=== PATIENT | female | born 1940 | race Caucasian/White ===

== ENCOUNTER 2024-03-29 18:51 | Inpatient (IN) ==
--- NOTE | 2024-03-29 19:07 | Emergency Department Note ---
Impression & Plan Expressive aphasia, AMS (altered mental status), Anemia, Acute hyponatremia, Hypertensive urgency ED Provider Note NAME: KENIA ACUÑA AGE: 83 SEX: F : 1940 ARRIVES VIA: Walk-In INFORMANT: Patient ED PROVIDER(S): Cordell Topete DO CHIEF COMPLAINT: Expressive aphasia HPI: Patient is an 83-year-old female with a past medical history of diabetes, hypertension, hyperlipidemia and small bowel obstruction who presents to the ER for expressive aphasia which started around 530 per the and she thinks it was around 430. The symptoms got better and then they worsened again and consequently came in. Has improved again. She denies any weakness or numbness in the arms or legs. She admits to a severe headache. No change or loss of vision. No chest pain or shortness of breath. No dysuria, urgency, or frequency. No other exacerbating or remitting factors. ADDITIONAL HISTORY OBTAINED: Per HPI Chronic Medical/Social Conditions Affecting Care: Per HPI PAST MEDICAL HISTORY:See Below PAST SURGICAL HISTORY:See Below FAMILY HISTORY:See Below SOCIAL HISTORY:See Below HOME MEDICATIONS:See Below ALLERGIES:See Below VITALS:See Below PHYSICAL EXAMINATION: GENERAL: Sitting up in bed, alert, well appearing, well nourished, no distress, non-toxic EYE EXAM: normal conjunctiva. PERRL and EOM's grossly intact. OROPHARYNX: mucous membranes are moist NECK: supple, no nuchal rigidity, no adenopathy, non-tender LUNGS: Clear to auscultation. Normal chest wall mechanics HEART: no murmurs, S1 normal and S2 normal ABDOMEN: abdomen soft, non-tender, normo-active bowel sounds, no masses, no rebound or guarding. BACK: Back is symmetrical on inspection and there is no deformity, no midline tenderness, no CVA tenderness. SKIN: no rashes and no bruising UPPER EXTREMITIES: upper extremities are grossly normal. LOWER EXTREMITIES: No pitting edema. NEURO EXAM: Normal sensorium, cranial nerves II-XII intact, slight stuttering and speech, no weakness of arms, no weakness of legs. No drift. Finger to nose intact. Gross sensation intact. MEDICAL DECISION MAKING: Patient is an 83-year-old female who presents ER for expressive aphasia. I was called to triage and evaluate the patient and stroke alert was called. IVs were established medicos obtained. Labs showed no significant leukocytosis and a mild anemia 10.8. With a hyponatremia at 125. Close was mildly elevated at 128. Mag slightly low at 1.2. LFTs bilirubin was unremarkable. Troponin was negative. CT angios of the head and neck were negative for any acute intracranial abnormalities. I discussed with telestroke neurology. Initially plan was to give TNK/prepare upon evaluation patient symptoms did improve significantly. We did treat the blood pressure with labetalol 10 mg as it was 210. This trended down to the 150s. Symptoms improved significantly. Question if this was hypertensive emergency versus TIA. Patient was discussed with the hospitalist admitted for further workup. Consults/Care Managements Discussions: Per [facility] Triage Nursing notes reviewed. Limited review of prior medical records performed Vital Signs: reviewed and remarkable for HTN Differential diagnosis: Differential Diagnosis includes but is not limited to ischemic Stroke, hemorrhagic stroke, bells palsy, mass, neoplasm, migraine headache, seizure, subarachnoid hemorrhage, TIA, and transient global amnesia. ER treatment provided: See below Diagnostics interpreted by me include EKG and cardiac monitoring as listed below: -Cardiac Monitoring: An order was placed for continuous cardiac monitoring. The monitor shows a rate of 80 with sinus rhythm. -ECG: Sinus rhythm rate 81 Left axis No PVCs QTc 457 -Laboratory studies:Interpreted by me as stated above in MDM and shown below. Imaging studies: Xrays: As interpreted by me: Portable AP upright 1 view of the chest shows elevated right hemidiaphragm CTs show: CT angios of the head and neck as described above Procedures:none Critical Care: I have personally spent 31 minutes of critical care time in the direct management of this patient. This includes bedside care, interpretation of diagnostic studies, and testing, discussion with consultants, patient, and family members, and other required patient management activities. This 31 minutes is in excess of all separately billable procedures. Past Med/Surg History Problem List (Updated 03/30/24 @ 00:59 by Cordell Topete DO) Hypertensive urgency (Acute) Acute hyponatremia (Acute) Anemia (Acute) AMS (altered mental status) (Acute) Expressive aphasia (Acute) Stroke-like symptom Hip bursitis, left Fracture of metatarsal of right foot, closed Diabetic ulcer of toe (Acute) DM2 (diabetes mellitus, type 2) (Chronic) HTN (hypertension) (Chronic) HLD (hyperlipidemia) (Chronic) Hx of total knee arthroplasty (Chronic) Hx of total hysterectomy (Chronic) H/O toe surgery (Chronic) S/P cholecystectomy (Chronic) History of carpal tunnel surgery (Chronic) History of esophagogastroduodenoscopy (EGD) (Chronic) H/O colonoscopy (Chronic) "diverticulosis 2013" History of cataract surgery (Chronic) Small bowel obstruction (Acute) Medical History Peripheral neuropathy Amputated toe Social History Smoking Status: Never smoker Hx Alcohol Use: Yes Alcohol type: wine Alcohol type Comment: daily w/dinner Alcohol Intake Frequency: 4 or More x per/Week Hx Substance Use: No Preferred Language: Norwegian Communication Ability: Effective Visual Impairment: Limited Hearing Ability: Normal Managed Care Specialist Required: No Beliefs That Will Affect Care: None marital status: Current Living Situation: Spouse current occupational status: retired Feels Safe at Home: Yes Safety Concerns: Feels Safe At This Time Diet: regular caffeine: Yes during the past year weight has: remained stable Gender Identity: Female Assistive Devices: Cane, Glasses and Walker Allergies Allergies Allergy/AdvReac Type Severity Reaction Status Date / Time Bleach (Sodium Hypochlorite) AdvReac Severe hives, Verified 03/29/24 22:18 itching, rash morphine AdvReac Mild SEVERE Verified 03/29/24 22:18 NAUSEA AND VOMITING Home Meds Home Medications Medication Instructions Recorded Confirmed acetaminophen 500 mg tablet 500 mg PO Q6H PRN Pain 03/29/24 03/29/24 (Tylenol Extra Strength) acyclovir 400 mg tablet 400 mg PO BID PRN flare up 03/29/24 03/29/24 amlodipine 2.5 mg tablet 2.5 mg PO DAILY 03/29/24 03/29/24 atorvastatin 20 mg tablet 20 mg PO DAILY 03/29/24 03/29/24 carvedilol 6.25 mg tablet 6.25 mg PO BID 03/29/24 03/29/24 cephalexin 500 mg capsule 500 mg PO TID 03/29/24 03/29/24 clobetasol 0.05 % topical cream 1 applic topical BID PRN flare 03/29/24 03/29/24 desonide 0.05 % topical cream 1 applic topical BID PRN flare up 03/29/24 03/29/24 ibuprofen 200 mg tablet 200 mg PO Q6H PRN Pain 03/29/24 03/29/24 lisinopril 40 mg tablet 40 mg PO DAILY 03/29/24 03/29/24 magnesium oxide 500 mg PO DAILY 03/29/24 03/29/24 metformin 500 mg tablet,extended 500 mg PO QAM 03/29/24 03/29/24 release 24 hr omeprazole 20 mg capsule,delayed 20 mg PO QAM 03/29/24 03/29/24 release peg 400-propylene glycol (PF) 0.4 1 drp ophthalmic (eye) BID 03/29/24 03/29/24 %-0.3 % eye drops in a dropperette (Systane (PF)) trazodone 100 mg tablet 100 mg PO HS 03/29/24 03/29/24 Results & Data (ED) Vital Signs Vital Signs - 24 hr 03/29/24 18:56 03/29/24 19:03 03/29/24 19:22 Temperature 36.6 C Temperature Source Temporal Artery Scan Pulse Rate 79 81 Pulse Rate [Radial] Respiratory Rate Respiratory Effort / Characteristics Respiratory Depth Respiratory Pattern Blood Pressure Blood Pressure [Right Arm] 207/102 H Blood Pressure Mean [Right Arm] 137 Pulse Oximetry 97 Oxygen Delivery Method Room Air Sepsis Recent Fever Within 48 Hours No Sepsis New/Unexplained Change in Mental Status No Sepsis Action Taken by Nursing No Action Required 03/29/24 19:27 03/29/24 19:31 03/29/24 19:37 Temperature Temperature Source Pulse Rate 81 Pulse Rate [Radial] 73 Respiratory Rate 17 Respiratory Effort / Characteristics Non-Labored Spontaneous Respiratory Depth Normal Respiratory Pattern Regular Blood Pressure 165/83 H Blood Pressure [Right Arm] 98/74 L 158/83 H Blood Pressure Mean [Right Arm] 82 108 Pulse Oximetry 98 Oxygen Delivery Method Room Air Sepsis Recent Fever Within 48 Hours Sepsis New/Unexplained Change in Mental Status Sepsis Action Taken by Nursing 03/29/24 20:09 03/29/24 20:30 Temperature Temperature Source Pulse Rate Pulse Rate [Radial] 73 73 Respiratory Rate 18 18 Respiratory Effort / Characteristics Non-Labored Spontaneous Non-Labored Spontaneous Respiratory Depth Normal Normal Respiratory Pattern Regular Regular Blood Pressure Blood Pressure [Right Arm] 182/74 H 148/101 H Blood Pressure Mean [Right Arm] 110 116 Pulse Oximetry 98 97 Oxygen Delivery Method Room Air Room Air Sepsis Recent Fever Within 48 Hours Sepsis New/Unexplained Change in Mental Status Sepsis Action Taken by Nursing Laboratory Data 03/29/24 19:20 03/29/24 19:20 Lab Results 03/29/24 03/29/24 03/29/24 Range/Units 19:16 19:20 19:22 WBC 5.75 (4.8-10.8) K/ul RBC 3.02 L (4.20-5.40) M/uL Hgb 10.8 L (12.0-16.0) g/dl POC Hgb 10.5 L (12.0-16.0) g/dl Hct 31.0 L (37.0-47.0) % POC Hct 31 L (37-47) % MCV 102.6 H (80.0-100.0) fL MCH 35.8 H (25.0-34.0) pg MCHC 34.8 (32.0-36.0) g/dL RDW Std Deviation 48.2 H (36.4-46.3) fL RDW Coeff of Jose G 12.8 (11.5-14.5) % Plt Count 196 (130-400) K/uL MPV 8.4 L (9.4-12.4) fL Immature Gran % (Auto) 0.3 % Neut % (Auto) 68.0 % Lymph % (Auto) 18.8 % [place] % (Auto) 11.0 % Eos % (Auto) 1.7 % Baso % (Auto) 0.2 % Neut # (Auto) 3.91 (1.40-6.50) K/uL Lymph # (Auto) 1.08 L (1.20-3.40) K/uL [place] # (Auto) 0.63 H (0.11-0.59) K/uL Eos # (Auto) 0.10 (0.00-0.50) K/uL Baso # (Auto) 0.01 (0.00-0.20) K/uL Immature Gran # (Auto) 0.02 (0.01-0.20) K/uL PT 11.0 (9.0-12.0) Seconds INR 1.0 (0.9-1.1) APTT 30 (21-31) Seconds PTT Ratio 1.1 POC Sodium 126 L (135-144) mmol/L Sodium 125 L (136-145) mmol/L POC Potassium 3.7 (3.3-5.0) mmol/L Potassium 3.6 (3.5-5.1) mmol/L POC Chloride 90 L (101-112) mmol/L Chloride 93 L (98-107) mmol/L Carbon Dioxide 25 (21-32) mmol/L POC Total CO2 24 (24-31) mmol/L Anion Gap 7 (3-11) POC Anion Gap 17.0 (16-25) mmol/L POC BUN 7 (7-18) mg/dl BUN 8 (6-23) mg/dl Creatinine 0.80 (0.6-1.2) mg/dl POC Creatinine 0.8 (0.6-1.3) mg/dl Est Cr Clr Drug Dosing 52.0 ml/min Est GFR ( Amer) 79.6 ml/min Est GFR (Non-Af Amer) 68.7 ml/min BUN/Creatinine Ratio 10.0 (10-20) Glucose 107 H (70-99(Fasting)) mg/dl POC Glucose 108 H (70-99) mg/dl POC Glucose (other) 103 H (70-99) mg/dl Calcium 8.5 L (8.6-10.3) mg/dl POC Ioniz Calcium Carmela 1.17 (1.12-1.32) mmol/l Magnesium 1.2 L (1.7-2.4) mg/dl Total Bilirubin 0.7 (0.2-1.0) mg/dl AST 20 (13-39) U/L ALT 13 (7-52) U/L Alkaline Phosphatase 68 (34-104) U/L Troponin I High Sens 8.1 (0-14) pg/ml Total Protein 5.9 L (6.0-8.3) gm/dl Albumin 3.9 (3.4-5.0) gm/dl Globulin 2.0 L (2.5-4.0) gm/dl Albumin/Globulin Ratio 2.0 (0.9-2) Administered Medications Cephalexin HCl (Cephalexin 500 Mg Cap) 500 mg PO TID [facility]; Protocol Stop: 04/05/24 22:44 Last Admin: 03/29/24 23:49 Dose: 500 mg Documented By: MARIA DOLORES Magnesium Sulfate/Dextrose (Magnesium Sulfate / D5w) 1 gm in 100 mls @ 50 mls/hr IV Q2H [facility] Stop: 03/30/24 02:59 Last Admin: 03/30/24 00:33 Dose: 50 mls/hr Documented By: MARIA DOLORES Infusion: 03/30/24 00:32 Dose: Infused Documented By: MARIA DOLORES Infusion: 03/29/24 23:40 Dose: 50 mls/hr Documented By: MARIA DOLORES Infusion: 03/29/24 22:45 Dose: 0 mls/hr Documented By: MARIA DOLORES Admin: 03/29/24 21:41 Dose: 50 mls/hr Documented By: MARIA DOLORES Sodium Chloride (Nss) 1,000 mls @ 80 mls/hr IV .[id number] [facility] Stop: 03/30/24 10:51 Last Admin: 03/29/24 23:50 Dose: 80 mls/hr Documented By: MARIA DOLORES Insulin Aspart (Insulin Aspart Per Unit Charge) 0 units SC Q6 [facility] Stop: 04/28/24 22:44 Last Admin: 03/29/24 23:48 Dose: Not Given Documented By: MARIA DOLORES Discontinued Medications Acetaminophen (Acetaminophen 325 Mg Tab) 650 mg PO NOW STA Stop: 03/29/24 21:05 Last Admin: 03/29/24 21:39 Dose: 650 mg Documented By: MARIA DOLORES Aspirin (Aspirin Chew 324 Mg) 324 mg PO NOW STA Stop: 03/29/24 21:21 Last Admin: 03/29/24 21:39 Dose: 324 mg Documented By: MARIA DOLORES Carvedilol (Carvedilol 3.125 Mg Tab) 6.25 mg PO NOW STA Stop: 03/29/24 21:34 Last Admin: 03/29/24 22:41 Dose: 6.25 mg Documented By: MARIA DOLORES Gadobutrol (Gadobutrol 65ml Vial) 7.5 ml IV ONCE ONE Stop: 03/29/24 23:14 Last Admin: 03/29/24 23:13 Dose: 7.5 ml Documented By: JUANIS Ioversol (Optiray 320 125ml) 118 ml IV ONCE ONE Stop: 03/29/24 19:09 Last Admin: 03/29/24 19:08 Dose: 118 ml Documented By: MINDY Labetalol HCl (Labetalol Hcl Iv 5 Mg/Ml 20ml) 10 mg IV NOW STA Stop: 03/29/24 19:22 Last Admin: 03/29/24 19:27 Dose: 10 mg Documented By: DAWOOD Labetalol HCl (Labetalol Hcl Iv 5 Mg/Ml 20ml) 10 mg IV NOW STA Stop: 03/29/24 21:20 Last Admin: 03/29/24 21:40 Dose: 10 mg Documented By: MARIA DOLORES Imaging Data Radiologist's Impression: Head CT 03/29/24 19:05 CR Exam(s): CT HEAD Without Contrast EXAM: CT Head Without Intravenous Contrast CLINICAL HISTORY: Reason for exam: neuro deficit, acute stroke suspected. TECHNIQUE: Axial computed tomography images of the head/brain without intravenous contrast. CTDI is 45.89 mGy and DLP is 677.48 mGy-cm. Automated exposure control was utilized for the study. A dose lowering technique was utilized adhering to the principles of ALARA. Mild motion artifact. COMPARISON: Head CT 02/04/24. FINDINGS: Brain: No mass effect or acute infarct. No acute hemorrhage. Mild to moderate atrophy and chronic white matter disease, stable. Ventricles: No hydrocephalus or midline shift. Bones/joints: No skull fracture. Soft tissues: No scalp hematoma. Visualized Sinuses: Clear. Mastoid air cells: No mastoid effusion. IMPRESSION: 1. Stable age-related findings. 2. No acute infarct, bleed, or acute intracranial abnormality. Communications: Call Doctor Stroke Electronically signed by: Ilana Young M.D. 03/29/24 19:34 PM Head CTA 03/29/24 19:05 CR Exam(s): CTA HEAD With Contrast IV Amt: OPTIRAY 320 118ML EXAM: CT Angiography Head With Intravenous Contrast CLINICAL HISTORY: Reason for exam: neuro deficit, acute stroke suspected. TECHNIQUE: Axial computed tomographic angiography images of the head with intravenous contrast. CTDI is 11.47 mGy and DLP is 398.9 mGy-cm. Automated exposure control was utilized for the study. A dose lowering technique was utilized adhering to the principles of ALARA. MIP reconstructed images were created and reviewed. Venous contamination and mild motion artifact. CONTRAST: Patient received OPTIRAY 320 118ML of IV contrast COMPARISON: Head CT done earlier. FINDINGS: Right internal carotid artery: Patent. Right anterior cerebral artery: Patent. Right middle cerebral artery: Patent. Right posterior cerebral artery: Patent. Right vertebral artery: Nondominant, terminates as a PICA. Left internal carotid artery: Patent. Left anterior cerebral artery: Patent. Left middle cerebral artery: Patent. Left posterior cerebral artery: Patent. Left vertebral artery: Moderate atherosclerotic calcification with approximately moderate, 50-60% stenosis. Basilar artery: Patent. Other: Bilateral cavernous ICA atherosclerosis, with approximately moderate, 50-60% stenosis. Patent dural venous sinuses. IMPRESSION: 1. Intracranial atherosclerosis and approximately, 50-60% stenosis. 2. No aneurysm or large vessel occlusion. Communications: Call Doctor Stroke Electronically signed by: Ilana Young M.D. 03/29/24 19:34 PM Neck CTA 03/29/24 19:05 CR Exam(s): CTA NECK With Contrast IV Amt: OPTIRAY 320 118ML EXAM: CT Angiography Neck With Intravenous Contrast CLINICAL HISTORY: Reason for exam: neuro deficit, acute stroke suspected. TECHNIQUE: Routine carotid CT angiography protocol was performed with intravenous contrast. NASCET criteria using the distal ICAs for comparison were used for evaluation of stenoses. CTDI is 11.47 mGy and DLP is 398.9 mGy-cm. Automated exposure control was utilized for the study. A dose lowering technique was utilized adhering to the principles of ALARA. MIP reconstructed images were created and reviewed. Mild motion and dental metal artifact. CONTRAST: Patient received OPTIRAY 320 118ML of IV contrast COMPARISON: None. FINDINGS: Right common carotid artery: Patent. Right internal carotid artery: Dense atherosclerotic calcification, with moderate, 60-70% stenosis.. Right vertebral artery: Patent. Left common carotid artery: Patent. Left internal carotid artery: Dense/complex atherosclerotic plaque, limited detail due to motion artifact. Moderate, 60-70% stenosis. Left vertebral artery: Patent. Left dominant system. Other: IMPRESSION: 1. Dense atherosclerotic calcification, with moderate bilateral ICA stenosis, 60-70%. 2. No other dissection/occlusion/significant stenosis. CAROTID STENOSIS REFERENCE USING NASCET CRITERIA: % ICA stenosis = (1 - narrowest ICA diameter/diameter of distal cervical ICA) x 100. Mild - <50% stenosis. Moderate - 50-69% stenosis. Severe - 70-94% stenosis. Near occlusion - 95-99% stenosis. Occluded - 100% stenosis. Communications: Call Doctor Stroke Electronically signed by: Ilana Young M.D. 03/29/24 19:34 PM Discharge Plan Visit Data Chief Complaint: Confusion Stated Complaint: DIFFICULTY WITH SPEECH FROM MED ED Provider: Cordell Topete Discharge Problem: Expressive aphasia, AMS (altered mental status), Anemia, Acute hyponatremia, Hypertensive urgency Discharge Instructions Interventions: ED Discharge Assessment Last Done: 03/29/24 22:22 Discharge Problem: AMS (altered mental status) Qualifiers: Altered mental status type: unspecified Qualified Code(s): R41.82 - Altered mental status, unspecified Anemia Qualifiers: Anemia type: unspecified type Qualified Code(s): D64.9 - Anemia, unspecified
[2024-03-29] MEDS: OPTIRAY 320 125ml IV ONE (19:08)
[2024-03-29] MEDS: LABETALOL HCL IV 5 MG/ML 20ML IV STA ×2 (19:27→21:40)
[2024-03-29 19:32] LABS: Basophils # (auto) 0.01 K/uL (0.00-0.20); Basophils % (auto) 0.2 %; Eosinophils % (auto) 1.7 %; Hemoglobin 10.8 g/dl (12.0-16.0); Immature Granulocytes # (auto) 0.02 K/uL (0.01-0.20); Immature Granulocytes % (auto) 0.3 %; Lymphocytes # (auto) 1.08 K/uL (1.20-3.40); Lymphocytes % (auto) 18.8 %; Mean Corpuscular Hemoglobin 35.8 pg (25.0-34.0); Mean Corpuscular Hgb Conc 34.8 g/dL (32.0-36.0); Mean Corpuscular Volume 102.6 fL (80.0-100.0); Mean Platelet Volume 8.4 fL (9.4-12.4); Monocytes # (auto) 0.63 K/uL (0.11-0.59); Neutrophils # (auto) 3.91 K/uL (1.40-6.50); Platelet Count 196 K/uL (130-400); RDW Coefficient of Variation 12.8 % (11.5-14.5); RDW Standard Deviation 48.2 fL (36.4-46.3); Red Blood Count 3.02 M/uL (4.20-5.40); White Blood Count 5.75 K/ul (4.8-10.8)
[2024-03-29 19:35] LABS: iSTAT Creatinine 0.8 mg/dl (0.6-1.3); iSTAT Hemoglobin 10.5 g/dl (12.0-16.0); iSTAT Ionized Calcium 1.17 mmol/l (1.12-1.32); iSTAT Potassium 3.7 mmol/L (3.3-5.0)
--- NOTE | 2024-03-29 19:35 | CT Scan Report ---
Exam(s): CTA HEAD With Contrast IV Amt: OPTIRAY 320 118ML EXAM: CT Angiography Head With Intravenous Contrast CLINICAL HISTORY: Reason for exam: neuro deficit, acute stroke suspected. TECHNIQUE: Axial computed tomographic angiography images of the head with intravenous contrast. CTDI is 11.47 mGy and DLP is 398.9 mGy-cm. Automated exposure control was utilized for the study. A dose lowering technique was utilized adhering to the principles of ALARA. MIP reconstructed images were created and reviewed. Venous contamination and mild motion artifact. CONTRAST: Patient received OPTIRAY 320 118ML of IV contrast COMPARISON: Head CT done earlier. FINDINGS: Right internal carotid artery: Patent. Right anterior cerebral artery: Patent. Right middle cerebral artery: Patent. Right posterior cerebral artery: Patent. Right vertebral artery: Nondominant, terminates as a PICA. Left internal carotid artery: Patent. Left anterior cerebral artery: Patent. Left middle cerebral artery: Patent. Left posterior cerebral artery: Patent. Left vertebral artery: Moderate atherosclerotic calcification with approximately moderate, 50-60% stenosis. Basilar artery: Patent. Other: Bilateral cavernous ICA atherosclerosis, with approximately moderate, 50-60% stenosis. Patent dural venous sinuses. IMPRESSION: 1. Intracranial atherosclerosis and approximately, 50-60% stenosis. 2. No aneurysm or large vessel occlusion. Communications: Call Doctor Stroke Electronically signed by: Ilana Young M.D. 03/29/24 19:34 PM
--- NOTE | 2024-03-29 19:35 | CT Scan Report ---
Exam(s): CT HEAD Without Contrast EXAM: CT Head Without Intravenous Contrast CLINICAL HISTORY: Reason for exam: neuro deficit, acute stroke suspected. TECHNIQUE: Axial computed tomography images of the head/brain without intravenous contrast. CTDI is 45.89 mGy and DLP is 677.48 mGy-cm. Automated exposure control was utilized for the study. A dose lowering technique was utilized adhering to the principles of ALARA. Mild motion artifact. COMPARISON: Head CT 02/04/24. FINDINGS: Brain: No mass effect or acute infarct. No acute hemorrhage. Mild to moderate atrophy and chronic white matter disease, stable. Ventricles: No hydrocephalus or midline shift. Bones/joints: No skull fracture. Soft tissues: No scalp hematoma. Visualized Sinuses: Clear. Mastoid air cells: No mastoid effusion. IMPRESSION: 1. Stable age-related findings. 2. No acute infarct, bleed, or acute intracranial abnormality. Communications: Call Doctor Stroke Electronically signed by: Ilana Young M.D. 03/29/24 19:34 PM
--- NOTE | 2024-03-29 19:35 | CT Scan Report ---
Exam(s): CTA NECK With Contrast IV Amt: OPTIRAY 320 118ML EXAM: CT Angiography Neck With Intravenous Contrast CLINICAL HISTORY: Reason for exam: neuro deficit, acute stroke suspected. TECHNIQUE: Routine carotid CT angiography protocol was performed with intravenous contrast. NASCET criteria using the distal ICAs for comparison were used for evaluation of stenoses. CTDI is 11.47 mGy and DLP is 398.9 mGy-cm. Automated exposure control was utilized for the study. A dose lowering technique was utilized adhering to the principles of ALARA. MIP reconstructed images were created and reviewed. Mild motion and dental metal artifact. CONTRAST: Patient received OPTIRAY 320 118ML of IV contrast COMPARISON: None. FINDINGS: Right common carotid artery: Patent. Right internal carotid artery: Dense atherosclerotic calcification, with moderate, 60-70% stenosis.. Right vertebral artery: Patent. Left common carotid artery: Patent. Left internal carotid artery: Dense/complex atherosclerotic plaque, limited detail due to motion artifact. Moderate, 60-70% stenosis. Left vertebral artery: Patent. Left dominant system. Other: IMPRESSION: 1. Dense atherosclerotic calcification, with moderate bilateral ICA stenosis, 60-70%. 2. No other dissection/occlusion/significant stenosis. CAROTID STENOSIS REFERENCE USING NASCET CRITERIA: % ICA stenosis = (1 - narrowest ICA diameter/diameter of distal cervical ICA) x 100. Mild - <50% stenosis. Moderate - 50-69% stenosis. Severe - 70-94% stenosis. Near occlusion - 95-99% stenosis. Occluded - 100% stenosis. Communications: Call Doctor Stroke Electronically signed by: Ilana Young M.D. 03/29/24 19:34 PM
[2024-03-29 19:44] LABS: Partial Thromboplastin Ratio 1.1; Partial Thromboplastin Time 30 Seconds (21-31)
[2024-03-29 19:52] LABS: Albumin Level 3.9 gm/dl (3.4-5.0); Bilirubin,Total 0.7 mg/dl (0.2-1.0); Calcium 8.5 mg/dl (8.6-10.3); Est GFR (African American) 79.6 ml/min; Est GFR (Non-African American) 68.7 ml/min; Magnesium 1.2 mg/dl (1.7-2.4); Potassium 3.6 mmol/L (3.5-5.1); Total Protein 5.9 gm/dl (6.0-8.3)
[2024-03-29 19:59] LABS: Troponin I High Sensitivity 8.1 pg/ml (0-14)
[2024-03-29] MEDS ORDERED: MAGNESIUM SULFATE / D5W 1 GM/100 ML BAG IV SCH (20:45)
--- OUTSIDE RECORDS SUMMARY | 2024-03-29 21:25 | External Medical Summary | Summary of Care ---
Author Name Unknown Organization [facility] Address [address] [place] [address] Phone [phone] Care Team Providers Care Tribal Delegate Name Role Phone Steven Waterman DO Primary Care Provider [phone] Encounter Details Date Type Department Care Team (Late st Contact Info) Description 03/20/2024 Orders Only Family Practice [address] [facility] [address] [place] [phone] Steven Waterman DO [address] [place] [address] Allergies Active Allergy Reactions Criticality Noted Date Comments Glutaral Rash 08/16/2018 Itchy, dry scabs Morphine Sulfate 06/02/2006 vomiting Cholestyramine 10/05/2021 NAUSEA AND VOMITING documented as of this encounter (statuses as of 03/20/2024) Medications Medication Sig Dispensed Refills Start Date End Date Status Polyethyl Glycol-Propyl Glycol 0.4-0.3 % Ophthalmic Solution Instill 1 Drop into both eyes in the morning and 1 Drop before bedtime. Active Desonide 0.05 % creamIndications:Al lergic dermatitis due to other chemical product APPLY TO RASH ON THE FACE & ARMS TWO TIMES A DAY NEEDED FOR FLARES 60 g 1 09/23/2019 Active Fluocinonide 0.05 % external solutionIndications :Allergic dermatitis due to other chemical product APPLY TO SCALP DAILY NEEDED FOR FLARES. 60 mL 1 04/10/2020 Active Acyclovir 400 MG Oral Tablet (ZOVIRAX) Take 1 Tab by mouth 2 times a day. for supression 60 Tab 11 06/01/2020 Active Magnesium Oxide 500 MG Oral Capsule Take 500 mg by mouth daily. 30 Capsule 5 06/15/2021 Active Additional Information Patient taking differently:500 mg OralBID (0700,1900), Reported on 10/03/2022 Clobetasol Propionate 0.05 % External Cream (Temovate)Indicatio ns:Dermatitis APPLY TO RASH ON THE ARMS AND BODY TWICE DAILY FOR 1 WEEK NEEDED FOR FLARES 60 g 1 09/23/2021 Active Acetaminophen 500 MG Oral Tablet (Tylenol) Take 1 Tablet by mouth every 6 hours as needed for Pain, Moderate. 100 Tablet 12/07/2021 Active Atorvastatin Calcium 20 MG Oral Tablet (Lipitor) TAKE 1 TABLET BY MOUTH EVERY DAY 90 Tablet 3 07/25/2023 Active Ibuprofen 200 MG Oral Tablet (Advil) Take 1 Tablet by mouth every 4 hours as needed. Active Lisinopril 40 MG Oral TabletIndications:H TN, goal below 140/90 TAKE 1 TABLET BY MOUTH EVERY DAY 90 Tablet 3 09/26/2023 Active traZODone HCl 100 MG Oral Tablet (Desyrel) TAKE 1 TABLET BY MOUTH EVERYDAY AT BEDTIME 90 Tablet 2 11/08/2023 Active Carvedilol 6.25 MG Oral Tablet (Coreg)Indications: HTN, goal below 140/90 TAKE 1 TABLET BY MOUTH TWICE A DAY WITH BREAKFAST AND DINNER 180 Tablet 1 11/17/2023 Active Omeprazole 20 MG Oral Capsule Delayed Release (PriLOSEC)Indicatio ns:Gastroesophageal reflux disease without esophagitis TAKE 1 CAPSULE BY MOUTH EVERY DAY IN THE MORNING 1 HOUR PRIOR TO FIRST MEAL 90 Capsule 3 01/18/2024 Active Tavaborole 5 % External Solution APPLY TOPICALLY TO AFFECTED TOENAILS ONCE DAILY FOR 48 WEEKS (6 MONTHS) Active metFORMIN HCl ER 500 MG Oral Tablet Extended Release 24 Hour (Glucophage XR)Indications:Type 2 diabetes mellitus with diabetic peripheral angiopathy without gangrene, without long-term current use of insulin (HCC),Type 2 diabetes mellitus with hemoglobin A1c goal of less than 7.0% (HCC) Take 1 Tablet by mouth 2 times a day with morning and evening meals. 200 Tablet 3 01/29/2024 Active Additional Information Patient taking differently:500 mg OralDaily(AM), Reported on 02/06/2024 amLODIPine Besylate 2.5 MG Oral Tablet (Norvasc) TAKE 1 TABLET BY MOUTH EVERY DAY 90 Tablet 3 02/29/2024 Active documented as of this encounter (statuses as of 03/20/2024) Active Problems Problem Noted Date Diagnosed Date Nontraumatic complete tear of left rotator cuff 09/22/2023 Purpura senilis 09/24/2020 Anxiety, generalized 02/28/2020 Dyslipidemia 08/15/2019 Gastroesophageal reflux disease without esophagi tis 08/15/2019 History of partial amputation of toe of left perlita t 02/12/2019 Acquired absence of other left toe(s) 08/15/2018 Type 2 diabetes mellitus wit h diabetic peripheral angiopathy without gangrene, without long-term current use of insulin 01/24/2017 HTN, goal below 140/90 10/14/2014 Type 2 diabetes mellitus wit h hemoglobin A1c goal of less than 7.0% 05/28/2009 Overview: Per Diabetes Taxonomy. ICD-10 update of inactive term Knee joint replacement status 09/06/2006 ADVANCE DIRECTIVE INFORMATION 02/02/2005 Overview: No, Advance Directive brochure given to patient. documented as of this encounter (statuses as of 03/20/2024) Resolved Problems Problem Noted Date Diagnosed Date Resolved Date Skin ulcer of toe of right f oot with fat layer exposed 12/07/2021 12/07/2021 Avascular necrosis of talus, right 08/15/2018 09/22/2023 Amputated toe, right 08/15/2018 019 Type 2 diabetes mellitus wit h stage 3 chronic kidney disease and hypertension 03/06/2018 03/04/20 24 Kidney disease, chronic, sta ge III (GFR 30-59 ml/min) 05/09/2016 03/06/2018 Overview: Per CKD protocol #1 HTN, goal below 140/80 03/19/201210/14 Overview: Per HTN Protocol #27. HTN, GOAL BELOW 130/80 06/23/200903/22 Overview: Modified per HTN protocol #16. HTN, goal to be determined 11/07/2006 1 08/23/2008 Overview: Modified per HTN protocol #16. Type 2 diabetes mellitus wit h hemoglobin A1c goal of less than 7.0% 11/07/2006 05/28/2009 Overview: Per Diabetes Taxonomy. ICD-10 update of inactive term Anticoagulation management encounter 09/06/2006 09/17/2016 OSTEOARTHROS NOS-L-LEG 05/13/200308/15 documented as of this encounter (statuses as of 03/20/2024) Immunizations Name Administration Dates Next Due COVID-19 mRNA, LNP-s, No Pre serve, 2-Dose Series (Moderna) 09/26/2020,08/22/2020 COVID-19, MRNA-LNP, 23-24, P F, 30 MCG/0.3 mL, 12 YRS AND ABOVE, IM (PFIZER-Comirnaty) 01/29/2024,05/19/2023 COVID-19, mRNA, LNP-s, PF, B ooster, 100mcg/0.5mg (Moderna) 05/03/2022,10/12/2021,05/31/2021 Covid-19, Mrna, Lnp-s, Pf, B ivalent, 30 Mcg, IM, 12 yrs and above (CallAround) 05/03/2022 Pneumococcal Conjugate Vacc, 13 Valent (Prevnar) 10/16/2015 Pneumococcal Polysaccharide PPV23 (Pneumovax) 09/01/2014,11/15/2005 RSV Vac., Bivalent, Perfusio n F, Pf,0.5 Ml (Abrysvo) 10/02/2023 Seasonal Influenza, Quadriva lent Hd (Fluzone Hd) 04/04/2023 Seasonal Influenza, Quadriva lent Hd, 65+ Yrs 03/21/2020 Seasonal Influenza, Quadrivalent, ID 04/30/2018 Seasonal Influenza, Split, I IV3, With Preserve, Inj 06/03/2015,04/30/2014,04/23/2013,04/04,04/04/2011,04/13/2010,06/03/2009 ,06/06/2007,06/09/2006 Seasonal Influenza, Trivalen t, High Dose, No Preserve, IM 04/07/2022,04/07/2021,05/06/2019,04/28,05/04/2016 TD, Preservative Free 06/26/2007 TDAP (age 10 and older)(Boostrix) 09/01/2014 Varicella Zoster Vaccine (Adult) 06/30/2006 Zoster Vaccine Recombinant (Shingrix) 01/19/2018 ,11/01/2017 documented as of this encounter Social History Tobacco Use Types Packs/Day Years Used Date Smoking Tobacco: Never Passive Smoke Exposure: Past Smokeless Tobacco: Never Alcohol Use Standard Drinks/Week Comments Yes 0 (1 standard drink = 0.6 oz pur e alcohol) 2/day PHQ-2 Answer Date Recorded PHQ Adult Total Score 1 10/02/2023 Hunger Vital Sign Answer Date Recorded Within the past 12 months, y ou worried that your food would run out before you got the money to buy more. Never true 04/04/20 23 Within the past 12 months, t he food you bought just didn't last and you didn't have money to get more. Never true 04/04/2023 Childcare Answer Date Recorded Do you feel overwhelmed with taking care of a child, family member or friend? No 04/04/2023 Does your family need help f inding childcare? (Household - for ages 0-17 years) Not on file 04/04/2023 Clothing Answer Date Recorded Have you been unable to get clothing when it was really needed? No 04/04/2023 Is your family able to get c lothes or diapers when needed? (Household - for ages 0-17 years) Not on file 04/04/2023 Personal Safety Answer Date Recorded Do you feel unsafe or have concerns for your saf ety? No 04/04/2023 Do you have concerns for you r family's safety? (Household - for ages 0-17 years) Not on file 04/04/2023 Utilities Answer Date Recorded Do you have trouble paying y our heating, water, or electric bill? No 04/04/2023 Is your family able to pay t he heat, water, or electric bill? (Household - for ages 0-17 years) Not on file 04/04/2023 Does your family have access to good internet? (Household - for ages 0-17 years) Not on file 04/04/2023 Employment Status Answer Date Recorded Are you unemployed or without regular income? No 04/04/2023 Does the household have a re gular source of income? (Household - for ages 0-17 years) Not on file 04/04/2023 Social Connections Answer Date Recorded How often do you feel lonely or isolated from th ose around you? Never 04/04/2023 Financial Resource Strain Answer Date R ecorded Do you have any trouble payi ng for your medications, or do you think you might in the future? No 04/04/2023 Does your family have troubl e paying for medicine? (Household - for ages 0-17 years) Not on file 04/04/2023 Transportation Needs Answer Date Record ed READ ONLY Do you have troubl e getting a ride to medical visits or work? Never True 04/04/2023 Does your family have a hard time getting a ride to doctors visits? (Household - for ages 0-17 years) Not on file 04/04/2023 Has lack of transportation k ept you from medical appointments, meetings, work, or from getting things needed for daily living? Check all that apply. (Adult - for ages 18 years and over) Not on file 04/04/2023 Do you (or your family) have trouble finding or paying for a ride (transportation)? (Household - for ages 0-17 years) Not on file 04/04/2023 Housing Stability Answer Date Recorded Do you currently live in a s helter or have no steady place to sleep at night? No 04/04/2023 READ ONLY Do you think you a re at risk of becoming homeless? No 04/04/2023 Does your family worry about paying for your home or becoming homeless? (Household - for ages 0-17 years) Not on file 0 04/04/2023 Are you homeless or worried that you might be in the future? (Adult - for ages 18 years and over) Not on file Are you (or your family) ruben eless or worried that you might be in the future? (Household - for ages 0-17 years) Not on file Food Insecurity Answer Date Recorded Do you need food for this week? No 04/04/2023 Are you able to get enough f ood for your family? (Household - for ages 0-17 years) Not on file 04/04/2023 Does your family need food t his week? (Household - for ages 0-17 years) Not on file 04/04/2023 Do you always have enough fo od for your family? (Household - for ages 0-17 years) Not on file 04/04/2023 Sex and Gender Information Value Date Recorded Sex Assigned at Female 02/11/2022 11:51 AM EDT Gender Identity Female 02/11/2022 11:51 AM EDT Sexual Orientation Straight 02/11/2022 11 :51 AM EDT Job Start Date Occupation Industry Not on file Not on file Not on file documented as of this encounter Plan of Treatment Upcoming Encounters Date Type Department Care Team (Late st Contact Info) Description 04/23/2024 10:45 AM EDT Office Visit [facility] [address] [place] [phone] Shekhar Gordillo MD [address] [place] [address] 04/30/2024 11:20 AM EDT Office Visit [facility] [address] [place] [address] Maryam Gordon MD [address] [facility] [place] [address] 05/02/2024 10:00 AM EDT Office Visit [facility] [address] [facility] [place] [address] Thomas Barros PA-C [address] [place] [address] 06/04/2024 10:40 AM EST Office Visit Family Practice [address] [place] [address] [address] [place] [phone] Steven Waterman DO [address] [place] [address] 10/04/2024 1:00 PM EST Nurse Only Ancillary [address] [place] [address] [place] [address] College, Nurse Annual Wellness Visit [address] [facility] [address] [place] [address] Health Maintenance Due Date Last Done Comments DXA Scan 03/14/2022 03/14/2018, 0 12/2013, 04/02/2010, Additional history exists Influenza Vaccine (FLU shot) (#1) 2024 04/04/2023, 04/07/2022, 04/07/2021, Additional history exists HbA1c 07/27/2024 01/26/2024, 08/31, 05/08/2023, Additional history exists DTaP,Tdap,and Td Vaccines (2 - Td or Tdap) 09/01/2024 09/01/2014, 06/26/2007 Adult Wellness Visit 10/01/2024 10/02/2023, 09/30/19 23 Depression Screening 10/01/2024 10/02/2023 Albumin/Creatinine Ratio 01/25/2025 024, 03/27/2023, 06/17/2022, Additional history exists GFR 01/25/2025 01/26/2024, 09/29, 10/13/2023, Additional history exists Diabetic Foot Exam 03/04/2025 03/04/2024, 0 04/04/2023, 02/11/2022, Additional history exists Diabetic Eye Exam 03/20/2025 03/20/2024, , 03/15/2023, Additional history exists Pneumococcal Vaccine: 65+ Years Completed 10/16/2015, 09/01/2014, 11/15/2005 Zoster Vaccines Completed 01/19/2018, 040 10/2017, 06/30/2006 COVID-19 Vaccine Completed 01/29/2024, , 05/03/2022, Additional history exists HPV (Gardasil) Vaccine Aged Out No lo nger eligible based on patient's age to complete this topic Hepatitis B Vaccine Aged Out No longe r eligible based on patient's age to complete this topic MENINGOCOCCAL (MENACTRA/MENVEO) Aged Out No longer eligible based on patient's age to complete this topic documented as of this encounter Medical Devices Implanted Type Area Tennis Centre Manager Device Identifier Shelf Expiration Date Model / Serial / Lot Biocomposite Knotless Corkscrew Suture Marshallberg Implanted:Qty: 4 on 01/14/2022 by Fernando Armstrong DO at OR [facility] Right: Shoulder [employer] 04/29/2023 AR-[id number] / / [id number] Suture Marshallberg, Biocomposite Swivelock With Closed Peek Eyelet Implanted:Qty: 1 on 01/14/2022 by Fernando Armstrong DO at OR [facility] Right: Shoulder 07/30/2025 AR-2324BCC TT / / [id number] Suture Marshallberg, Biocomposite Swivelock With Closed Peek Eyelet Implanted:Qty: 1 on 01/14/2022 by Fernando Armstrong DO at OR [facility] Right: Shoulder 07/30/2025 AR-2324BCC T / / [id number] Graft Arthroflex [id number] (28 Units) - [id number] - [id number] Implanted:Qty: 1 on 01/14/2022 by Fernando Armstrong DO at OR [facility] Right: Shoulder [employer] 07/15/2022 [id number] Biocomposite Knotless Swivelock Marshallberg Implanted:Qty: 1 on 01/14/2022 by Fernando Armstrong DO at OR [facility] Right: Shoulder [employer] 10/28/2025 AR-2324KBC C / / [id number] Biocomposite Knotless Swivel Lock Marshallberg Implanted:Qty: 1 on 01/14/2022 by Fernando Armstrong DO at OR [facility] Right: Shoulder [employer] 10/28/2025 AR-2324KBC C / / [id number] documented as of this encounter Procedures Procedure Name Priority Date/Time Associated Diagnosis Comments DIABETIC EYE EXAM Routine 03/20/2024 documented in this encounter Results * DIABETIC EYE EXAM (03/20/2024) 03/20/2024 History Per Patient OTHER OUTSIDE LAB (SEE SCANNED REPORT) documented in this encounter Care Teams Tribal Delegate Relationship Specialty Start Date End Date Steven Waterman DO [address] [place] [address] PCP - General Internal Medicine 01/12/24 documented as of this encounter
[2024-03-29] MEDS: ACETAMINOPHEN 325 MG TAB PO STA (21:39)
[2024-03-29] MEDS: ASPIRIN CHEW 324 MG PO STA (21:39)
[2024-03-29] MEDS: MAGNESIUM SULFATE / D5W 1 GM/100 ML BAG IV SCH (21:41)
[2024-03-29] MEDS ORDERED: GLUCOSE 40% GEL 15 GM TUBE PO PRN (22:22)
[2024-03-29] MEDS ORDERED: POLYETHYLENE (MIRALAX) 17 GM PACK PO PRN (22:22)
[2024-03-29] MEDS ORDERED: CARBOHYDRATES FOR HYPOGLYCEMIA PO PRN (22:22)
[2024-03-29] MEDS ORDERED: ACETAMINOPHEN 325 MG TAB PO PRN (22:22)
[2024-03-29] MEDS ORDERED: PHARMACIST DISCHARGE MED REC CONSULT PRN (22:22)
[2024-03-29] MEDS ORDERED: GLUCOSE 10 TAB/TUBE PO PRN (22:22)
[2024-03-29] MEDS ORDERED: GLUCAGON FOR INJ 1 MG VIAL SQ PRN (22:22)
[2024-03-29] MEDS ORDERED: DEXTROSE 50% 50 ML SYRINGE IV PRN (22:22)
[2024-03-29] MEDS ORDERED: NITROGLYCERIN SL 0.4 MG/TAB TAB SL PRN (22:22)
--- OUTSIDE RECORDS SUMMARY | 2024-03-29 22:23 | External Medical Summary | Summary of Care ---
Author Name Unknown Organization [facility] Address [address] [place] [address] Phone [phone] Care Team Providers Care Check Scaler Name Role Phone Steven Waterman DO Primary Care Provider [phone] Reason for Referral * Evaluate & Treat - Unlimited Visits (Within 10 days (routine)) - Authorized Specialty Diagnoses / Procedures Referred By Contac t Referred To Contact Wound Care Diagnoses Ulcer of right lower extremity, limited to breakdown of skin (HCC) Steven Waterman DO [address] [place] [address] Referral ID Status Reason Start Date Expiration Date Visits Requested Visits Authorized [id number] Authorized Specialty Services Required 03/29/[phone] Question Answer Referral Priority Within 10 days (routine) Where should this appointment be scheduled? [facility] Where is the wound? Below the knee Comments Assess for: Hx of wound healing problem and Other: PVD Reason for Visit * Reason Comments Acute Encounter Details Date Type Department Care Team (Late st Contact Info) Description 03/29/2024 1:40 PM EDT Office Visit Family Practice [address] [place] [address] [place] [address] Steven Waterman DO [address] [place] [address] Ulcer of right lower extremity, limited to breakdown of skin (HCC)*; Cellulitis of right lower extremity; Type 2 diabetes mellitus with diabetic peripheral angiopathy without gangrene, without long-term current use of insulin (HCC); History of partial amputation of toe of left foot (HCC); HTN, goal below 140/90; Dyslipidemia; Gastroesophageal reflux disease without esophagitis; Anxiety, generalized Allergies Active Allergy Reactions Criticality Noted Date Comments Glutaral Rash 08/16/2018 Itchy, dry scabs Morphine Sulfate 06/02/2006 vomiting Cholestyramine 10/05/2021 NAUSEA AND VOMITING documented as of this encounter (statuses as of 03/29/2024) Medications Medication Sig Dispensed Refills Start Date End Date Status Polyethyl Glycol-Propyl Glycol 0.4-0.3 % Ophthalmic Solution Instill 1 Drop into both eyes in the morning and 1 Drop before bedtime. Active Desonide 0.05 % creamIndications :Allergic dermatitis due to other chemical product APPLY TO RASH ON THE FACE & ARMS TWO TIMES A DAY NEEDED FOR FLARES 60 g 1 09/23/2019 Active Fluocinonide 0.05 % external solutionIndicati ons:Allergic dermatitis due to other chemical product APPLY [...] 10/03/2022 Clobetasol Propionate 0.05 % External Cream (Temovate)Indica tions:Dermatitis APPLY TO RASH ON THE ARMS AND [...] as needed. Active Lisinopril 40 MG Oral TabletIndication s:HTN, goal below 140/90 TAKE 1 TABLET BY MOUTH EVERY DAY 90 Tablet 3 09/26/2023 Active traZODone HCl 100 MG Oral Tablet (Desyrel) TAKE 1 TABLET BY MOUTH EVERYDAY AT BEDTIME 90 Tablet 2 11/08/2023 Active Carvedilol 6.25 MG Oral Tablet (Coreg)Indicatio ns:HTN, goal below 140/90 TAKE 1 TABLET BY MOUTH TWICE A DAY WITH BREAKFAST AND DINNER 180 Tablet 1 11/17/2023 Active Omeprazole 20 MG Oral Capsule Delayed Release (PriLOSEC)Indica tions:Gastroesop hageal reflux disease without esophagitis TAKE 1 CAPSULE BY MOUTH EVERY DAY IN THE MORNING 1 HOUR PRIOR TO FIRST MEAL 90 Capsule 3 01/18/2024 Active Tavaborole 5 % External Solution APPLY TOPICALLY TO AFFECTED TOENAILS ONCE DAILY FOR 48 WEEKS (6 MONTHS) Active metFORMIN HCl ER 500 MG Oral Tablet Extended Release 24 Hour (Glucophage XR)Indications:T ype 2 diabetes mellitus with diabetic peripheral angiopathy without gangrene, without long-term current use of insulin ([facility]),Type 2 diabetes mellitus with hemoglobin A1c goal of less than 7.0% (HCC) Take 1 Tablet by mouth 2 times a day with morning and evening meals. 200 Tablet 3 01/29/2024 Active Additional Information Patient taking differently:500 mg OralDaily(AM), Reported on 02/06/2024 amLODIPine Besylate 2.5 MG Oral Tablet (Norvasc) TAKE 1 TABLET BY MOUTH EVERY DAY 90 Tablet 3 02/29/2024 Active Cephalexin 500 MG Oral Capsule (Keflex)Indicati ons:Cellulitis of right lower extremity Take 1 Capsule by mouth in the morning and 1 Capsule at noon and 1 Capsule before bedtime. Do all this for 10 days. 30 Capsule 03/29/2024 4 Active Amoxicillin-Pot Clavulanate 875-125 MG Oral Tablet (Augmentin)Indic ations:Celluliti s of right upper extremity Take 1 Tablet by mouth in the morning and 1 Tablet before bedtime. Do all this for 7 days. 14 Tablet 03/04/2024 4 Discontinued documented as of this encounter (statuses as of 03/29/2024) Active Problems Problem Noted Date Diagnosed Date [...] as of this encounter (statuses as of 03/29/2024) Resolved Problems Problem Noted Date Diagnosed Date [...] as of this encounter (statuses as of 03/29/2024) Immunizations Name Administration Dates Next Due COVID-19 mRNA, LNP-s, No Pre serve, 2-Dose Series (Moderna) 09/26/2020,08/22/2020 COVID-19, MRNA-LNP, 23-24, P F, 30 MCG/0.3 mL, 12 YRS AND ABOVE, IM (PFIZER-Comirnaty) 01/29/2024,05/19/2023 COVID-19, mRNA, LNP-s, PF, B ooster, 100mcg/0.5mg (Moderna) 05/03/2022,10/12/2021,05/31/2021 Covid-19, Mrna, Lnp-s, Pf, B ivalent, 30 Mcg, IM, 12 yrs and above (Pfizer) 05/03/2022 Pneumococcal Conjugate Vacc, 13 Valent (Prevnar) 10/16/2015 Pneumococcal Polysaccharide PPV23 (Pneumovax) 09/01/2014,11/15/2005 RSV Vac., Bivalent, Perfusio n F, Pf,0.5 Ml (Abrysvo) 10/02/2023 Seasonal Influenza, High Dos e, Trivalent, PF, IM (Fluzone HD) 04/07/2022,04/07/2021,05/06/2019,04/28,05/04/2016 Seasonal Influenza, Quadriva lent Hd (Fluzone Hd) 04/04/2023 Seasonal Influenza, Quadriva lent Hd, 65+ Yrs 03/21/2020 Seasonal Influenza, Quadrivalent, ID 04/30/2018 Seasonal Influenza, Trivalen t, (IIV3), with Preserv, (Fluzone) 06/03/2015,04/30/2014,04/23/2013,04/04,04/04/2011,04/13/2010,06/03/2009 ,06/06/2007,06/09/2006 TD, Preservative Free 06/26/2007 TDAP (age 10 and older)(Boostrix) 09/01/2014 Varicella Zoster Vaccine (Adult) 06/30/2006 Zoster Vaccine Recombinant (Shingrix) 01/19/2018 ,11/01/2017 documented as of this encounter Social History Tobacco Use Types Packs/Day Years Used Date Smoking Tobacco: Never Passive Smoke Exposure: Past Smokeless Tobacco: Never Tobacco Cessation:Counseling Given: Yes Alcohol Use Standard Drinks/Week Comments Yes 0 [...] on file documented as of this encounter Last Filed Vital Signs Vital Sign Reading Time Taken Comments Blood Pressure 118/62 03/29/2024 1:49 PM EDT Pulse 64 03/29/2024 1:49 PM EDT Temperature 36 C (96.8 F) 03/29/2024 1:49 PM EDT Respiratory Rate 18 03/29/2024 1:49 PM EDT Oxygen Saturation 98% 03/29/2024 1:49 PM EDT Inhaled Oxygen Concentration - - Weight 76.5 kg (168 lb 9.6 oz) 03/29/2024 1:49 P M EDT Height 157.5 cm (5' 2") 03/29/2024 1:49 PM EDT Body Mass Index 30.84 03/29/2024 1:49 PM EDT documented in this encounter Progress Notes * Steven Waterman, - 03/29/2024 2:14 PM EDT SUBJECTIVE: Zeina Mahmood is a 83 year old female. Chief Complaint Patient presents with Acute HPI: Patient is an 83 year old female with a history of DM type II, HTN, Hyperlipidemia, CKD stage III, GERD, PVD, bilateral knee replacement, and multiple procedures on her feet that is seen for right leg wound that has been present for 2 weeks. The patient hit her right leg going up stairs 2 weeks ago and had a skin tear. The lesion is larger and is not healing. No chest pain or shortness of breath are present. Patient Active Problem List Diagnosis ADVANCE DIRECTIVE INFORMATION Knee joint replacement status Type 2 diabetes mellitus with hemoglobin A1c goal of less than 7.0% ([facility]) HTN, goal below 140/90 Type 2 diabetes mellitus with diabetic peripheral angiopathy without gangrene, without long-term current use of insulin (HCC) Acquired absence of other left toe(s) ([facility]) History of partial amputation of toe of left foot (HCC) Dyslipidemia Gastroesophageal reflux disease without esophagitis Anxiety, generalized Purpura senilis (HCC) Nontraumatic complete tear of left rotator cuff Current Outpatient Medications Medication Sig Dispense Refill Acyclovir 400 MG Oral Tablet (ZOVIRAX) Take 1 Tab by mouth 2 times a day. for supression 60 Tab 11 Magnesium Oxide 500 MG Oral Capsule Take 500 mg by mouth daily. (Patient taking differently: Take 500 mg by mouth in the morning and 500 mg in the evening.) 30 Capsule 5 Acetaminophen 500 MG Oral Tablet (Tylenol) Take 1 Tablet by mouth every 6 hours as needed for Pain,Moderate. 100 Tablet 0 Atorvastatin Calcium 20 MG Oral Tablet (Lipitor) TAKE 1 TABLET BY MOUTH EVERY DAY 90 Tablet 3 Ibuprofen 200 MG Oral Tablet (Advil) Take 1 Tablet by mouth every 4 hours as needed. Lisinopril 40 MG Oral Tablet TAKE 1 TABLET BY MOUTH EVERY DAY 90 Tablet 3 traZODone HCl 100 MG Oral Tablet (Desyrel) TAKE 1 TABLET BY MOUTH EVERYDAY AT BEDTIME 90 Tablet 2 Carvedilol 6.25 MG Oral Tablet (Coreg) TAKE 1 TABLET BY MOUTH TWICE A DAY WITH BREAKFAST AND [id number] Tablet 1 Omeprazole 20 MG Oral Capsule Delayed Release (PriLOSEC) TAKE 1 CAPSULE BY MOUTH EVERY DAY IN THE MORNING 1 HOUR PRIOR TO FIRST MEAL 90 Capsule 3 metFORMIN HCl ER 500 MG Oral Tablet Extended Release 24 Hour (Glucophage XR) Take 1 Tablet by mouth2 times a day with morning and evening meals. (Patient taking differently: Take 1 Tablet by mouth in the morning.) 200 Tablet 3 amLODIPine Besylate 2.5 MG Oral Tablet (Norvasc) TAKE 1 TABLET BY MOUTH EVERY DAY 90 Tablet 3 Cephalexin 500 MG Oral Capsule (Keflex) Take 1 Capsule by mouth in the morning and 1 Capsule at noon and 1 Capsule before bedtime. Do all this for 10 days. 30 Capsule 0 Polyethyl Glycol-Propyl Glycol 0.4-0.3 % Ophthalmic Solution Instill 1 Drop into both eyes in the morning and 1 Drop before bedtime. Desonide 0.05 % cream APPLY TO RASH ON THE FACE & ARMS TWO TIMES A DAY NEEDED FOR FLARES 60 g 1 Fluocinonide 0.05 % external solution APPLY TO SCALP DAILY NEEDED FOR FLARES. 60 mL 1 Clobetasol Propionate 0.05 % External Cream (Temovate) APPLY TO RASH ON THE ARMS AND BODY TWICE DAILY FOR 1 WEEK NEEDED FOR FLARES 60 g 1 Tavaborole 5 % External Solution APPLY TOPICALLY TO AFFECTED TOENAILS ONCE DAILY FOR 48 WEEKS (6 MONTHS) No current facility-administered medications for this visit. The patient's medication list was reviewed and updated as needed. Past Medical History: Diagnosis Date Acquired absence of other left toe(s) ([facility]) 08/15/2018 Bowel obstruction ([facility]) 02/2016 [facility] Diabetic eye exam ([facility]) 08/27/2013 no retinopathy DM type 2, goal A1c below 7 Dyslipidemia 08/15/2019 Fracture, toe 05/2016 Left great toe Gastroesophageal reflux disease without esophagitis 08/15/2019 Hemorrhoids History of partial amputation of toe of left foot ([facility]) 02/12/2019 HTN, goal below 140/90 10/14/2014 Knee joint replacement status 09/06/2006 Osteoarthritis of knee Retinal detachment 06/2015 PPV/EL/C3F8 12%/PST triescence 20mg for Mac-Off RD with serous chorodidals OS, Dr. Toro Retinal tear 09/2015 OD-laser Procedure, Dr. Toro Tendonitis left arm Type 2 diabetes mellitus with stage 3 chronic kidney disease and hypertension ([facility]) 03/06/2018 Past Surgical History: Procedure Laterality Date ARTHO,SHOUL,W/ROTATOR CUFF Right 01/14/2022 ARTHROSCOPY SHOULDER ROTATOR CUFF performed by Fernando Armstrong DO at OR [facility] BUNION CORRECTED WITH DOUBLE OSTEOTOMY BUNION CORRECTED WITH DOUBLE OSTEOTOMY CARPAL TUNNEL SURGERY 09/2007 CARPAL TUNNEL SURGERY 10/2007 COLONOSCOPY diverticulitis acute/[facility] COLONOSCOPY, DIAGNOSTIC (RECTUM) 08/02/2013 COLONOSCOPY FLEXIBLE PROXIMAL DIAGNOSTIC performed by Madan Mendez MD at [facility] DENTAL SURGERY PROCEDURE NEC Dental Surgery Procedure wisdom teeth DIABETIC EYE EXAM 12/02/11 no retinopathy EGD, FLEXIBLE, W/BIOPSY 04/10/09 pathology--stomach, minimal chronic inflammation without H.Pylori--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 Toro MAMMOGRAM - BILATERAL 04/07/05 Birad code 2/benign findings MAMMOGRAM - BILATERAL 04/18/06 birad code 2 MAMMOGRAM - BILATERAL 04/19/07 birad code 2 MAMMOGRAM DIAGNOSTIC BILATERAL 04/23/09 birad code 2,yearly recommended MAMMOGRAM DIAGNOSTIC BILATERAL 04/26/2010 birad code 1,negative,yearly recommended MAMMOGRAM SCREENING BILATERAL 04/28/11 birad code 2 MAMMOGRAM SCREENING-BILATERAL 04/22/08 birad 2, benign, yearly reccm. NAIL BED, PERMANENT REMOVAL 2 PARTIAL REMOVAL OF EYE FLUID Left 07/20/2015 23G PPV/EL/C3F8 12%/PSTTriescence 20mg for macula-off RD w/ serous choroidals OS.; Dr. Toro PARTIAL REMOVAL OF TOE 5th L REMOVAL OF TONSILS, UNDER AGE 12 REMOVE CATARACT, INSERT LENS PROSTH Bilateral 2012 Dr. Dowd REMOVE FOOT NERVE LESION (SHERIDAN) x4 REMOVE GALLBLADDER 1997 REPAIR OF HAMMERTOE, ONE TOE REPAIR OF HAMMERTOE, ONE TOE SHOULDER ARTHROSCOPY/SURGERY Right 01/14/2022 ARTHROSCOPY SHOULDER CAPSULORRHAPHY performed by Fernando Armstrong, DO at OR [facility] TOTAL ABD HYSTERECTOMY W/WO REMOVAL OF TUBE(S) Review of patient's allergies indicates: Allergen Reactions Glutaraldehyde [Glutaral] Rash Itchy, dry scabs Morphine Sulfate vomiting Questran [Cholestyramine] NAUSEA AND VOMITING Review of Systems Constitutional: Negative for appetite change, chills, fatigue, fever and unexpected weight change. Respiratory: Negative for cough, shortness of breath and wheezing. Cardiovascular: Negative for chest pain, palpitations and leg swelling. Gastrointestinal: Negative for abdominal pain, blood in stool, constipation, diarrhea, nausea and vomiting. Genitourinary: Negative for dysuria, frequency and hematuria. Skin: Positive for wound (right leg). Neurological: Negative for dizziness, syncope and headaches. Psychiatric/Behavioral: Negative for confusion, decreased concentration and sleep disturbance. OBJECTIVE: BP 118/62 | Pulse 64 | Temp 36 C (96.8 F) | Resp 18 | Ht 1.575 m (5' 2") | Wt 76.5 kg (168 lb 9.6 oz) | SpO2 98% | BMI 30.84 kg/m | BSA 1.83 m Physical Exam Vitals and nursing note reviewed. Constitutional: General: She is not in acute distress. Appearance: Normal appearance. She is not toxic-appearing. HENT: Head: Normocephalic and atraumatic. Cardiovascular: Rate and Rhythm: Normal rate and regular rhythm. Heart sounds: Normal heart sounds. No murmur heard. No gallop. Pulmonary: Effort: Pulmonary effort is normal. Breath sounds: Normal breath sounds. No wheezing, rhonchi or rales. Abdominal: General: Bowel sounds are normal. There is no distension. Palpations: Abdomen is soft. Tenderness: There is no abdominal tenderness. Musculoskeletal: Right lower leg: No edema. Left lower leg: No edema. Skin: Comments: Right leg stage 1 ulcer eith surrounding erythema, no drainage present Neurological: Mental Status: She is alert and oriented to person, place, and time. Mental status is at baseline. Psychiatric: Mood and Affect: Mood normal. Behavior: Behavior normal. PLAN AND ASSESSMENT: Ulcer of right lower extremity, limited to breakdown of skin (HCC) (Primary) - WOUND CARE REFERRAL OP Cellulitis of right lower extremity - Start Cephalexin 500 MG Oral Capsule (Keflex); Take 1 Capsule by mouth in the morning and 1 Capsule at noon and 1 Capsule before bedtime. Do all this for 10 days. Type 2 diabetes mellitus with diabetic peripheral angiopathy without gangrene, without long-term current use of insulin (HCC) Continue Metformin History of partial amputation of toe of left foot ([facility]) HTN, goal below 140/90 Continue Amlodipine, Lisinopril, and Carvedilol Dyslipidemia Continue Atorvastatin Gastroesophageal reflux disease without esophagitis Continue Omeprazole Anxiety, generalized Continue Trazodone Follow-up: Return in 1 week (on 04/05/2024), or if symptoms worsen or fail to improve. | Check-out note: Schedule with Wound Care Steven Waterman DO 2:14 PM 03/29/2024 documented in this encounter Nursing Notes * Monique Navarro LPN - 03/29/2024 1:47 PM EDT Hit lower right leg going up stairs two weeks ago. Fifty cent piece sized opening with some redness documented in this encounter Plan of Treatment Upcoming Encounters Date Type Department Care Team (Late st Contact Info) Description 04/23/2024 10:45 AM EDT Office Visit [facility] [address] [place] [address] Shekhar Gordillo MD [address] [place] [address] 04/30/2024 11:20 AM EDT Office Visit Nephrology, [facility] [address] [place] [address] Maryam Gordon MD [address] [place] [address] 05/02/2024 10:00 AM EDT Office Visit Orthopaedics [facility] [address] [place] [address] Thomas Barros PA-C [address] [place] [address] 06/04/2024 10:40 AM EST Office Visit Family Practice [address] [facility] [address] [place] [address] Steven Waterman, [address] [place] [address] 10/04/2024 1:00 PM EST Nurse Only Ancillary [address] [address] College, Nurse Annual Wellness Visit [address] [address] Scheduled Referrals Name Type Priority Associated Diagnoses Orde r Schedule WOUND CARE REFERRAL OP Referral Within 10 days (routine) Ulcer of right lower extremity, limited to breakdown of skin (HCC) Ordered: 03/29/2024 Health Maintenance Due Date Last Done Comments DXA Scan 03/30/2024 03/14/2018, 080 12/2013, 04/02/2010, Additional history exists Postponed from 03/14/2022 (Patient Declined After Education) Influenza Vaccine (FLU shot) (#1) 2024 04/04/2023, 04/07/2022, 04/07/2021, Additional history exists HbA1c 07/27/2024 01/26/2024, 08/31, 05/08/2023, Additional history exists DTap/Tdap Vaccines (2 - Td or Tdap) 09/01/2024 09/01/2014, 06/26/2007 Adult Wellness Visit 10/01/2024 10/02/2023, 09/30/19 Depression Screening 10/01/2024 10/02/2023 Albumin/Creatinine Ratio 01/25/2025 024, 03/27/2023, 06/17/2022, Additional history exists GFR 01/25/2025 01/26/2024, 09/29, 10/13/2023, Additional history exists Diabetic Foot Exam 03/04/2025 03/04/2024, 0 04/04/2023, 02/11/2022, Additional history exists Diabetic Eye Exam 03/20/2025 03/20/2024, , 03/15/2023, Additional history exists Pneumococcal Vaccine: 65+ Years Completed 10/16/2015, 09/01/2014, 11/15/2005 Zoster Vaccines Completed 01/19/2018, 10/2017, 06/30/2006 COVID-19 Vaccine Completed 01/29/2024, , [...] this encounter Medical Devices Implanted Type Area Bacteriologist Medical Device Identifier Shelf Expiration Date Model / Serial / Lot Biocomposite Knotless Corkscrew Suture [place] Implanted:Qty: 4 on 01/14/2022 by Fernando Armstrong, DO at OR [facility] Right: Shoulder [employer] 04/29/2023 [id number]-[id number] / / [id number] Suture [place], Biocomposite Swivelock With Closed Peek Eyelet Implanted:Qty: 1 on 01/14/2022 by Fernando Armstrong DO at OR [facility] Right: Shoulder 07/30/2025 AR-2324BCC TT / / [id number] Suture [place], Biocomposite Swivelock With Closed Peek Eyelet Implanted:Qty: 1 on 01/14/2022 by Fernando Armstrong DO at OR [facility] Right: Shoulder 07/30/2025 AR-2324BCC T / / [id number] Graft Arthroflex [id number] (28 Units) - [id number] - [id number] Implanted:Qty: 1 on 01/14/2022 by Fernando Armstrong DO at OR [facility] Right: Shoulder [employer] 07/15/2022 [id number] / [id number] / [id number] Biocomposite Knotless Swivelock [place] Implanted:Qty: 1 on 01/14/2022 by Fernando Armstrong DO at OR [facility] Right: Shoulder [employer] 10/28/2025 AR-[id number] C / / [id number] Biocomposite Knotless Swivel Lock [place] Implanted:Qty: 1 on 01/14/2022 by Fernando Armstrong DO at OR [facility] Right: Shoulder [employer] 10/28/2025 AR-[id number] C / / [id number] documented as of this encounter Visit Diagnoses Diagnosis Ulcer of right lower extremity, limited to breakdown of skin (HCC)- Primary Cellulitis of right lower extremity Cellulitis and abscess of leg, except foot Type 2 diabetes mellitus with diabetic peripheral angiopathy without gangrene, without long-term current use of insulin (HCC) History of partial amputation of toe of left foot (HCC) HTN, goal below 140/90 Unspecified essential hypertension Dyslipidemia Other and unspecified hyperlipidemia Gastroesophageal reflux disease without esophagitis Esophageal reflux Anxiety, generalized Generalized anxiety disorder documented in this encounter Care Teams Check Scaler Relationship Specialty Start Date End Date Steven Waterman DO [address] [place] [address] PCP - General Internal Medicine 01/12/24 documented as of this encounter
[2024-03-29] MEDS: carvediloL 3.125 MG TAB PO STA (22:41)
[2024-03-29] MEDS ORDERED: CLOBETASOL PROPIONATE 0.05% CREAM 15 GM TUBE TOP PRN (22:42)
[2024-03-29] MEDS ORDERED: BETAMETHASONE VAL 0.1% CR 15 GM TOP PRN (22:50)
[2024-03-29] MEDS: GADOBUTROL 65ML VIAL IV ONE (23:13)
--- NOTE | 2024-03-29 23:37 | History & Physical Report ---
Date of Service March 29, 2024 Assessment & Plan (1) Stroke-like symptom: Plan: 83-year-old female with past medical history significant for type 2 diabetes, hyperlipidemia, hypertension, purpura Senilis, GERD, nontraumatic complete tear of left rotator cuff, history of partial amputation of toe of left foot, generalized anxiety comes in because of strokelike symptoms. Around 5 PM patient was having some trouble speaking. Words were coming but with garbled and they were not in order. And on the way to hospital she was also confused. The episode lasted for about half hour and resolved. TNK was not given as symptoms improved. Currently back to baseline. Patient had wound in right hickey region happened a week ago when she was climbing the steps and injured. She went to PCP today and was prescribed Keflex. Her speech symptoms started coming from PCPs office. Currently having headache and ask for pain medication. Vision is okay. No runny nose. No sore throat. No cough. No difficulty swallowing. Currently afebrile. No chest pain or shortness of breath. No nausea. No abdominal pain. Strokelike symptom Seems to had transient expressive aphasia. CT head okay Brain MRI okay CTA head and neck showing moderate bilateral ICA stenosis 60 to 70% Aspirin given Patient on statin Will follow lipid profile and HbA1c levels Neurochecks Speech and PT OT evaluation Neurology consult in a.m. Vascular surgery consult in a.m. Telemetry Close monitor Type 2 diabetes Hold metformin Sliding scale Will follow HbA1c levels Monitor sugars hyponatremia Sodium 125 Will check urine osmolality, serum osmolality and urine sodium levels Getting IV fluids Will monitor for slow correction Nephrology consult in a.m. for further recommendations History of hypertension Continue home medications of amlodipine, Coreg and lisinopril Will monitor GERD On omeprazole Right hickey wound Started on Keflex today by PCP Needs follow-up DVT prophylaxis SCDs for now Disposition Telemetry Full code. History of Present Illness Chief Complaint: Strokelike symptoms Primary Care Provider: Steven Waterman DO 83-year-old female with past medical history significant for type 2 diabetes, hyperlipidemia, hypertension, purpura Senilis, GERD, nontraumatic complete tear of left rotator cuff, history of partial amputation of toe of left foot, generalized anxiety comes in because of strokelike symptoms. Around 5 PM patient was having some trouble speaking. Words were coming but with garbled an d they were not in order. And on the way to hospital she was also confused. The episode lasted for about half hour and resolved. TNK was not given as symptoms improved. Currently back to baseline. Patient had wound in right hickey region happened a week ago when she was climbing the steps and injured. She went to PCP today and was prescribed Keflex. Her speech symptoms started coming from PCPs office. Currently having headache and ask for pain medication. Vision is okay. No runny nose. No sore throat. No cough. No difficulty swallowing. Currently afebrile. No chest pain or shortness of breath. No nausea. No abdominal pain. Past medical history. As mentioned above Past surgical history. Right shoulder arthroscopy. Bunion correction. Carpal tunnel surgery. Colonoscopy. Dental surgery. EGD with biopsy. Bowel surgery for bowel obstruction. Bilateral knee arthroscopy. Right laser trabeculoplasty. Left partial removal of eye fluid. Left fifth toe partial removal. Tonsillectomy. Bilateral cataracts. Cholecystectomy. Repair of hammertoe. Total abdominal hysterectomy with removal of tubes. Social history. . No smoking. Alcohol use 2/day per epic. No drug use. Family history. Mother had arthritis. Rheumatic fever. Stroke. Father had CHF. Brother has diabetes. Allergies Allergy/AdvReac Type Severity Reaction Status Date / Time Bleach (Sodium Hypochlorite) AdvReac Severe hives, Verified 03/29/24 22:18 itching, rash morphine AdvReac Mild SEVERE Verified 03/29/24 22:18 NAUSEA AND VOMITING Home Medications Medication Instructions Recorded Confirmed Type acetaminophen 500 mg tablet 500 mg PO Q6H PRN Pain 03/29/24 03/29/24 History (Tylenol Extra Strength) acyclovir 400 mg tablet 400 mg PO BID PRN flare up 03/29/24 03/29/24 History amlodipine 2.5 mg tablet 2.5 mg PO DAILY 03/29/24 03/29/24 History atorvastatin 20 mg tablet 20 mg PO DAILY 03/29/24 03/29/24 History carvedilol 6.25 mg tablet 6.25 mg PO BID 03/29/24 03/29/24 History cephalexin 500 mg capsule 500 mg PO TID 03/29/24 03/29/24 History clobetasol 0.05 % topical cream 1 applic topical BID PRN flare 03/29/24 03/29/24 History desonide 0.05 % topical cream 1 applic topical BID PRN flare up 03/29/24 03/29/24 History ibuprofen 200 mg tablet 200 mg PO Q6H PRN Pain 03/29/24 03/29/24 History lisinopril 40 mg tablet 40 mg PO DAILY 03/29/24 03/29/24 History magnesium oxide 500 mg PO DAILY 03/29/24 03/29/24 History metformin 500 mg tablet,extended 500 mg PO QAM 03/29/24 03/29/24 History release 24 hr omeprazole 20 mg capsule,delayed 20 mg PO QAM 03/29/24 03/29/24 History release peg 400-propylene glycol (PF) 0.4 1 drp ophthalmic (eye) BID 03/29/24 03/29/24 History %-0.3 % eye drops in a dropperette (Systane (PF)) trazodone 100 mg tablet 100 mg PO HS 03/29/24 03/29/24 History Past Med/Surg History Problem List (Updated 03/30/24 @ 00:59 by Cordell Topete DO) Hypertensive urgency (Acute) Acute hyponatremia (Acute) Anemia (Acute) AMS (altered mental status) (Acute) Expressive aphasia (Acute) Stroke-like symptom Hip bursitis, left Fracture of metatarsal of right foot, closed Diabetic ulcer of toe (Acute) DM2 (diabetes mellitus, type 2) (Chronic) HTN (hypertension) (Chronic) HLD (hyperlipidemia) (Chronic) Hx of total knee arthroplasty (Chronic) Hx of total hysterectomy (Chronic) H/O toe surgery (Chronic) S/P cholecystectomy (Chronic) History of carpal tunnel surgery (Chronic) History of esophagogastroduodenoscopy (EGD) (Chronic) H/O colonoscopy (Chronic) "diverticulosis 2013" History of cataract surgery (Chronic) Small bowel obstruction (Acute) Medical History Peripheral neuropathy Amputated toe Social History Smoking Status: Never smoker Hx Alcohol Use: Yes Alcohol type: wine Alcohol type Comment: daily w/dinner Alcohol Intake Frequency: 4 or More x per/Week Hx Substance Use: No Preferred Language: Ukrainian Communication Ability: Effective Visual Impairment: Limited Hearing Ability: Normal Business Development 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 Head- atraumatic Eyes- PERRL. ENT- oropharynx clear Neck- supple, no JVD. Lungs- clear to auscultation no wheezing or crackles Heart- regular rhythm; no murmur, no gallop. Abdomen- normal bowel sounds, soft, nontender, no distension Extremities-mild pretibial edema, 2 x2 cm wound seen on medial aspect of right hickey Neuro- alert, oriented ; PERRL, no facial palsy; no dysarthria; motor 5/5 bilaterally; no pronator drift, sensations intact Results & Data Results & Data Vital Signs (Past 12 Hours) Vital Signs Temp Pulse Pulse Resp BP BP Pulse Ox 03/29/24 22:00 66 18 157/120 H 99 03/29/24 21:40 88 190/135 H 03/29/24 20:30 73 18 148/101 H 97 03/29/24 20:09 73 18 182/74 H 98 03/29/24 19:37 158/83 H 03/29/24 19:31 73 17 98/74 L 98 03/29/24 19:27 81 165/83 H 03/29/24 19:22 81 03/29/24 19:03 207/102 H 03/29/24 18:56 36.6 C 79 97 O2 Del Method 03/29/24 22:00 Room Air 03/29/24 21:40 03/29/24 20:30 Room Air 03/29/24 20:09 Room Air 03/29/24 19:37 03/29/24 19:31 Room Air 03/29/24 19:27 03/29/24 19:22 03/29/24 19:03 03/29/24 18:56 Room Air Diagnostic Findings Laboratory Results WBC 5.75 K/ul (4.8-10.8) 03/29/24 19:20 RBC 3.02 M/uL (4.20-5.40) L 03/29/24 19:20 Hgb 10.8 g/dl (12.0-16.0) L 03/29/24 19:20 POC Hgb 10.5 g/dl (12.0-16.0) L 03/29/24 19:22 Hct 31.0 % (37.0-47.0) L 03/29/24 19:20 POC Hct 31 % (37-47) L 03/29/24 19:22 MCV 102.6 fL (80.0-100.0) H 03/29/24 19:20 MCH 35.8 pg (25.0-34.0) H 03/29/24 19:20 MCHC 34.8 g/dL (32.0-36.0) 03/29/24 19:20 RDW Std Deviation 48.2 fL (36.4-46.3) H 03/29/24 19:20 RDW Coeff of Jose G 12.8 % (11.5-14.5) 03/29/24 19:20 Plt Count 196 K/uL (130-400) 03/29/24 19:20 MPV 8.4 fL (9.4-12.4) L 03/29/24 19:20 Immature Gran % (Auto) 0.3 % 03/29/24 19:20 Neut % (Auto) 68.0 % 03/29/24 19:20 Lymph % (Auto) 18.8 % 03/29/24 19:20 Dickens % (Auto) 11.0 % 03/29/24 19:20 Eos % (Auto) 1.7 % 03/29/24 19:20 Baso % (Auto) 0.2 % 03/29/24 19:20 Neut # (Auto) 3.91 K/uL (1.40-6.50) 03/29/24 19:20 Lymph # (Auto) 1.08 K/uL (1.20-3.40) L 03/29/24 19:20 Dickens # (Auto) 0.63 K/uL (0.11-0.59) H 03/29/24 19:20 Eos # (Auto) 0.10 K/uL (0.00-0.50) 03/29/24 19:20 Baso # (Auto) 0.01 K/uL (0.00-0.20) 03/29/24 19:20 Immature Gran # (Auto) 0.02 K/uL (0.01-0.20) 03/29/24 19:20 PT 11.0 Seconds (9.0-12.0) 03/29/24 19:20 INR 1.0 (0.9-1.1) 03/29/24 19:20 APTT 30 Seconds (21-31) 03/29/24 19:20 PTT Ratio 1.1 03/29/24 19:20 POC Sodium 126 mmol/L (135-144) L 03/29/24 19:22 Sodium 125 mmol/L (136-145) L 03/29/24 19:20 POC Potassium 3.7 mmol/L (3.3-5.0) 03/29/24 19:22 Potassium 3.6 mmol/L (3.5-5.1) 03/29/24 19:20 POC Chloride 90 mmol/L (101-112) L 03/29/24 19:22 Chloride 93 mmol/L (98-107) L 03/29/24 19:20 Carbon Dioxide 25 mmol/L (21-32) 03/29/24 19:20 POC Total CO2 24 mmol/L (24-31) 03/29/24 19:22 Anion Gap 7 (3-11) 03/29/24 19:20 POC Anion Gap 17.0 mmol/L (16-25) 03/29/24 19:22 POC BUN 7 mg/dl (7-18) 03/29/24 19:22 BUN 8 mg/dl (6-23) 03/29/24 19:20 Creatinine 0.80 mg/dl (0.6-1.2) 03/29/24 19:20 POC Creatinine 0.8 mg/dl (0.6-1.3) 03/29/24 19:22 Est Cr Clr Drug Dosing 52.0 ml/min 03/29/24 19:20 Est GFR ( Amer) 79.6 ml/min 03/29/24 19:20 Est GFR (Non-Af Amer) 68.7 ml/min 03/29/24 19:20 BUN/Creatinine Ratio 10.0 (10-20) 03/29/24 19:20 Glucose 107 mg/dl (70-99(Fasting)) H 03/29/24 19:20 POC Glucose 108 mg/dl (70-99) H 03/29/24 19:16 POC Glucose (other) 103 mg/dl (70-99) H 03/29/24 19:22 Calcium 8.5 mg/dl (8.6-10.3) L 03/29/24 19:20 POC Ioniz Calcium Carmela 1.17 mmol/l (1.12-1.32) 03/29/24 19:22 Magnesium 1.2 mg/dl (1.7-2.4) L 03/29/24 19:20 Total Bilirubin 0.7 mg/dl (0.2-1.0) 03/29/24 19:20 AST 20 U/L (13-39) 03/29/24 19:20 ALT 13 U/L (7-52) 03/29/24 19:20 Alkaline Phosphatase 68 U/L (34-104) 03/29/24 19:20 Troponin I High Sens 8.1 pg/ml (0-14) 03/29/24 19:20 Total Protein 5.9 gm/dl (6.0-8.3) L 03/29/24 19:20 Albumin 3.9 gm/dl (3.4-5.0) 03/29/24 19:20 Globulin 2.0 gm/dl (2.5-4.0) L 03/29/24 19:20 Albumin/Globulin Ratio 2.0 (0.9-2) 03/29/24 19:[address] 03/29/24 19:05 CR Exam(s): CT HEAD Without Contrast EXAM: CT Head Without Intravenous Contrast CLINICAL HISTORY: Reason for exam: neuro deficit, acute stroke suspected. TECHNIQUE: Axial computed tomography images of the head/brain without intravenous contrast. CTDI is 45.89 mGy and DLP is 677.48 mGy-cm. Automated exposure control was utilized for the study. A dose lowering technique was utilized adhering to the principles of ALARA. Mild motion artifact. COMPARISON: Head CT 02/04/24. FINDINGS: Brain: No mass effect or acute infarct. No acute hemorrhage. Mild to moderate atrophy and chronic white matter disease, stable. Ventricles: No hydrocephalus or midline shift. Bones/joints: No skull fracture. Soft tissues: No scalp hematoma. Visualized Sinuses: Clear. Mastoid air cells: No mastoid effusion. IMPRESSION: 1. Stable age-related findings. 2. No acute infarct, bleed, or acute intracranial abnormality. Communications: Call Doctor Stroke Electronically signed by: Ilana Young M.D. 03/29/24 19:34 PM Head CTA 03/29/24 19:05 CR Exam(s): CTA HEAD With Contrast IV Amt: OPTIRAY 320 118ML EXAM: CT Angiography Head With Intravenous Contrast CLINICAL HISTORY: Reason for exam: neuro deficit, acute stroke suspected. TECHNIQUE: Axial computed tomographic angiography images of the head with intravenous contrast. CTDI is 11.47 mGy and DLP is 398.9 mGy-cm. Automated exposure control was utilized for the study. A dose lowering technique was utilized adhering to the principles of ALARA. MIP reconstructed images were created and reviewed. Venous contamination and mild motion artifact. CONTRAST: Patient received OPTIRAY 320 118ML of IV contrast COMPARISON: Head CT done earlier. FINDINGS: Right internal carotid artery: Patent. Right anterior cerebral artery: Patent. Right middle cerebral artery: Patent. Right posterior cerebral artery: Patent. Right vertebral artery: Nondominant, terminates as a PICA. Left internal carotid artery: Patent. Left anterior cerebral artery: Patent. Left middle cerebral artery: Patent. Left posterior cerebral artery: Patent. Left vertebral artery: Moderate atherosclerotic calcification with approximately moderate, 50-60% stenosis. Basilar artery: Patent. Other: Bilateral cavernous ICA atherosclerosis, with approximately moderate, 50-60% stenosis. Patent dural venous sinuses. IMPRESSION: 1. Intracranial atherosclerosis and approximately, 50-60% stenosis. 2. No aneurysm or large vessel occlusion. Communications: Call Doctor Stroke Electronically signed by: Ilana Young M.D. 03/29/24 19:34 PM Neck CTA 03/29/24 19:05 CR Exam(s): CTA NECK With Contrast IV Amt: OPTIRAY 320 118ML EXAM: CT Angiography Neck With Intravenous Contrast CLINICAL HISTORY: Reason for exam: neuro deficit, acute stroke suspected. TECHNIQUE: Routine carotid CT angiography protocol was performed with intravenous contrast. NASCET criteria using the distal ICAs for comparison were used for evaluation of stenoses. CTDI is 11.47 mGy and DLP is 398.9 mGy-cm. Automated exposure control was utilized for the study. A dose lowering technique was utilized adhering to the principles of ALARA. MIP reconstructed images were created and reviewed. Mild motion and dental metal artifact. CONTRAST: Patient received OPTIRAY 320 118ML of IV contrast COMPARISON: None. FINDINGS: Right common carotid artery: Patent. Right internal carotid artery: Dense atherosclerotic calcification, with moderate, 60-70% stenosis.. Right vertebral artery: Patent. Left common carotid artery: Patent. Left internal carotid artery: Dense/complex atherosclerotic plaque, limited detail due to motion artifact. Moderate, 60-70% stenosis. Left vertebral artery: Patent. Left dominant system. Other: IMPRESSION: 1. Dense atherosclerotic calcification, with moderate bilateral ICA stenosis, 60-70%. 2. No other dissection/occlusion/significant stenosis. CAROTID STENOSIS REFERENCE USING NASCET CRITERIA: % ICA stenosis = (1 - narrowest ICA diameter/diameter of distal cervical ICA) x 100. Mild - <50% stenosis. Moderate - 50-69% stenosis. Severe - 70-94% stenosis. Near occlusion - 95-99% stenosis. Occluded - 100% stenosis. Communications: Call Doctor Stroke Electronically signed by: Ilana Young M.D. 03/29/24 19:34 PM Brain MRI 03/29/24 22:22 Exam(s): MRI HEAD W/WO Contrast IV Amt: 7.5mL Gadavist given IV EXAM: MR Head Without and With Intravenous Contrast CLINICAL HISTORY: Reason for exam: stroke like symptoms. TECHNIQUE: Magnetic resonance images of the head/brain without and with intravenous contrast in multiple planes. Moderate motion artifact. CONTRAST: Patient received 7.5mL Gadavist given IV of IV contrast COMPARISON: CT/CTA head earlier. FINDINGS: Brain: No mass effect or acute infarct. No acute hemorrhage. Mild atrophy and chronic white matter disease. No abnormal enhancement or mass. Ventricles: No hydrocephalus or midline shift. Bones/joints: No acute finding. Soft tissues: No scalp hematoma. Visualized Sinuses: Clear. Mastoid air cells: No mastoid effusion. IMPRESSION: 1. Mild age-related findings. 2. No abnormal enhancement, acute infarct, bleed, or acute intracranial abnormality. Electronically signed by: Ilana Young M.D. 03/29/24 23:43 PM ECG Additional Comments: ECG. Normal sinus rhythm rate of 81. No significant change was found. Code Status & VTE Plan VTE Prophylaxis Plan VTE Prophylaxis will be ordered: Yes
--- NOTE | 2024-03-29 23:44 | Magnetic Resonance Report ---
Exam(s): MRI HEAD W/WO Contrast IV Amt: 7.5mL Gadavist given IV EXAM: MR Head Without and With Intravenous Contrast CLINICAL HISTORY: Reason for exam: stroke like symptoms. TECHNIQUE: Magnetic resonance images of the head/brain without and with intravenous contrast in multiple planes. Moderate motion artifact. CONTRAST: Patient received 7.5mL Gadavist given IV of IV contrast COMPARISON: CT/CTA head earlier. FINDINGS: Brain: No mass effect or acute infarct. No acute hemorrhage. Mild atrophy and chronic white matter disease. No abnormal enhancement or mass. Ventricles: No hydrocephalus or midline shift. Bones/joints: No acute finding. Soft tissues: No scalp hematoma. Visualized Sinuses: Clear. Mastoid air cells: No mastoid effusion. IMPRESSION: 1. Mild age-related findings. 2. No abnormal enhancement, acute infarct, bleed, or acute intracranial abnormality. Electronically signed by: Ilana Young M.D. 03/29/24 23:43 PM
[2024-03-29] MEDS: INSULIN ASPART PER UNIT CHARGE SC SCH (23:48)
[2024-03-29] MEDS: cephALEXin 500 MG CAP PO SCH (23:49)
[2024-03-29] MEDS: SODIUM CHLORIDE 0.9% 1,000 ML IV SCH (23:50)
[2024-03-30 05:18] LABS: Basophils # (auto) 0.01 K/uL (0.00-0.20); Basophils % (auto) 0.2 %; Eosinophils # (auto) 0.06 K/uL (0.00-0.50); Eosinophils % (auto) 1.2 %; Hematocrit (blood only) 28.5 % (37.0-47.0); Hemoglobin 10.2 g/dl (12.0-16.0); Immature Granulocytes # (auto) 0.01 K/uL (0.01-0.20); Immature Granulocytes % (auto) 0.2 %; Lymphocytes % (auto) 17.5 %; Mean Corpuscular Hemoglobin 35.8 pg (25.0-34.0); Mean Corpuscular Hgb Conc 35.8 g/dL (32.0-36.0); Mean Platelet Volume 8.9 fL (9.4-12.4); Monocytes # (auto) 0.44 K/uL (0.11-0.59); Monocytes % (auto) 8.6 %; Neutrophils # (auto) 3.71 K/uL (1.40-6.50); Neutrophils % (auto) 72.3 %; Platelet Count 217 K/uL (130-400); RDW Coefficient of Variation 12.6 % (11.5-14.5); RDW Standard Deviation 46.1 fL (36.4-46.3); Red Blood Count 2.85 M/uL (4.20-5.40); White Blood Count 5.13 K/ul (4.8-10.8)
[2024-03-30 05:31] LABS: BUN Creatinine Ratio 9.2 (10-20); Calcium 8.6 mg/dl (8.6-10.3); Chol HDL Ratio 1.7 (0-5); Creatinine Clr Calc Pharmacy 54.7 ml/min; Est GFR (African American) 84.7 ml/min; Est GFR (Non-African American) 73.1 ml/min; Potassium 3.5 mmol/L (3.5-5.1)
[2024-03-30 07:00] LABS: Estimated Average Glucose 143 mg/dl; Hemoglobin A1C 6.6 % (4.5-5.6)
--- NOTE | 2024-03-30 07:39 | Electrocardiogram Report ---
Test Reason : Blood Pressure : */* mmHG Vent. Rate : 81 BPM Atrial Rate : 81 BPM P-R Int : 190 ms QRS Dur : 90 ms QT Int : 394 ms P-R-T Axes : 58 -22 53 degrees QTcB Int : 457 ms Normal sinus rhythm Poor R wave progression, consider anterior OH vs. lead placement vs. LVH When compared with ECG of 11-Mar-2016 13:48, No significant change was found Confirmed by Dany Cadena ([id number]) on 03/30/2024 7:39:06 AM Referred By: REFERRED SELF Confirmed By: Dany Cadena
[2024-03-30] MEDS: PANTOprazole 40 MG TAB PO SCH (08:14)
[2024-03-30] MEDS: amLODIPine BESYLATE 5 MG TAB PO SCH (08:14)
[2024-03-30] MEDS: lisinopril 40 MG TAB PO SCH (08:14)
[2024-03-30] MEDS: ATORVASTATIN 20 MG TAB PO SCH (08:14)
[2024-03-30] MEDS: carvediloL 6.25 MG TAB PO SCH (08:14)
[2024-03-30] MEDS: MAGNESIUM OXIDE 400 MG TAB PO SCH (08:14)
[2024-03-30] MEDS: ARTIFICIAL TEARS OP SCH (08:15)
--- NOTE | 2024-03-30 08:57 | XRay Report ---
XR chest 1V portable CLINICAL HISTORY: neuro deficit, acute stroke suspected COMPARISON STUDY: Chest radiograph March 18, 2016. FINDINGS: Moderate elevation of the right hemidiaphragm has increased since prior chest radiograph. T here is no pneumothorax or pleural effusion. There is no consolidation or evidence for pulmonary salo a. Cardiomediastinal silhouette is unremarkable. IMPRESSION: 1. No acute cardiopulmonary findings. 2. Moderate elevation of the right hemidiaphragm, increased since chest radiograph of March 18, 2016 . ACT 112: Negative or not required by law. Electronically signed by: Kemal Zamarripa M.D. 03/30/2024 8:56 AM
[2024-03-30 10:23] LABS: BUN Creatinine Ratio 7.8 (10-20); Calcium 8.8 mg/dl (8.6-10.3); Creatinine Clr Calc Pharmacy 54.1 ml/min; Est GFR (African American) 83.3 ml/min; Est GFR (Non-African American) 71.9 ml/min; Potassium 3.7 mmol/L (3.5-5.1)
[2024-03-30] MEDS: INSULIN ASPART PER UNIT CHARGE SC SCH (10:29)
[2024-03-30 13:29] LABS: Magnesium 1.9 mg/dl (1.7-2.4)
--- NOTE | 2024-03-30 13:29 | Nephrology Consultation ---
Date of Consultation March 30, 2024 Assessment & Plan (1) Acute hyponatremia: Hyponatremia. 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 -No more IV Fluids - FR to 1.8 until 7 pm today then 1.5 lit subsequently. - She will likley over correct as her sodium is already 130, Stat on D5W at 100 mls and hr and adjust rate accordingly. - q6 sodium. (2) Hypertensive urgency: Permissive --HTN, on target (3) Stroke-like symptom: History of Present Illness Reason for Consultation: Hyponatremia Attending Physician: Graciela Ledezma MD History of Present Illness 83-year-old female a/w stroke like symptoms,CT/MRI head was normal W/ CTA showing moderate ICA Stenosis of 60-70%.She has expressive aphasia w/ confusion initially which has resolved.Asymptomatic on exam when examined today. ER labs were significant for NA of 125 (19.20 on 03/29) which has improved to 130 at 9.48 am (03/30) after normal saline. She is passing urine and appears comfortable, BP elevated- permissive 2/ likley stroke. U osm of 225 w/ POsm 271 and Desi 58 She is on Trazadone and Ibrufen. Allergies Allergy/AdvReac Type Severity Reaction Status Date / Time Bleach (Sodium Hypochlorite) AdvReac Severe hives, Verified 03/29/24 22:18 itching, rash morphine AdvReac Mild SEVERE Verified 03/29/24 22:18 NAUSEA AND VOMITING Home Medications Medication Instructions Recorded Confirmed Type acetaminophen 500 mg tablet 500 mg PO Q6H PRN Pain 03/29/24 03/29/24 History (Tylenol Extra Strength) acyclovir 400 mg tablet 400 mg PO BID PRN flare up 03/29/24 03/29/24 History amlodipine 2.5 mg tablet 2.5 mg PO DAILY 03/29/24 03/29/24 History atorvastatin 20 mg tablet 20 mg PO DAILY 03/29/24 03/29/24 History carvedilol 6.25 mg tablet 6.25 mg PO BID 03/29/24 03/29/24 History cephalexin 500 mg capsule 500 mg PO TID 03/29/24 03/29/24 History clobetasol 0.05 % topical cream 1 applic topical BID PRN flare 03/29/24 03/29/24 History desonide 0.05 % topical cream 1 applic topical BID PRN flare up 03/29/24 03/29/24 History ibuprofen 200 mg tablet 200 mg PO Q6H PRN Pain 03/29/24 03/29/24 History lisinopril 40 mg tablet 40 mg PO DAILY 03/29/24 03/29/24 History magnesium oxide 500 mg PO DAILY 03/29/24 03/29/24 History metformin 500 mg tablet,extended 500 mg PO QAM 03/29/24 03/29/24 History release 24 hr omeprazole 20 mg capsule,delayed 20 mg PO QAM 03/29/24 03/29/24 History release peg 400-propylene glycol (PF) 0.4 1 drp ophthalmic (eye) BID 03/29/24 03/29/24 History %-0.3 % eye drops in a dropperette (Systane (PF)) trazodone 100 mg tablet 100 mg PO HS 03/29/24 03/29/24 History Patient History Medical History Peripheral neuropathy Amputated toe Social History Smoking Status: Never smoker Hx Alcohol Use: Yes Alcohol type: wine Alcohol type Comment: daily w/dinner Alcohol Intake Frequency: 4 or More x per/Week Hx Substance Use: No Preferred Language: Scottish Communication Ability: Effective Visual Impairment: Limited Hearing Ability: Normal Waste Oil Pumper Required: No Beliefs That Will Affect Care: None marital status: Current Living Situation: Spouse current occupational status: retired Feels Safe at Home: Yes Safety Concerns: Feels Safe At This Time Diet: regular caffeine: Yes during the past year weight has: remained stable Gender Identity: Female Assistive Devices: Cane, Glasses and Walker Physical Exam 2 Physical Exam: General- Comfortable Head- atraumatic Eyes- PERRL. ENT- oropharynx clear Neck- supple, no JVD. Lungs- clear to auscultation no wheezing or crackles Heart- regular rhythm; no murmur, no gallop. Abdomen- normal bowel sounds, soft, nontender Extremities-mild pretibial edema, 2 x2 cm wound seen on medial aspect of right hickey Neuro- alert, oriented ; PERRL, no facial palsy; Results & Data Vital Signs (Past 12 Hours) Vital Signs Pulse Pulse Resp BP Pulse Ox O2 Del Method 03/30/24 08:13 66 19 157/72 H 95 Room Air 03/30/24 07:01 61 03/30/24 04:00 63 18 103/55 L 98 Room Air 03/30/24 02:55 62 18 137/65 96 Room Air 03/30/24 01:48 66 03/30/24 01:34 69 18 161/79 H 96 Room Air Laboratory Results 03/30/24 04:55 03/30/24 09:48
[2024-03-30] MEDS: cephALEXin 500 MG CAP PO SCH (14:02)
[2024-03-30] MEDS: ASPIRIN 81 MG ECTAB PO SCH (14:02)
--- NOTE | 2024-03-30 14:24 | Hospitalist Progress Note ---
Date of Service March 30, 2024 Assessment & Plan (1) Stroke-like symptom: Plan: 83-year-old female with past medical history significant for type 2 diabetes, hyperlipidemia, hypertension, purpura Senilis, GERD, nontraumatic complete tear of left rotator cuff, history of partial amputation of toe of left foot, generalized anxiety comes in because of strokelike symptoms. Around 5 PM patient was having some trouble speaking. Words were coming but with garbled and they were not in order. And on the way to hospital she was also confused. The episode lasted for about half hour and resolved. TNK was not given as symptoms improved. Currently back to baseline. Patient had wound in right hickey region happened a week ago when she was climbing the steps and injured. She went to PCP today and was prescribed Keflex. Her speech symptoms started coming from PCPs office. Currently having headache and ask for pain medication. Vision is okay. No runny nose. No sore throat. No cough. No difficulty swallowing. Currently afebrile. No chest pain or shortness of breath. No nausea. No abdominal pain. Strokelike symptom Seems to had transient expressive aphasia. CT head did not show any acute infarct or bleeding Brain MRI did not show acute abnormalities CTA head and neck showing moderate bilateral ICA stenosis 60 to 70% Likely TIA Start ASA 81mg daily Continue atorvastatin, increased to 40mg daily PT/OT/[employer] eval noted HbA1c 6.6 Awaiting TTE Patient will need to follow up with Vascular surgery Discussed with Neuro who noted that TIA is a possibility and other possibilities may be related to BP changes, undiagnosed cognitive impairment, Delirium episode Recommends continuing tele, get TTE, DAPT for 3 weeks, outpatient vascular follow up Type 2 diabetes Hold metformin Sliding scale Hyponatremia Sodium 125 on admission last night Reviewed sOsm, uOsm, Jenelle with [employer] Findings suggestive of SIADH Na is correcting rapidly (5 units in about 12h) Get BMP and start D5W at 100/h and monitor Will need to be on FR of 1.5L on dc History of hypertension Continue home medications of amlodipine, Coreg and lisinopril Will monitor GERD On omeprazole Right hickey wound Started on Keflex today by PCP Needs follow-up DVT prophylaxis SCDs for now Full code. I spent a total of 55 minutes coordinating, documenting and providing care for this patient excluding time spent in performance of separately billed services Admission and Anticipated Discharge Date Admission Date: March 29, 2024 Subjective Patient seen and examined Reports difficulty finding words had resolved since last evening Denied any difficulty swallowing, focal deficits in power or sensation. Denied any other complaints on ROS Physical Exam Constitutional: + well hydrated; no acute distress Eyes: PERRL, conjunctivae normal, anicteric sclerae ENMT: external ear and nose normal, oropharynx normal Respiratory: normal respiratory effort, lungs clear to auscultation Cardiovascular: Rate/Rhythm: regular rate and regular rhythm S1 S2 Gastrointestinal (Abdomen): normal bowel sounds, soft, nontender, no hepatosplenomegaly Musculoskeletal: Right leg wound healing Neurologic: PERRL, EOMI, accommodation nl, no face palsy, no dysarthria No focal neurological deficits No dysdiadochokinesia Psychiatric: A+Ox3, euthymic affect Results & Data Results & Data Vital Signs (Past 12 Hours) Vital Signs Pulse Pulse Resp BP Pulse Ox O2 Del Method 03/30/24 08:13 66 19 157/72 H 95 Room Air 03/30/24 07:01 61 03/30/24 04:00 63 18 103/55 L 98 Room Air 03/30/24 02:55 62 18 137/65 96 Room Air Laboratory Results Abnormal lab results 03/29/24 03/29/24 03/29/24 Range/Units 19:16 19:20 19:22 RBC 3.02 L (4.20-5.40) M/uL Hgb 10.8 L (12.0-16.0) g/dl POC Hgb 10.5 L (12.0-16.0) g/dl Hct 31.0 L (37.0-47.0) % POC Hct 31 L (37-47) % MCV 102.6 H (80.0-100.0) fL MCH 35.8 H (25.0-34.0) pg RDW Std Deviation 48.2 H (36.4-46.3) fL MPV 8.4 L (9.4-12.4) fL Lymph # (Auto) 1.08 L (1.20-3.40) K/uL [place] # (Auto) 0.63 H (0.11-0.59) K/uL POC Sodium 126 L (135-144) mmol/L Sodium 125 L (136-145) mmol/L POC Chloride 90 L (101-112) mmol/L Chloride 93 L (98-107) mmol/L BUN/Creatinine Ratio (10-20) Glucose 107 H (70-99(Fasting)) mg/dl POC Glucose 108 H (70-99) mg/dl POC Glucose (other) 103 H (70-99) mg/dl Hemoglobin A1c (4.5-5.6) % Osmolality (280-300) mOsm/kg Calcium 8.5 L (8.6-10.3) mg/dl Magnesium 1.2 L (1.7-2.4) mg/dl Total Protein 5.9 L (6.0-8.3) gm/dl Globulin 2.0 L (2.5-4.0) gm/dl Urine Osmolality (500-800) mOsm/kg 03/29/24 03/30/24 03/30/24 Range/Units 23:47 04:54 04:55 RBC 2.85 L (4.20-5.40) M/uL Hgb 10.2 L (12.0-16.0) g/dl POC Hgb (12.0-16.0) g/dl Hct 28.5 L (37.0-47.0) % POC Hct (37-47) % MCV (80.0-100.0) fL MCH 35.8 H (25.0-34.0) pg RDW Std Deviation (36.4-46.3) fL MPV 8.9 L (9.4-12.4) fL Lymph # (Auto) 0.90 L (1.20-3.40) K/uL [place] # (Auto) (0.11-0.59) K/uL POC Sodium (135-144) mmol/L Sodium 128 L (136-145) mmol/L POC Chloride (101-112) mmol/L Chloride 96 L (98-107) mmol/L BUN/Creatinine Ratio 9.2 L (10-20) Glucose 106 H (70-99(Fasting)) mg/dl POC Glucose 122 H (70-99) mg/dl POC Glucose (other) (70-99) mg/dl Hemoglobin A1c 6.6 H (4.5-5.6) % Osmolality 271 L (280-300) mOsm/kg Calcium (8.6-10.3) mg/dl Magnesium (1.7-2.4) mg/dl Total Protein (6.0-8.3) gm/dl Globulin (2.5-4.0) gm/dl Urine Osmolality (500-800) mOsm/kg 03/30/24 03/30/24 03/30/24 Range/Units 07:35 09:48 10:03 RBC (4.20-5.40) M/uL Hgb (12.0-16.0) g/dl POC Hgb (12.0-16.0) g/dl Hct (37.0-47.0) % POC Hct (37-47) % MCV (80.0-100.0) fL MCH (25.0-34.0) pg RDW Std Deviation (36.4-46.3) fL MPV (9.4-12.4) fL Lymph # (Auto) (1.20-3.40) K/uL [place] # (Auto) (0.11-0.59) K/uL POC Sodium (135-144) mmol/L Sodium 130 L (136-145) mmol/L POC Chloride (101-112) mmol/L Chloride 96 L (98-107) mmol/L BUN/Creatinine Ratio 7.8 L (10-20) Glucose 111 H (70-99(Fasting)) mg/dl POC Glucose 141 H (70-99) mg/dl POC Glucose (other) (70-99) mg/dl Hemoglobin A1c (4.5-5.6) % Osmolality (280-300) mOsm/kg Calcium (8.6-10.3) mg/dl Magnesium (1.7-2.4) mg/dl Total Protein (6.0-8.3) gm/dl Globulin (2.5-4.0) gm/dl Urine Osmolality 225 L (500-800) mOsm/kg 03/30/24 Range/Units 12:44 RBC (4.20-5.40) M/uL Hgb (12.0-16.0) g/dl POC Hgb (12.0-16.0) g/dl Hct (37.0-47.0) % POC Hct (37-47) % MCV (80.0-100.0) fL MCH (25.0-34.0) pg RDW Std Deviation (36.4-46.3) fL MPV (9.4-12.4) fL Lymph # (Auto) (1.20-3.40) K/uL [place] # (Auto) (0.11-0.59) K/uL POC Sodium (135-144) mmol/L Sodium (136-145) mmol/L POC Chloride (101-112) mmol/L Chloride (98-107) mmol/L BUN/Creatinine Ratio (10-20) Glucose (70-99(Fasting)) mg/dl POC Glucose 114 H (70-99) mg/dl POC Glucose (other) (70-99) mg/dl Hemoglobin A1c (4.5-5.6) % Osmolality (280-300) mOsm/kg Calcium (8.6-10.3) mg/dl Magnesium (1.7-2.4) mg/dl Total Protein (6.0-8.3) gm/dl Globulin (2.5-4.0) gm/dl Urine Osmolality (500-800) mOsm/kg
[2024-03-30] MEDS: DEXTROSE 5% 1,000 ML IV SCH (15:02)
--- NOTE | 2024-03-30 15:25 | Neurology Consultation ---
Date of Consultation March 30, 2024 Assessment & Plan (1) Stroke-like symptom: DD is TIA vs acute encephalopathy The patient does have bilateral 60 to 70% carotid stenosis, cannot exclude a TIA due to hypoperfusion less likely an ulcerated plaque Plan Recommend aspirin 81 mg in addition to Plavix 75 mg plus atorvastatin 40 mg for 21 days. Plavix can be discontinued after 21 days. Recommend a Zio patch to rule out any arrhythmias contributing to hypoperfusion. Recommend to follow-up with neuroendovascular or vascular surgery as an outpatient Correction of underlying metabolic abnormalities is underway by primary team. Telehealth Consultation Telehealth Information Telehealth Information: I performed this visit using a real-time telehealth connection between my location and the patients location ([facility]). After connecting through interactive tele-video, patient was identified by name and date of and/or wristband check.Patient (or authorized healthcare licensing representative) was informed that this was a telemedicine visit and it was being conducted confidentially over secure lines. My office door was closed and no one else was present in the room with me.Patient (or authorized healthcare licensing representative) provided consent to proceed with the visit, expressed an understanding of privacy and security of the telemedicine visit, and gave permission to have a hospital licensing representative in the room in order to assist with the visit and to conduct portions of the visit, as needed. I informed the patient (or authorized healthcare licensing representative) that I reviewed their record and presented the opportunity for them to ask any questions regarding the visit today. The patient agreed to participate. 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 The patient drove her to and urgent care when her symptoms had resolved and they referred her to emergency room. By the time of the ED evaluation her symptoms has resolved, the patient was coherent and able to make sense. Upon my evaluation I asked the patient what brought her to the hospital and she said that she was sitting and she had shooting pain up and down her left arm. She may have had some garbled speech like her has told her. She denies any numbness or weakness, she denies any visual changes currently, denies any difficulty with walking Allergies Allergy/AdvReac Type Severity Reaction Status Date / Time Bleach (Sodium Hypochlorite) AdvReac Severe hives, Verified 03/29/24 22:18 itching, rash morphine AdvReac Mild SEVERE Verified 03/29/24 22:18 NAUSEA AND VOMITING Home Medications Medication Instructions Recorded Confirmed Type acetaminophen 500 mg tablet 500 mg PO Q6H PRN Pain 03/29/24 03/29/24 History (Tylenol Extra Strength) acyclovir 400 mg tablet 400 mg PO BID PRN flare up 03/29/24 03/29/24 History amlodipine 2.5 mg tablet 2.5 mg PO DAILY 03/29/24 03/29/24 History atorvastatin 20 mg tablet 20 mg PO DAILY 03/29/24 03/29/24 History carvedilol 6.25 mg tablet 6.25 mg PO BID 03/29/24 03/29/24 History cephalexin 500 mg capsule 500 mg PO TID 03/29/24 03/29/24 History clobetasol 0.05 % topical cream 1 applic topical BID PRN flare 03/29/24 03/29/24 History desonide 0.05 % topical cream 1 applic topical BID PRN flare up 03/29/24 03/29/24 History ibuprofen 200 mg tablet 200 mg PO Q6H PRN Pain 03/29/24 03/29/24 History lisinopril 40 mg tablet 40 mg PO DAILY 03/29/24 03/29/24 History magnesium oxide 500 mg PO DAILY 03/29/24 03/29/24 History metformin 500 mg tablet,extended 500 mg PO QAM 03/29/24 03/29/24 History release 24 hr omeprazole 20 mg capsule,delayed 20 mg PO QAM 03/29/24 03/29/24 History release peg 400-propylene glycol (PF) 0.4 1 drp ophthalmic (eye) BID 03/29/24 03/29/24 History %-0.3 % eye drops in a dropperette (Systane (PF)) trazodone 100 mg tablet 100 mg PO HS 03/29/24 03/29/24 History Patient History Medical History Peripheral neuropathy Amputated toe Social History Smoking Status: Never smoker Hx Alcohol Use: Yes Alcohol type: wine Alcohol type Comment: daily w/dinner Alcohol Intake Frequency: 4 or More x per/Week Hx Substance Use: No Preferred Language: Bulgarian Communication Ability: Effective Visual Impairment: Limited Hearing Ability: Normal Apple Picking Supervisor Required: No Beliefs That Will Affect Care: None marital status: Current Living Situation: Spouse current occupational status: retired Feels Safe at Home: Yes Safety Concerns: Feels Safe At This Time Diet: regular caffeine: Yes during the past year weight has: remained stable Gender Identity: Female Assistive Devices: Cane, Glasses and Walker Review of Systems Constitutional: Patient denies weight loss, fever, chills, and night sweats Eyes: Patient denies change in vision, tearing, pain, and redness ENT: Patient denies pain, bleeding, rhinorrhea, and dysphagia Cardiovascular: Patient denies chest pain, palpitation, dyspnea at rest, and dyspnea with exertion Respiratory: Patient denies shortness of breath, cough, wheezing, and productive cough GI: Patient denies reflux, pain, constipation, and diarrhea Skin: Patient denies rash, dryness, and itching Allergies/Immune System: Patient denies rhinorrhea, seasonal allergies, reaction to current MEDS, and joint swelling Endocrine: Patient denies weight loss, weight gain, temperature intolerance, and excessive thirst Neurological: All negative unless mentioned in the HPI Physical Exam General Constitutional: Appearance normally developed Head and face: normocephalic and atraumatic Eyes: no ptosis, no anisocoria, and no dysconjugate gaze Respiratory: normal effort Cardiovascular: regular rhythm and regular rate Abdomen: non distended Skin: no rashes, lesions, or ulcers noted Psychiatric: normal judgement and insight, normal mood, and normal affect NEUROLOGIC EXAMINATION: Mental Status:alert, oriented to time, place, person, normal recent memory, normal remote memory, normal attention span, normal concentration, normal language and normal fund of knowledge Cranial Nerves: CN 2 - no visual defect on confrontation and pupils round, equal, reactive to light CN 3, 4, 6 - extra-ocular movements intact and no nystagmus CN 5 - facial sensation intact CN 7 - no facial asymmetry CN 8 - intact hearing CN 9, 10 - palate symmetric, normal gag CN 11 - good shoulder shrug CN 12 - tongue midline MOTOR: Strength was at least antigravity throughout, Pronator drift was absent and There were no abnormal movements SENSATION: intact and symmetric to pinprick, light touch, vibration and joint position GAIT: stable, no ataxia and can perform tandem walking COORDINATION: no ataxia with finger to nose testing and heel to hickey testing REFLEXES: cannot assess over telemedicine NIH Stroke Scale: 1a. Level of Consciousness: alert = 0 1b. LOC Questions: (month, age): both correct = 0 1c. LOC Commands (open and close eyes, make fist and let go using non-paretic hand): obeys both correctly = 0 2. Best Gaze (eyes open and patient follows examiner's finger or face): normal = 0 3. Visual (visual threat or finger counting in each quadrant): no loss = 0 4. Facial Palsy (show teeth, raise eye brows and squeeze eyes shut, or grimace symmetry in a comatose patient): normal = 0 5a. Motor Arm (extend arm (palms down) to 90 degrees and score drift/movement (10 seconds) - Left: no drift = 0 5b. Motor Arm: (extend arm (palms down) to 90 degrees and score drift/movement (10 seconds) - Right: no drift = 0 6a. Motor Leg (elevate leg 30 degrees and score drift/ movement (5 seconds) - Left: no drift = 0 6b. Motor Leg (elevate leg 30 degrees and score drift/ movement (5 seconds) - Right: no drift = 0 7. Limb Ataxia (finger to nose, heel down hickey): absent = 0 8. Sensory (pin prick to face, arm, trunk and leg, compare side to side): normal = 0 9. Best Language: no aphasia = 0 10. Dysarthria (evaluate speech clarity by patient repeating listed words): normal articulation = 0 11. Extinction and Inattention: no neglect = 0 Total: 0 Results & Data Vital Signs (Past 12 Hours) Vital Signs Temp Pulse Pulse Resp BP Pulse Ox O2 Del Method 03/30/24 15:07 36.9 C 63 16 132/75 97 Room Air 03/30/24 08:13 66 19 157/72 H 95 Room Air 03/30/24 07:01 61 03/30/24 04:00 63 18 103/55 L 98 Room Air Laboratory Results Abnormal lab results 03/29/24 03/29/24 03/29/24 Range/Units 19:16 19:20 19:22 RBC 3.02 L (4.20-5.40) M/uL Hgb 10.8 L (12.0-16.0) g/dl POC Hgb 10.5 L (12.0-16.0) g/dl Hct 31.0 L (37.0-47.0) % POC Hct 31 L (37-47) % MCV 102.6 H (80.0-100.0) fL MCH 35.8 H (25.0-34.0) pg RDW Std Deviation 48.2 H (36.4-46.3) fL MPV 8.4 L (9.4-12.4) fL Lymph # (Auto) 1.08 L (1.20-3.40) K/uL [place] # (Auto) 0.63 H (0.11-0.59) K/uL POC Sodium 126 L (135-144) mmol/L Sodium 125 L (136-145) mmol/L POC Chloride 90 L (101-112) mmol/L Chloride 93 L (98-107) mmol/L BUN/Creatinine Ratio (10-20) Glucose 107 H (70-99(Fasting)) mg/dl POC Glucose 108 H (70-99) mg/dl POC Glucose (other) 103 H (70-99) mg/dl Hemoglobin A1c (4.5-5.6) % Osmolality (280-300) mOsm/kg Calcium 8.5 L (8.6-10.3) mg/dl Magnesium 1.2 L (1.7-2.4) mg/dl Total Protein 5.9 L (6.0-8.3) gm/dl Globulin 2.0 L (2.5-4.0) gm/dl Urine Osmolality (500-800) mOsm/kg 03/29/24 03/30/24 03/30/24 Range/Units 23:47 04:54 04:55 RBC 2.85 L (4.20-5.40) M/uL Hgb 10.2 L (12.0-16.0) g/dl POC Hgb (12.0-16.0) g/dl Hct 28.5 L (37.0-47.0) % POC Hct (37-47) % MCV (80.0-100.0) fL MCH 35.8 H (25.0-34.0) pg RDW Std Deviation (36.4-46.3) fL MPV 8.9 L (9.4-12.4) fL Lymph # (Auto) 0.90 L (1.20-3.40) K/uL [place] # (Auto) (0.11-0.59) K/uL POC Sodium (135-144) mmol/L Sodium 128 L (136-145) mmol/L POC Chloride (101-112) mmol/L Chloride 96 L (98-107) mmol/L BUN/Creatinine Ratio 9.2 L (10-20) Glucose 106 H (70-99(Fasting)) mg/dl POC Glucose 122 H (70-99) mg/dl POC Glucose (other) (70-99) mg/dl Hemoglobin A1c 6.6 H (4.5-5.6) % Osmolality 271 L (280-300) mOsm/kg Calcium (8.6-10.3) mg/dl Magnesium (1.7-2.4) mg/dl Total Protein (6.0-8.3) gm/dl Globulin (2.5-4.0) gm/dl Urine Osmolality (500-800) mOsm/kg 03/30/24 03/30/24 03/30/24 Range/Units 07:35 09:48 10:03 RBC (4.20-5.40) M/uL Hgb (12.0-16.0) g/dl POC Hgb (12.0-16.0) g/dl Hct (37.0-47.0) % POC Hct (37-47) % MCV (80.0-100.0) fL MCH (25.0-34.0) pg RDW Std Deviation (36.4-46.3) fL MPV (9.4-12.4) fL Lymph # (Auto) (1.20-3.40) K/uL [place] # (Auto) (0.11-0.59) K/uL POC Sodium (135-144) mmol/L Sodium 130 L (136-145) mmol/L POC Chloride (101-112) mmol/L Chloride 96 L (98-107) mmol/L BUN/Creatinine Ratio 7.8 L (10-20) Glucose 111 H (70-99(Fasting)) mg/dl POC Glucose 141 H (70-99) mg/dl POC Glucose (other) (70-99) mg/dl Hemoglobin A1c (4.5-5.6) % Osmolality (280-300) mOsm/kg Calcium (8.6-10.3) mg/dl Magnesium (1.7-2.4) mg/dl Total Protein (6.0-8.3) gm/dl Globulin (2.5-4.0) gm/dl Urine Osmolality 225 L (500-800) mOsm/kg 03/30/24 Range/Units 12:44 RBC (4.20-5.40) M/uL Hgb (12.0-16.0) g/dl POC Hgb (12.0-16.0) g/dl Hct (37.0-47.0) % POC Hct (37-47) % MCV (80.0-100.0) fL MCH (25.0-34.0) pg RDW Std Deviation (36.4-46.3) fL MPV (9.4-12.4) fL Lymph # (Auto) (1.20-3.40) K/uL [place] # (Auto) (0.11-0.59) K/uL POC Sodium (135-144) mmol/L Sodium (136-145) mmol/L POC Chloride (101-112) mmol/L Chloride (98-107) mmol/L BUN/Creatinine Ratio (10-20) Glucose (70-99(Fasting)) mg/dl POC Glucose 114 H (70-99) mg/dl POC Glucose (other) (70-99) mg/dl Hemoglobin A1c (4.5-5.6) % Osmolality (280-300) mOsm/kg Calcium (8.6-10.3) mg/dl Magnesium (1.7-2.4) mg/dl Total Protein (6.0-8.3) gm/dl Globulin (2.5-4.0) gm/dl Urine Osmolality (500-800) mOsm/kg Diagnostic Findings Chest X-Ray 03/29/24 19:05 XR chest 1V portable CLINICAL HISTORY: neuro deficit, acute stroke suspected COMPARISON STUDY: Chest radiograph March 18, 2016. FINDINGS: Moderate elevation of the right hemidiaphragm has increased since prior chest radiograph. There is no pneumothorax or pleural effusion. There is no consolidation or evidence for pulmonary edema. Cardiomediastinal silhouette is unremarkable. IMPRESSION: 1. No acute cardiopulmonary findings. 2. Moderate elevation of the right hemidiaphragm, increased since chest radiograph of March 18, 2016. ACT 112: Negative or not required by law. Electronically signed by: Kemal Zamarripa M.D. 03/30/2024 8:[address] 03/29/24 19:05 CR Exam(s): CT HEAD Without Contrast EXAM: CT Head Without Intravenous Contrast CLINICAL HISTORY: Reason for exam: neuro deficit, acute stroke suspected. TECHNIQUE: Axial computed tomography images of the head/brain without intravenous contrast. CTDI is 45.89 mGy and DLP is 677.48 mGy-cm. Automated exposure control was utilized for the study. A dose lowering technique was utilized adhering to the principles of ALARA. Mild motion artifact. COMPARISON: Head CT 02/04/24. FINDINGS: Brain: No mass effect or acute infarct. No acute hemorrhage. Mild to moderate atrophy and chronic white matter disease, stable. Ventricles: No hydrocephalus or midline shift. Bones/joints: No skull fracture. Soft tissues: No scalp hematoma. Visualized Sinuses: Clear. Mastoid air cells: No mastoid effusion. IMPRESSION: 1. Stable age-related findings. 2. No acute infarct, bleed, or acute intracranial abnormality. Communications: Call Doctor Stroke Electronically signed by: Ilana Young M.D. 03/29/24 19:34 PM Head CTA 03/29/24 19:05 CR Exam(s): CTA HEAD With Contrast IV Amt: OPTIRAY 320 118ML EXAM: CT Angiography Head With Intravenous Contrast CLINICAL HISTORY: Reason for exam: neuro deficit, acute stroke suspected. TECHNIQUE: Axial computed tomographic angiography images of the head with intravenous contrast. CTDI is 11.47 mGy and DLP is 398.9 mGy-cm. Automated exposure control was utilized for the study. A dose lowering technique was utilized adhering to the principles of ALARA. MIP reconstructed images were created and reviewed. Venous contamination and mild motion artifact. CONTRAST: Patient received OPTIRAY 320 118ML of IV contrast COMPARISON: Head CT done earlier. FINDINGS: Right internal carotid artery: Patent. Right anterior cerebral artery: Patent. Right middle cerebral artery: Patent. Right posterior cerebral artery: Patent. Right vertebral artery: Nondominant, terminates as a PICA. Left internal carotid artery: Patent. Left anterior cerebral artery: Patent. Left middle cerebral artery: Patent. Left posterior cerebral artery: Patent. Left vertebral artery: Moderate atherosclerotic calcification with approximately moderate, 50-60% stenosis. Basilar artery: Patent. Other: Bilateral cavernous ICA atherosclerosis, with approximately moderate, 50-60% stenosis. Patent dural venous sinuses. IMPRESSION: 1. Intracranial atherosclerosis and approximately, 50-60% stenosis. 2. No aneurysm or large vessel occlusion. Communications: Call Doctor Stroke Electronically signed by: Ilana Young M.D. 03/29/24 19:34 PM Neck CTA 03/29/24 19:05 CR Exam(s): CTA NECK With Contrast IV Amt: OPTIRAY 320 118ML EXAM: CT Angiography Neck With Intravenous Contrast CLINICAL HISTORY: Reason for exam: neuro deficit, acute stroke suspected. TECHNIQUE: Routine carotid CT angiography protocol was performed with intravenous contrast. NASCET criteria using the distal ICAs for comparison were used for evaluation of stenoses. CTDI is 11.47 mGy and DLP is 398.9 mGy-cm. Automated exposure control was utilized for the study. A dose lowering technique was utilized adhering to the principles of ALARA. MIP reconstructed images were created and reviewed. Mild motion and dental metal artifact. CONTRAST: Patient received OPTIRAY 320 118ML of IV contrast COMPARISON: None. FINDINGS: Right common carotid artery: Patent. Right internal carotid artery: Dense atherosclerotic calcification, with moderate, 60-70% stenosis.. Right vertebral artery: Patent. Left common carotid artery: Patent. Left internal carotid artery: Dense/complex atherosclerotic plaque, limited detail due to motion artifact. Moderate, 60-70% stenosis. Left vertebral artery: Patent. Left dominant system. Other: IMPRESSION: 1. Dense atherosclerotic calcification, with moderate bilateral ICA stenosis, 60-70%. 2. No other dissection/occlusion/significant stenosis. CAROTID STENOSIS REFERENCE USING NASCET CRITERIA: % ICA stenosis = (1 - narrowest ICA diameter/diameter of distal cervical ICA) x 100. Mild - <50% stenosis. Moderate - 50-69% stenosis. Severe - 70-94% stenosis. Near occlusion - 95-99% stenosis. Occluded - 100% stenosis. Communications: Call Doctor Stroke Electronically signed by: Ilana Young M.D. 03/29/24 19:34 PM Brain MRI 03/29/24 22:22 Exam(s): MRI HEAD W/WO Contrast IV Amt: 7.5mL Gadavist given IV EXAM: MR Head Without and With Intravenous Contrast CLINICAL HISTORY: Reason for exam: stroke like symptoms. TECHNIQUE: Magnetic resonance images of the head/brain without and with intravenous contrast in multiple planes. Moderate motion artifact. CONTRAST: Patient received 7.5mL Gadavist given IV of IV contrast COMPARISON: CT/CTA head earlier. FINDINGS: Brain: No mass effect or acute infarct. No acute hemorrhage. Mild atrophy and chronic white matter disease. No abnormal enhancement or mass. Ventricles: No hydrocephalus or midline shift. Bones/joints: No acute finding. Soft tissues: No scalp hematoma. Visualized Sinuses: Clear. Mastoid air cells: No mastoid effusion. IMPRESSION: 1. Mild age-related findings. 2. No abnormal enhancement, acute infarct, bleed, or acute intracranial abnormality. Electronically signed by: Ilana Young M.D. 03/29/24 23:43 PM Echocardiogram 03/30/2024: LVEF equals 60-65% mild mitral annular calcification, interatrial septum is intact, sinus rhythm in the 60s during echocardiogram, mild LVH, mildly elevated pulmonary hypertension, left atrium is mildly dilated Medications Administered Home Medications Medication Instructions Recorded Confirmed Last Taken acetaminophen 500 mg tablet 500 mg PO Q6H PRN Pain 03/29/24 03/29/24 Unknown (Tylenol Extra Strength) acyclovir 400 mg tablet 400 mg PO BID PRN flare up 03/29/24 03/29/24 Unknown amlodipine 2.5 mg tablet 2.5 mg PO DAILY 03/29/24 03/29/24 Unknown atorvastatin 20 mg tablet 20 mg PO DAILY 03/29/24 03/29/24 Unknown carvedilol 6.25 mg tablet 6.25 mg PO BID 03/29/24 03/29/24 Unknown cephalexin 500 mg capsule 500 mg PO TID 0803/29/24 03/29/24 16:00 clobetasol 0.05 % topical cream 1 applic topical BID PRN flare 03/29/24 03/29/24 Unknown desonide 0.05 % topical cream 1 applic topical BID PRN flare up 03/29/24 03/29/24 Unknown ibuprofen 200 mg tablet 200 mg PO Q6H PRN Pain 03/29/24 03/29/24 Unknown lisinopril 40 mg tablet 40 mg PO DAILY 03/29/24 03/29/24 Unknown magnesium oxide 500 mg PO DAILY 03/29/24 03/29/24 Unknown metformin 500 mg tablet,extended 500 mg PO QAM 03/29/24 03/29/24 Unknown release 24 hr omeprazole 20 mg capsule,delayed 20 mg PO QAM 03/29/24 03/29/24 Unknown release peg 400-propylene glycol (PF) 0.4 1 drp ophthalmic (eye) BID 03/29/24 03/29/24 Unknown %-0.3 % eye drops in a dropperette (Systane (PF)) trazodone 100 mg tablet 100 mg PO HS 03/29/24 03/29/24 Unknown Active Medications Generic Name Dose Route Start Last Admin Trade Name Freq PRN Reason Stop Dose Admin Amlodipine Besylate 2.5 mg 03/30/24 09:00 03/30/24 08:14 Amlodipine Besylate 5 Mg Tab PO 04/29/24 08:59 2.5 mg DAILY KAREN Administration Artificial Tears 1 drops 03/30/24 09:00 03/30/24 08:15 Artificial Tears OP 04/29/24 08:59 1 drops BID KAREN Administration Aspirin 81 mg 03/30/24 13:30 03/30/24 14:02 Aspirin 81 Mg Ectab PO 04/29/24 13:29 81 mg QAM KAREN Administration Carvedilol 6.25 mg 03/30/24 09:00 03/30/24 08:14 Carvedilol 6.25 Mg Tab PO 04/29/24 08:59 6.25 mg BID KAREN Administration Cephalexin HCl 500 mg 03/30/24 13:00 03/30/24 14:02 Cephalexin 500 Mg Cap PO 04/06/24 12:59 500 mg QID KAREN Administration Protocol Dextrose 1,000 mls @ 100 mls/hr 03/30/24 14:30 03/30/24 15:02 D5w IV 04/29/24 14:29 125 mls/hr .Q10H KAREN Administration Insulin Aspart 0 units 03/30/24 10:10 03/30/24 14:02 Insulin Aspart Per Unit Charge SC 04/29/24 10:09 2 units ACHS KAREN Administration Lisinopril 40 mg 03/30/24 09:00 03/30/24 08:14 Lisinopril 40 Mg Tab PO 04/29/24 08:59 40 mg DAILY KAREN Administration Magnesium Oxide 400 mg 03/30/24 09:00 03/30/24 08:14 Magnesium Oxide 400 Mg Tab PO 04/29/24 08:59 400 mg DAILY KAREN Administration Pantoprazole Sodium 40 mg 03/30/24 09:00 03/30/24 08:14 Pantoprazole 40 Mg Tab PO 04/29/24 08:59 40 mg QAM KAREN Administration
[2024-03-30] MEDS: CLOPIDOGREL BISULFATE 75 MG TAB PO SCH (15:58)
[2024-03-30 17:36] LABS: Calcium 8.8 mg/dl (8.6-10.3); Creatinine Clr Calc Pharmacy 50.8 ml/min; Est GFR (African American) 77.2 ml/min; Est GFR (Non-African American) 66.6 ml/min; Potassium 3.7 mmol/L (3.5-5.1)
[2024-03-30 19:15] VITALS: RESP 18
[2024-03-30] MEDS: traZODone HCL 50 MG TAB PO SCH (20:26)
[2024-03-30] MEDS ORDERED: traZODone HCL 100 MG TAB PO SCH (21:00)
[2024-03-30 23:43] LABS: BUN Creatinine Ratio 10.4 (10-20); Calcium 9.1 mg/dl (8.6-10.3); Creatinine Clr Calc Pharmacy 54.1 ml/min; Est GFR (African American) 83.3 ml/min; Est GFR (Non-African American) 71.9 ml/min; Potassium 3.7 mmol/L (3.5-5.1)
[2024-03-31 06:53] LABS: Basophils # (auto) 0.02 K/uL (0.00-0.20); Basophils % (auto) 0.4 %; Eosinophils # (auto) 0.12 K/uL (0.00-0.50); Eosinophils % (auto) 2.6 %; Hemoglobin 11.3 g/dl (12.0-16.0); Immature Granulocytes # (auto) 0.01 K/uL (0.01-0.20); Immature Granulocytes % (auto) 0.2 %; Lymphocytes # (auto) 0.84 K/uL (1.20-3.40); Lymphocytes % (auto) 18.5 %; Mean Corpuscular Hemoglobin 35.5 pg (25.0-34.0); Mean Corpuscular Hgb Conc 35.3 g/dL (32.0-36.0); Mean Corpuscular Volume 100.6 fL (80.0-100.0); Mean Platelet Volume 8.7 fL (9.4-12.4); Monocytes # (auto) 0.46 K/uL (0.11-0.59); Monocytes % (auto) 10.2 %; Neutrophils # (auto) 3.08 K/uL (1.40-6.50); Neutrophils % (auto) 68.1 %; Platelet Count 214 K/uL (130-400); RDW Coefficient of Variation 12.7 % (11.5-14.5); RDW Standard Deviation 47.7 fL (36.4-46.3); Red Blood Count 3.18 M/uL (4.20-5.40); White Blood Count 4.53 K/ul (4.8-10.8)
[2024-03-31 07:16] LABS: BUN Creatinine Ratio 9.9 (10-20); Calcium 9.1 mg/dl (8.6-10.3); Creatinine Clr Calc Pharmacy 58.5 ml/min; Est GFR (African American) 91.9 ml/min; Est GFR (Non-African American) 79.3 ml/min; Potassium 3.7 mmol/L (3.5-5.1)
[2024-03-31 07:30] VITALS: TEMP 98.1
[2024-03-31] MEDS: ATORVASTATIN 40 MG TAB PO SCH (09:01)
[2024-03-31 10:55] VITALS: BP 164/78; PULSE 62; O2SAT 99
[2024-03-31] MEDS ORDERED: STROKE PATIENT DISCHARGE STA (13:09)
--- NOTE | 2024-03-31 13:09 | Discharge Summary ---
Date of Service March 31, 2024 Admission HPI Per Admitting Provider 83-year-old female with past medical history significant for type 2 diabetes, hyperlipidemia, hypertension, purpura Senilis, GERD, nontraumatic complete tear of left rotator cuff, history of partial amputation of toe of left foot, generalized anxiety comes in because of strokelike symptoms. Around 5 PM patient was having some trouble speaking. Words were coming but with garbled and they were not in order. And on the way to hospital she was also confused. The episode lasted for about half hour and resolved. TNK was not given as symptoms improved. Currently back to baseline. Patient had wound in right hickey region happened a week ago when she was climbing the steps and injured. She went to PCP today and was prescribed Keflex. Her speech symptoms started coming from PCPs office. Currently having headache and ask for pain medication. Vision is okay. No runny nose. No sore throat. No cough. No difficulty swallowing. Currently afebrile. No chest pain or shortness of breath. No nausea. No abdominal pain. Past medical history. As mentioned above Past surgical history. Right shoulder arthroscopy. Bunion correction. Carpal tunnel surgery. Colonoscopy. Dental surgery. EGD with biopsy. Bowel surgery for bowel obstruction. Bilateral knee arthroscopy. Right laser trabeculoplasty. Left partial removal of eye fluid. Left fifth toe partial removal. Tonsillectomy. Bilateral cataracts. Cholecystectomy. Repair of hammertoe. Total abdominal hysterectomy with removal of tubes. Social history. . No smoking. Alcohol use 2/day per epic. No drug use. Family history. Mother had arthritis. Rheumatic fever. Stroke. Father had CHF. Brother has diabetes. Admission Exam Per Admitting Provider General- Not in distress. Head- atraumatic Eyes- PERRL. ENT- oropharynx clear Neck- supple, no JVD. Lungs- clear to auscultation no wheezing or crackles Heart- regular rhythm; no murmur, no gallop. Abdomen- normal bowel sounds, soft, nontender, no distension Extremities-mild pretibial edema, 2 x2 cm wound seen on medial aspect of right hickey Neuro- alert, oriented ; PERRL, no facial palsy; no dysarthria; motor 5/5 bilaterally; no pronator drift, sensations intact Principal Diagnosis Transient ischemic attack Hyponatremia Discharge Exam Constitutional + well hydrated; no acute distress Eyes PERRL, conjunctivae normal, anicteric sclerae ENMT external ear and nose normal, oropharynx normal Respiratory normal respiratory effort, lungs clear to auscultation Cardiovascular Rate/Rhythm: regular rate and regular rhythm Gastrointestinal (Abdomen) normal bowel sounds, soft, nontender, no hepatosplenomegaly Musculoskeletal no cyanosis or clubbing, extremities motor strength 5/5 Neurologic PERRL, EOMI, accommodation nl, no face palsy, no dysarthria Psychiatric A+Ox3, euthymic affect Discharge Data Allergies Allergy/AdvReac Type Severity Reaction Status Date / Time Bleach (Sodium Hypochlorite) AdvReac Severe hives, Verified 03/29/24 22:18 itching, rash morphine AdvReac Mild SEVERE Verified 03/29/24 22:18 NAUSEA AND VOMITING Consultations 03/29/24 20:13 ED Decision to Admit Stat 03/30/24 06:37 Consult Nephrology Routine 03/30/24 08:00 Consult Neurology Routine 03/30/24 08:32 Consult Vascular Surgery Routine Ordered Studies 03/29/24 19:05 CT angio head w con Stat CT angio neck with con Stat CT head/brain wo con Stat 03/29/24 22:22 MR brain wo/w con Urgent Hospital Course (1) Stroke-like symptom: 83-year-old female with past medical history significant for type 2 diabetes, hyperlipidemia, hypertension, purpura Senilis, GERD, nontraumatic complete tear of left rotator cuff, history of partial amputation of toe of left foot, generalized anxiety comes in because of strokelike symptoms. Around 5 PM patient was having some trouble speaking. Words were coming but with garbled and they were not in order. And on the way to hospital she was also confused. The episode lasted for about half hour and resolved. TNK was not given as symptoms improved. Currently back to baseline. Patient had wound in right hickey region happened a week ago when she was climbing the steps and injured. She went to PCP today and was prescribed Keflex. Her speech symptoms started coming from PCPs office. Currently having headache and ask for pain medication. Vision is okay. No runny nose. No sore throat. No cough. No difficulty swallowing. Currently afebrile. No chest pain or shortness of breath. No nausea. No abdominal pain. Strokelike symptom Had transient expressive aphasia. CT head did not show any acute infarct or bleeding Brain MRI did not show acute abnormalities CTA head and neck showing moderate bilateral ICA stenosis 60 to 70% Likely TIA Neurology evaluated TTE showed EF 60-65%, mild conc LVH, mild mitral annular calcification, PASP 45mmHg. No evidence of ASD/PFO/atrial shunt Started on DAPT. Neuro recommends DAPT for 3 weeks and then ASA 81mg daily afterward Atorvastatin increased to 40mg daily Patient advised to follow up with Vascular/Neurovascular surgeon for management of Carotid stenosis PCP to arrange holter monitor/Zio patch testing Type 2 diabetes HbA1c 6.6 Continue home metformin Hyponatremia Sodium 125 on admission Urine tests suggestive of SIADH Sodium improved to 132 today Nephrology evaluated and recommended fluid restriction 1500cc/day, patient to be weaned off trazodone if possible Trazodone reduced to 50mg HS. PCP can wean off on follow up Patient advised to follow up with Nephrology outpatient PCP to check BMP on follow up Hypertension Continue home medications of amlodipine, Coreg and lisinopril BP fluctuations while inpatient Patient advised to monitor BP at home and follow up with PCP GERD On omeprazole Right hickey wound Complete keflex started by PCP Total Time Total Time Spent Total Time Spent (In Minutes): 35 Total Time Includes: Examination of the Patient, Discharge Planning and Medication Reconciliation Discharge Plan Discharge Items Patient Disposition: Home - Self-Care Reason For Visit: Garbled speech Discharge Diagnosis: Transient ischemic attack Hyponatremia Activity: Resume your previous activity Non-emergency contact: Primary Care Provider Call non-emergency contact if: you have any medication questions Follow-up/Referrals: Steven Waterman, [Primary Care Provider] - Diet: Heart Healthy Fluids: 1500ml (6 cups) Addtl Attending Provider Instructions: Mrs Mahmood You were brought to the hospital due to stroke like symptoms. You were extensively evaluated for this. You are being discharged on Aspirin 81mg daily and Plavix 75mg daily for next 3 weeks after which you stop the plavix and continue the aspirin. Your atorvastatin was increased to 40mg daily. You were noted to have some narrowing in the blood vessels supplying your brain. Hence you need to follow up with Vascular surgeon for further evaluation and management. Please ensure follow up with your Primary Doctor. Your Primary Doctor will arrange holter monitor or zio patch testing. 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 It was a pleasure taking care of you. Pending Studies at Discharge: No Stand-Alone Forms: My [facility], Smoking Cessation, Medications to Prevent Stroke Medications and DC Order Prescriptions: New clopidogrel 75 mg Tablet 75 mg PO QAM 19 Days Qty: 19 0RF aspirin 81 mg Tablet,Delayed Release (Dr/Ec) 81 mg PO QAM Qty: 30 0RF Continued desonide 0.05 % Cream 1 applic TOPICAL BID PRN (Reason: flare up) carvedilol 6.25 mg tablet 6.25 mg PO BID clobetasol 0.05 % Cream 1 applic TOPICAL BID PRN (Reason: flare) amlodipine 2.5 mg tablet 2.5 mg PO DAILY acyclovir 400 mg Tablet 400 mg PO BID PRN (Reason: flare up) acetaminophen [Tylenol Extra Strength] 500 mg Tablet 500 mg PO Q6H PRN (Reason: Pain) cephalexin 500 mg capsule 500 mg PO TID magnesium oxide 500 mg magnesium Tablet 500 mg PO DAILY omeprazole 20 mg capsule,delayed release(DR/EC) 20 mg PO QAM lisinopril 40 mg tablet 40 mg PO DAILY metformin 500 mg tablet extended release 24 hr 500 mg PO QAM Systane (PF) 0.4-0.3 % Dropperette 1 drp OPHTHALMIC (EYE) BID Changed atorvastatin 20 mg tablet 40 mg PO DAILY 30 Days Qty: 60 0RF trazodone 100 mg tablet 50 mg PO HS Qty: 0 0RF Discontinued ibuprofen 200 mg Tablet 200 mg PO Q6H PRN (Reason: Pain) Discharge Orders: Discharge Order (Routine); Ordered 03/31/24 Ordered By: Graciela Smith/Other Patient Handouts: Managing Type 2 Diabetes Admission Data Admit Date/Time: 03/29/24 21:37 Attending Provider: Graciela Ledezma I. Admit Provider: Gallo Lozada Primary Care Provider: Steven Waterman Other Providers: Gallo Lozada; Molly Ahuja; Trevor Almeida Molly Montesinos; Mir Morgan; Rivera Childers; Shekhar Valdes; Izaiah Obrien; Tana Drummond; Boom Le; Romie Winchester; Cassandra Izquierdo; Steven Hand; Dena Sheehan; Marah Sanon; Izaiah Rodriguez; Maryam Gordon; Leland Choi; Melvin Sawyer Other Interventions: Discharge Summary Assessment (RN) Last Done: 03/31/24 13:01
--- NOTE | 2024-04-02 09:57 | Consultation ---
Date of Consultation April 02, 2024 History of Present Illness Reason for Consultation: sx carotid stenosis Attending Physician: Graciela Ledezma MD History of Present Illness Patient discharged before being seen Allergies Allergy/AdvReac Type Severity Reaction Status Date / Time Bleach (Sodium Hypochlorite) AdvReac Severe hives, Verified 03/29/24 22:18 itching, rash morphine AdvReac Mild SEVERE Verified 03/29/24 22:18 NAUSEA AND VOMITING Home Medications Medication Instructions Recorded Confirmed Type acetaminophen 500 mg tablet 500 mg PO Q6H PRN Pain 03/29/24 03/29/24 History (Tylenol Extra Strength) acyclovir 400 mg tablet 400 mg PO BID PRN flare up 03/29/24 03/29/24 History amlodipine 2.5 mg tablet 2.5 mg PO DAILY 03/29/24 03/29/24 History carvedilol 6.25 mg tablet 6.25 mg PO BID 03/29/24 03/29/24 History cephalexin 500 mg capsule 500 mg PO TID 03/29/24 03/29/24 History clobetasol 0.05 % topical cream 1 applic topical BID PRN flare 03/29/24 03/29/24 History desonide 0.05 % topical cream 1 applic topical BID PRN flare up 03/29/24 03/29/24 History lisinopril 40 mg tablet 40 mg PO DAILY 03/29/24 03/29/24 History magnesium oxide 500 mg PO DAILY 03/29/24 03/29/24 History metformin 500 mg tablet,extended 500 mg PO QAM 03/29/24 03/29/24 History release 24 hr omeprazole 20 mg capsule,delayed 20 mg PO QAM 03/29/24 03/29/24 History release peg 400-propylene glycol (PF) 0.4 1 drp ophthalmic (eye) BID 03/29/24 03/29/24 History %-0.3 % eye drops in a dropperette (Systane (PF)) aspirin 81 mg tablet,delayed 81 mg PO QAM #30 tabs 03/31/24 Rx release atorvastatin 20 mg tablet 40 mg (2 x 20 mg) PO DAILY 30 days 03/31/24 Rx #60 tabs clopidogrel 75 mg tablet 75 mg PO QAM 19 days #19 tabs 03/31/24 Rx trazodone 100 mg tablet 50 mg (1/2 x 100 mg) PO HS #0 tabs 03/31/24 03/29/24 Rx Patient History Medical History Peripheral neuropathy Amputated toe Social History Smoking Status: Never smoker Hx Alcohol Use: Yes Alcohol type: wine Alcohol type Comment: daily w/dinner Alcohol Intake Frequency: 4 or More x per/Week Hx Substance Use: No Preferred Language: Upper Sorbian Communication Ability: Effective Visual Impairment: Limited Hearing Ability: Normal Rn Infusion Required: No Beliefs That Will Affect Care: None marital status: Current Living Situation: Spouse current occupational status: retired Feels Safe at Home: Yes Safety Concerns: Feels Safe At This Time Diet: regular caffeine: Yes during the past year weight has: remained stable Gender Identity: Female Assistive Devices: Cane, Glasses and Walker
--- NOTE | 2024-04-02 11:39 | Pharmacy Report ---
Pharmacist Stroke Counseling - Date of Service April 02, 2024 - Scope: Pharmacy has been consulted to provide medication discharge counseling for this patient admitted with [ischemic stroke] [hemorrhagic stroke] [transient ischemic attack] as per the Pharmacist Discharge Counseling for Stroke Patients Pro tocol. - Medications on Discharge: Home Medications Medication Instructions Recorded Confirmed acetaminophen 500 mg tablet 500 mg PO Q6H PRN Pain 03/29/24 03/29/24 (Tylenol Extra Strength) acyclovir 400 mg tablet 400 mg PO BID PRN flare up 03/29/24 03/29/24 amlodipine 2.5 mg tablet 2.5 mg PO DAILY 03/29/24 03/29/24 carvedilol 6.25 mg tablet 6.25 mg PO BID 03/29/24 03/29/24 cephalexin 500 mg capsule 500 mg PO TID 03/29/24 03/29/24 clobetasol 0.05 % topical cream 1 applic topical BID PRN flare 03/29/24 03/29/24 desonide 0.05 % topical cream 1 applic topical BID PRN flare up 03/29/24 03/29/24 lisinopril 40 mg tablet 40 mg PO DAILY 03/29/24 03/29/24 magnesium oxide 500 mg PO DAILY 03/29/24 03/29/24 metformin 500 mg tablet,extended 500 mg PO QAM 03/29/24 03/29/24 release 24 hr omeprazole 20 mg capsule,delayed 20 mg PO QAM 03/29/24 03/29/24 release peg 400-propylene glycol (PF) 0.4 1 drp ophthalmic (eye) BID 03/29/24 03/29/24 %-0.3 % eye drops in a dropperette (Systane (PF)) Medication Instructions Recorded aspirin 81 mg tablet,delayed 81 mg PO QAM #30 tabs 03/31/24 release atorvastatin 20 mg tablet 40 mg (2 x 20 mg) PO DAILY 30 days 03/31/24 #60 tabs clopidogrel 75 mg tablet 75 mg PO QAM 19 days #19 tabs 03/31/24 trazodone 100 mg tablet 50 mg (1/2 x 100 mg) PO HS #0 tabs 03/31/24 - Action: The above medications, specifically ones for stroke treatment/prophylaxis, have been reviewed in detail with the patient and/or patient business office representative(s) prior to discharge. This includes indication, common adverse reactions, drug interactions, and medication administration. Medication counseling has been employed using the teach-back method to ensure understanding. - Outcome: The patient and/or patient business office representative(s) have demonstrated understanding of the medications. Additional comments: Reviewed new medications with patient over the phone. Patient confirms new medications and dosing changes. We talked about plan for aspirin/plavix daily x 3 weeks then aspirin alone. Patient reports not feeling well after plavix dose today, however did take on empty stomach so will try taking it with food tomorrow. Did mention potential drug interaction with omeprazole/plavix. Patient reports they are planning on taking her off of omeprazole. We talked about how tums prn could be used as option if having any heartburn. Patient aware she should not be taking ibuprofen. Patient in hurry, only able to talk briefly. Was not able to review all continued medications. Did recommend patient bring with her an updated med list to her PCP visit today. Patient agreed to do so. Thank you for allowing pharmacy to be involved in the care of this patient. Please call [phone] with any additional questions
== END 2024-03-31 13:39 | disposition home or self-care (01) | DRG 69 ==
LOC: ED 18:51 → SUATTDRO 21:37 → EDINP 21:37 → 2E 22:22

== ENCOUNTER 2024-04-16 05:56 | Inpatient (IN) ==
--- NOTE | 2024-04-05 13:35 | Anesthesiology Consultation ---
Date of Service April 05, 2024 Assessment & Plan (1) Encounter for pre-operative examination: Chart Review Chart Review: Acceptable Risk for Surgery and Patient NOT seen in Pre Admission Testing Consults Requested none History Surgery Operation Date: 04/11/24 13:00 Proposed Procedures p Left Transcarotid Artery Revascularization - Melvin Sawyer MD Height/Weight Height: 5 ft 2 in Weight: 74.843 kg Allergies Allergy/AdvReac Type Severity Reaction Status Date / Time Bleach (Sodium Hypochlorite) AdvReac Severe hives, Verified 04/05/24 08:00 itching, rash morphine AdvReac Mild SEVERE Verified 04/05/24 08:00 NAUSEA AND VOMITING Medications Home Medications Medication Instructions Recorded Confirmed Last Taken acetaminophen 500 mg tablet 500 mg PO Q6H PRN Pain 03/29/24 04/05/24 Unknown (Tylenol Extra Strength) acyclovir 400 mg tablet 400 mg PO BID PRN flare up 03/29/24 04/05/24 Unknown amlodipine 2.5 mg tablet 2.5 mg PO QAM 03/29/24 04/05/24 Unknown carvedilol 6.25 mg tablet 6.25 mg PO BID 03/29/24 04/05/24 Unknown cephalexin 500 mg capsule 500 mg PO TID 03/29/24 04/05/24 03/29/24 16:00 clobetasol 0.05 % topical cream 1 applic topical BID PRN flare 03/29/24 04/05/24 Unknown desonide 0.05 % topical cream 1 applic topical BID PRN flare up 03/29/24 04/05/24 Unknown lisinopril 40 mg tablet 40 mg PO QAM 03/29/24 04/05/24 Unknown magnesium oxide 500 mg PO DAILY 03/29/24 04/05/24 Unknown metformin 500 mg tablet,extended 500 mg PO QAM 03/29/24 04/05/24 Unknown release 24 hr peg 400-propylene glycol (PF) 0.4 1 drp ophthalmic (eye) BID 03/29/24 04/05/24 Unknown %-0.3 % eye drops in a dropperette (Systane (PF)) aspirin 81 mg tablet,delayed 81 mg PO QAM #30 tabs 03/31/24 04/05/24 Unknown release clopidogrel 75 mg tablet 75 mg PO QAM 19 days #19 tabs 03/31/24 04/05/24 Unknown trazodone 100 mg tablet 50 mg (1/2 x 100 mg) PO HS #0 tabs 03/31/24 04/05/24 Unknown atorvastatin 20 mg tablet 40 mg PO QAM 04/05/24 04/05/24 Unknown Past Medical History Medical History (Updated 04/05/24 @ 13:38 by John Elena MD) Encounter for pre-operative examination History of COVID-19 (02/05/24) pt. reports testing pos at her doctor office Hyponatremia Carotid stenosis Hip bursitis, left Hx-TIA (transient ischemic attack) (02/2024) recent admit to [facility], symptoms of speech difficulty have completely improved adn pt. reports no ongoing symptoms AMY (generalized anxiety disorder) Hx SBO History of Holter monitoring currently has, will complete on 04/16 GERD (gastroesophageal reflux disease) Hyperlipidemia Hypertension Anemia Wound infection (02/2024) right leg, inside of calf, due to a fall, currently taking cephalexin, states wound is resolving, will see the wound center at [facility], wound is dry, per pt. DM2 (diabetes mellitus, type 2) Peripheral neuropathy Amputated toe partial, left toe Past Surgical History Surgical History History of intestinal surgery due to sbo History of trabeculectomy left eye History of arthroscopy of right shoulder Hx of colonoscopy Hx of esophagogastroduodenoscopy Hx of toe surgery multiple- bunionectomies, amputation of tips of toes History of carpal tunnel release of both wrists Hx of total hysterectomy Hx of total knee arthroplasty S/P cholecystectomy Hx of bilateral cataract extraction Social History Smoking Status: Never smoker Do You Dip or Chew Tobacco: No Hx Alcohol Use: Yes Alcohol type: wine alcohol intake frequency: 0-2 drinks per day Hx Substance Use: No substance use type: does not use Testing Laboratory Results Laboratory Tests 03/31/24 06:05 WBC 4.53 L Hgb 11.3 L Hct 32.0 L Plt Count 214 Sodium 132 L Potassium 3.7 Chloride 98 Carbon Dioxide 26 BUN 7 Creatinine 0.71 Glucose 130 H Electrocardiogram Date: 03/29/24 DICTATED BY: Dany Cadena MD Test Reason : Blood Pressure : */* mmHG Vent. Rate : 81 BPM Atrial Rate : 81 BPM P-R Int : 190 ms QRS Dur : 90 ms QT Int : 394 ms P-R-T Axes : 58 -22 53 degrees QTcB Int : 457 ms Normal sinus rhythm Poor R wave progression, consider anterior ND vs. lead placement vs. LVH When compared with ECG of 11-Mar-2016 13:48, No significant change was found Confirmed by Dany Cadena ([id number]) on 03/30/2024 7:39:06 AM Chest X-Ray Date: 03/29/24 XR chest 1V portable CLINICAL HISTORY: neuro deficit, acute stroke suspected COMPARISON STUDY: Chest radiograph March 18, 2016. FINDINGS: Moderate elevation of the right hemidiaphragm has increased since prior chest radiograph. There is no pneumothorax or pleural effusion. There is no consolidation or evidence for pulmonary edema. Cardiomediastinal silhouette is unremarkable. IMPRESSION: 1. No acute cardiopulmonary findings. 2. Moderate elevation of the right hemidiaphragm, increased since chest radiograph of March 18, 2016. Echocardiogram Date: 03/30/24 Mild LVH LV wall motion is normal. LV systolic function is normal. EF 60-65% PA pressures 45mmHg (mildly elevated). Other Testing Brain MRI : EXAM: MR Head Without and With Intravenous Contrast CLINICAL HISTORY: Reason for exam: stroke like symptoms. TECHNIQUE: Magnetic resonance images of the head/brain without and with intravenous contrast in multiple planes. Moderate motion artifact. CONTRAST: Patient received 7.5mL Gadavist given IV of IV contrast COMPARISON: CT/CTA head earlier. FINDINGS: Brain: No mass effect or acute infarct. No acute hemorrhage. Mild atrophy and chronic white matter disease. No abnormal enhancement or mass. Ventricles: No hydrocephalus or midline shift. Bones/joints: No acute finding. Soft tissues: No scalp hematoma. Visualized Sinuses: Clear. Mastoid air cells: No mastoid effusion. IMPRESSION: 1. Mild age-related findings. 2. No abnormal enhancement, acute infarct, bleed, or acute intracranial abnormality.
--- OUTSIDE RECORDS SUMMARY | 2024-04-16 06:04 | External Medical Summary | Continuity of Care Document ---
Author Name Unknown Organization [facility] [address] Address [address] [place], [place] [id number] Care Team Providers Care Nutrition Educator Name Role Phone Gal Trevor Treadwell Primary Care Physician [phone] [id number] Date(s): 04/09/24 - 04/09/24 [facility] [address] [facility] [address] [facility], [address] [place], [place] [phone] Discharge Disposition: Home or Self Care Attending Physician: BETHANIE Fernández Lynn Referring Physician: BETHANIE Fernández Lynn Allergies, Adverse Reactions, Alerts Substance Criticality Severity Reaction Reaction Severity Status morphine Vomiting Active sodium hypochlorite topical liquid Unable to assess criticality Mild Active Medications acyclovir Start: 03/28/24 1:51:00 PM EDT, PRN Start Date: 03/28/24 Status: Ordered amLODIPine 2.5 mg oral tablet TAKE 1 TABLET BY MOUTH EVERY DAY Start Date: 05/31/22 Status: Ordered aspirin 81 mg oral delayed release tablet Start: 04/04/24 10:09:00 AM EDT, 1 tab, PO, Daily Start Date: 04/04/24 Status: Ordered atorvastatin 40 mg oral tablet Start: 04/04/24 10:19:00 AM EDT, 1 tab, PO, Daily Start Date: 04/04/24 Status: Ordered carvedilol 6.25 mg oral tablet TAKE 1 TABLET BY MOUTH TWICE A DAY WITH BREAKFAST AND DINNER Start Date: 05/31/22 Status: Ordered clobetasol 0.05% topical cream Start: 12/18/12 11:53:00 AM EDT, 1 appl, topical, bid, Disp# 30 g, Refills: 2, to affected area, do not use longer than 2 weeks, Pharmacy: [id number] Start Date: 12/18/12 Stop Date: 01/29/13 Status: Ordered clopidogrel 75 mg oral tablet Start: 04/04/24 10:10:00 AM EDT, 1 tab, PO, Daily Start Date: 04/04/24 Status: Ordered fluocinonide 0.05% topical solution Start: 06/01/23 10:47:00 AM EDT, See Instructions, Disp# 60 mL, Refills: 3, apply to scalp dermatitis bid as needed, PRN: rash, Pharmacy: [facility]/pharmacy #[id number] Start Date: 06/01/23 Status: Ordered Keflex 500 mg oral capsule Start: 04/04/24 10:26:00 AM EDT, 1 cap, PO, tid Start Date: 04/04/24 Status: Ordered Kerydin 5% topical solution Start: 01/23/24 3:28:00 PM EDT, 1 appl, topical, Daily, Disp# 10 mL, Refills: 6, Apply to affected toenails once per day for 6 months Start Date: 01/23/24 Stop Date: 07/02/30 Status: Ordered lisinopril 40 mg oral tablet Start: 05/06/15 10:36:00 AM EDT, 1 tab, PO, Daily, Start Date: 05/06/15 Status: Ordered magnesium oxide base 500 mg oral tablet Start: 05/31/22 10:53:00 AM EDT, 2 tab Start Date: 05/31/22 Status: Ordered metformin 500 mg oral tablet Start: 12/18/12 11:40:00 AM EDT, 1 tab, PO, bid Start Date: 12/18/12 Status: Ordered Systane Ultra ophthalmic solution Start: 05/31/22 10:55:00 AM EDT, bid Start Date: 05/31/22 Status: Ordered traZODone 100 mg oral tablet See Instructions, 0.5 tab po q HS Start Date: 05/31/22 Status: Ordered Problem List Condition Confirmation Course Effective Dates Status Health St atus Informant Toe amputee Confirmed Active Actinic keratosis Confirmed Active Arthritis of both feet Confirmed Active Bilateral carotid artery stenosis Confirmed Active Callus Confirmed Active DM (diabetes mellitus) Confirmed Active Elevated cholesterol Confirmed Active Hammertoe, bilateral Confirmed Active HTN (hypertension) Confirmed Active Diabetic neuropathy Confirmed Active Tinea unguium Confirmed Active Seborrheic keratosis Confirmed Active Pes planus of both feet Confirmed Active Pes planus of right foot Confirmed Active Skin ulcer of toe of left foot Confirmed Active Procedures Procedure Date Related Diagnosis Body Site Status History of repair of rotator cuff 12/2021 Completed Knee replacement Complete d Social History Social History Type Response Smoking Status Never smoked cigaret kahlil Sex Female Sex Representation Female (finding) Patient Care team information Care Team Personnel Name: BETHANIE Fernández Lynn Position: Physician Labor Delivery Specialist Exempt - Vasc Surg Member Role: Lifetime Relationship Address: [address] [place] [id number] [place] Name: MD Santo John E Position: Referring DIRECT Member Role: Primary Care Provider Address: [address] [place] [address] [place] Care Team Related Persons Name: ULISES ACUÑA
--- OUTSIDE RECORDS SUMMARY | 2024-04-16 06:04 | External Medical Summary | Continuity of Care Document ---
Author Name Unknown Organization [facility] [address] [facility] Address [address] [place], [place] [id number] Care Team Providers Care Nurse Specialist Name Role Phone GalTrevor Primary Care Physician [phone] [id number] Date(s): 04/04/24 - 04/04/24 [facility] [address], [address] [place] [address] [phone] Encounter Diagnosis Bilateral carotid artery stenosis(Discharge Diagnosis) - 04/04/24 Discharge Disposition: Home or Self Care Attending Physician: MD Sawyer Eugene J Allergies, Adverse Reactions, Alerts Substance Criticality Severity Reaction Reaction Severity Status morphine Vomiting Active sodium hypochlorite topical liquid Unable to assess criticality Mild Active Assessment and Plan Extracted from: Title:Clinical Document Author:BETHANIE Fernández Lynn Date:04/04/24 I OUTPATIENT NOTE Name: KENIA ACUÑA Patient Number: [id number] : 1940 Date of Service: 04/04/2024 Chief Complaint: _New patient consultation for symptomatic left ICA stenosis HPI: _Mrs. Acuña is an elderly female who presents to Dr. Sawyer's vascular surgery clinic today as a new patient in consultation for symptomatic left ICA stenosis. Patient states that she was at home in her normal state of health, and suddenly developed slurred/garbled speech, where she was unable to get the words out that she wanted to say. She states that the symptoms lasted about 30 minutes before resolving completely. She has had no previous similar symptoms in the past, nor has she had any TIAs prior to this. She denies any amaurosis, facial droop, unilateral extremity weakness numbness or tingling, or difficulty understanding her speaking to her. She did go to the emergency department, where she was found to have about 70% stenosis of her left ICA, and 60 to 70% stenosis of the right ICA on a neck CTA. Brain MRI did not demonstrate any CVA. She has had no recurrence of symptoms. She does ambulate with a rolling walker due to some right foot and ankle instability, and did strike her right medial hickey on something about 3 weeks ago. She states the area became somewhat reddened and developed a scab over it, and is healing but very slowly. She denies headache, fever, chest pain, shortness of breath, abdominal pain, nausea, vomiting, rest pain, claudication, other nonhealing wounds or ulcers, other complaints. Review of systems: A total of 14 systems were reviewed and are negative aside from what is related in her HPI Imaging: Neck CTA performed at [facility] demonstrates 60 to 70% stenosis of her bilateral ICAs, this appears somewhat worse in the left than the right. Brain MRI also performed at [facility] demonstrates no acute CVA. Current Home Meds: (Last Updated 04/04 10:26) acyclovir PRN amLODIPine (amLODIPine 2.5 mg oral tablet) TAKE 1 TABLET BY MOUTH EVERY DAY aspirin (aspirin 81 mg oral delayed release tablet) 81 mg PO Daily atorvastatin (atorvastatin 40 mg oral tablet) 40 mg PO Daily carvedilol (carvedilol 6.25 mg oral tablet) TAKE 1 TABLET BY MOUTH TWICE A DAY WITH BREAKFAST AND DINNER cephalexin (Keflex 500 mg oral capsule) 500 mg PO tid clobetasol topical (clobetasol 0.05% topical cream) 1 appl topical bid to affected area, do not use longer than 2 weeks clopidogrel (clopidogrel 75 mg oral tablet) 75 mg PO Daily fluocinonide topical (fluocinonide 0.05% topical solution) PRN: rash apply to scalp dermatitis bid as needed lisinopril (lisinopril 40 mg oral tablet) 40 mg PO Daily magnesium oxide (magnesium oxide base 500 mg oral tablet) 1,000 mg metformin (metformin 500 mg oral tablet) 500 mg PO bid ocular lubricant (Systane Ultra ophthalmic solution) bid tavaborole topical (Kerydin 5% topical solution) 1 appl topical Daily Apply to affected toenails once per day for 6 months traZODone (traZODone 100 mg oral tablet) 0.5 tab po q HS Allergies and Sensitivities: sodium hypochlorite topical liquid morphine(Vomiting) Past Medical History: Problems: Bilateral carotid artery stenosis Callus Tinea unguium Skin ulcer of toe of left foot Pes planus of both feet Hammertoe, bilateral Diabetic neuropathy DM (diabetes mellitus) Pes planus of right foot Arthritis of both feet Toe amputee Actinic keratosis Seborrheic keratosis Elevated cholesterol HTN (hypertension) Surgical history: Today for tonsillectomy, cholecystectomy, hysterectomy, bunionectomy, bowel resection, bilateral total knee arthroplasties Family history: Positive for stroke, hypertension Social history: Patient is a lifelong non-smoker, she does have an occasional alcoholic beverage usually in the form of wine. She denies any illicit drug use. She is and lives with her . OBJECTIVE Vitals: Last Updated 04/04/24 10:35 Date Temp BP Location Pulse RR SpO2 Pain 04/04/24 172/72 Right Arm 04/04/24 172/70 Left Arm 61 98 0 03/28/24 0 Vital Signs are the last 3 documented. No Orthostatic Data Available Height and Weight: Last Updated 03/28/24 13:53 Date BMI Wt(kg) Wt(lb) Method Ht(cm) (ft-in) Method 03/28/24 30.96 76.7 169 Standing Scale 157.4 5-2 12/08/23 30 76.8 169 Standing Scale 160 5-3 Standing 08/23/23 31.97 78.3 172 Standing Scale 156.5 5-1 Heights and Weights are the last 3 documented. Physical Exam Constitutional: In general patient is a healthy-appearing well-nourished well-developed elderly female in no distress. She is alert and oriented without focal deficits. Her eyes are EOMI, her trachea is midline. Her carotids demonstrate faint bruit. Her heart is regular, her lungs are decreased slightly but clear. Her abdomen is soft and nontender with no active bowel sounds in all 4 quadrants. Brachial and radial pulses are +3. Femoral pulses are +3. Right lower extremity DP pulses +2, PT is +1 and difficult to palpate due to ankle deformity. Left lower extremity DP and PT pulses are +2. She has brisk capillary refill and no sign of distal ischemia. She does have a scab on her right mid hickey, which is loosening of the ankles and beginning to heal. There is minimal local erythema here which is not expanding from a previous gasper placed a week ago. Is not particularly warm or odor or drainage noted. ASSESSMENT: _ PLAN: _ 1 ) _symptomatic left ICA stenosis Patient does have bilateral ICA stenosis, which appears somewhat worse on the left side than the right based on CTA. She unfortunately did suffer an episode of expressive aphasia lasting about 30 minutes 1 week ago. She was admitted to [facility] and started on DAPT, and her dose of atorvastatin was increased to 80 mg. Due to the symptomatic left ICA disease, we recommend that she undergo surgical intervention. Patient was also seen by Dr. Sawyer in the office today. The procedures, risks, benefits, alternatives of carotid endarterectomy versus TCAR were discussed at length with the patient, and her present. Patient elects to proceed with TCAR. The risks of the surgery including but not limited to CVA, heart attack, , bleeding, infection, local nerve injury, blood clots, or discussed at length with the patient and her . Patient expresses understanding and agreement to proceed. This to be scheduled in the next 2 weeks or so at patient's convenience. She is to remain on her DAPT, and is aware she will require this at least 1 year postoperatively. There advised to call any other questions or concerns. Thank you for letting us participate in the care of this patient. I have personally spent_49__ minutes performing [id number] and [id number]-[id number]-face activities on this date of service.Time does not include separately reported services. Activities Include: _x_ review of the medical record _x_ obtaining a history _x_ physical exam/evaluation _x_ review labs _x_ review radiology reports _x_ counseling/educating patient/family/caregiver __ discussion/referral to other healthcare professional _x_ documenting care in the medical record __ independent interpretation of results x__ communication of results to patient/family/caregiver x__ coordination of care Medications acyclovir Start: 03/28/24 1:51:00 PM EDT, [...] not use longer than 2 weeks, Pharmacy: [id number] Start Date: 12/18/12 Stop Date: 01/29/13 Status: Ordered clopidogrel 75 mg oral tablet Start: 04/04/24 10:10:00 AM EDT, 1 tab, PO, Daily Start Date: 04/04/24 Status: Ordered fluocinonide 0.05% topical solution Start: 06/01/23 10:47:00 AM EDT, See Instructions, Disp# 60 mL, Refills: 3, apply to scalp dermatitis bid as needed, PRN: rash, Pharmacy: [facility]/pharmacy #[id number] Start Date: 06/01/23 Status: Ordered Keflex 500 [...] q HS Start Date: 05/31/22 Status: Ordered Mental Status 04/04/24 Barriers to Learning one year None evide nt Mandatory Health Literacy Documentation Yes Health Literacy Communication Barriers N ever Primary Language Kyrgyz Problem List Condition Confirmation Course Effective Dates [...] of toe of left foot Confirmed Active Diagnosis Diagnosis Type Effective Dates Health Status Cl inical Service Informant Bilateral carotid artery stenosis Discharge Diagnosis 04/04/24 Procedures Procedure Date Related Diagnosis Body Site Status History of repair of rotator cuff 12/2021 Completed Knee replacement Complete d Vital Signs Most recent to oldest [Reference Range]: 1 2 Heart Rate 61 bpm (04/04/24 10:30 AM) Blood Pressure 172/72mmHg (04/04/24 10:35 AM) 172/70mmHg (04/04/24 10:30 AM) Cuff Pulse Pressure 100 mmHg (04/04/24 10:35 AM) 102 mmHg (04/04/24 10:30 AM) BP Location # 1 Right Arm (04/04/24 10:35 AM) Left Arm (04/04/24 10:30 AM) Social History Social History Type Response Smoking Status Never smoked cigaret kahlil Sex Female Sex Representation Female (finding) [facility] Outpt Note * BETHANIE Fernández Lynn: PERFORM Event Display: [facility] Outpt Note Authored Date: [id number] [facility] OUTPATIENT NOTE Name: KENIA ACUÑA Patient Number: [id number] : 1940 Date of Service: 04/04/2024 Chief Complaint: _New patient consultation for symptomatic left ICA stenosis HPI: _Mrs. Acuña is an elderly female who presents to Dr. Sawyer's vascular surgery clinic today as a new patient in consultation for symptomatic left ICA stenosis. Patient states that she was athome in her normal state of health, and suddenly developed slurred/garbled speech, where she was unable to get the words out that she wanted to say. She states that the symptoms lasted about 30 minutes before resolving completely. She has had no previous similar symptoms in the past, nor has she had any TIAs prior to this. She denies any amaurosis, facial droop, unilateral extremity weakness numbness or tingling, or difficulty understanding her speaking to her. She did go to the emergency department, where she was found to have about 70% stenosis of her left ICA, and 60 to 70% stenosis of the right ICA on a neck CTA. Brain MRI did not demonstrate any CVA. She has had no recurrence of symptoms. She does ambulate with a rolling walker due to some right foot and ankle instability, and did strike her right medial hickey on something about 3 weeks ago. She states the area became somewhat reddened and developed a scab over it, and is healing but very slowly. She denies headache, fever, chest pain, shortness of breath, abdominal pain, nausea, vomiting, restpain, claudication, other nonhealing wounds or ulcers, other complaints. Review of systems: A total of 14 systems were reviewed and are negative aside from what is related in her HPI Imaging: Neck CTA performed at [facility] demonstrates 60 to 70% stenosis of her bilateral ICAs, this appears somewhat worse in the left than the right. Brain MRI also performed at [facility] demonstrates no acute CVA. Current Home Meds: (Last Updated 04/04 10:26) acyclovir PRN amLODIPine (amLODIPine 2.5 mg oral tablet) TAKE 1 TABLET BY MOUTH EVERY DAY aspirin (aspirin 81 mg oral delayed release tablet) 81 mg PO Daily atorvastatin (atorvastatin 40 mg oral tablet) 40 mg PO Daily carvedilol (carvedilol 6.25 mg oral tablet) TAKE 1 TABLET BY MOUTH TWICE A DAY WITH BREAKFAST AND DINNER cephalexin (Keflex 500 mg oral capsule) 500 mg PO tid clobetasol topical (clobetasol 0.05% topical cream) 1 appl topical bid to affected area, do not uselonger than 2 weeks clopidogrel (clopidogrel 75 mg oral tablet) 75 mg PO Daily fluocinonide topical (fluocinonide 0.05% topical solution) PRN: rash apply to scalp dermatitis bid as needed lisinopril (lisinopril 40 mg oral tablet) 40 mg PO Daily magnesium oxide (magnesium oxide base 500 mg oral tablet) 1,000 mg metformin (metformin 500 mg oral tablet) 500 mg PO bid ocular lubricant (Systane Ultra ophthalmic solution) bid tavaborole topical (Kerydin 5% topical solution) 1 appl topical Daily Apply to affected toenails once per day for 6 months traZODone (traZODone 100 mg oral tablet) 0.5 tab po q HS Allergies and Sensitivities: sodium hypochlorite topical liquid morphine(Vomiting) Past Medical History: Problems: Bilateral carotid artery stenosis Callus Tinea unguium Skin ulcer of toe of left foot Pes planus of both feet Hammertoe, bilateral Diabetic neuropathy DM (diabetes mellitus) Pes planus of right foot Arthritis of both feet Toe amputee Actinic keratosis Seborrheic keratosis Elevated cholesterol HTN (hypertension) Surgical history: Today for tonsillectomy, cholecystectomy, hysterectomy, bunionectomy, bowel resection, bilateral total knee arthroplasties Family history: Positive for stroke, hypertension Social history: Patient is a lifelong non-smoker, she does have an occasional alcoholic beverage usually in the form of wine. She denies any illicit drug use. She is and lives with her . OBJECTIVE Vitals: Last Updated 04/04/24 10:35 Date Temp BP Location Pulse RR SpO2 Pain 04/04/24 172/72 Right Arm 04/04/24 172/70 Left Arm 61 98 0 03/28/24 0 Vital Signs are the last 3 documented. No Orthostatic Data Available Height and Weight: Last Updated 03/28/24 13:53 Date BMI Wt(kg) Wt(lb) Method Ht(cm) (ft-in) Method 03/28/24 30.96 76.7 169 Standing Scale 157.4 5-2 12/08/23 30 76.8 169 Standing Scale 160 5-3 Standing 01/24/24 31.97 78.3 172 Standing Scale 156.5 5-1 Heights and Weights are the last 3 documented. Physical Exam Constitutional: In general patient is a healthy-appearing well-nourished well- developed elderly female in no distress. She is alert and oriented without focal deficits. Her eyes are EOMI, her tracheais midline. Her carotids demonstrate faint bruit. Her heart is regular, her lungs are decreased slightly but clear. Her abdomen is soft and nontender with no active bowel sounds in all 4 quadrants. Brachial and radial pulses are +3. Femoral pulses are +3. Right lower extremity DP pulses +2, PT is +1 and difficult to palpate due to ankle deformity. Left lower extremity DP and PT pulses are +2. Shehas brisk capillary refill and no sign of distal ischemia. She does have a scab on her right mid laci n, which is loosening of the ankles and beginning to heal. There is minimal local erythema here which is not expanding from a previous gasper placed a week ago. Is not particularly warm or odor or drainage noted. ASSESSMENT: _ PLAN: _ 1 ) _symptomatic left ICA stenosis Patient does have bilateral ICA stenosis, which appears somewhat worse on the left side than the right based on CTA. She unfortunately did suffer an episode of expressive aphasia lasting about 30 minutes 1 week ago. She was admitted to [facility] and started on DAPT, and her dose of atorvastatin was increased to 80 mg. Due to the symptomatic left ICA disease, we recommend that she undergo surgical intervention. Patient was also seen by Dr. Sawyer in the office today. The procedures, risks, benefits, alternatives of carotid endarterectomy versus TCAR were discussed at length with the patient, and her present. Patient elects to proceed with TCAR. The risks of the surgery including but not limited to CVA, heart attack, , bleeding, infection, local nerve injury,blood clots, or discussed at length with the patient and her . Patient expresses understanding and agreement to proceed. This to be scheduled in the next 2 weeks or so at patient's convenience. She is to remain on her DAPT, and is aware she will require this at least 1 year postoperatively. There advised to call any other questions or concerns. Thank you for letting us participate in the care of this patient. I have personally spent_49__ minutes performing [id number] and [id number]-face activities on this date of service.Time does not include separately reported services. Activities Include: _x_ review of the medical record _x_ obtaining a history _x_ physical exam/evaluation _x_ review labs _x_ review radiology reports _x_ counseling/educating patient/family/caregiver __ discussion/referral to other healthcare professional _x_ documenting care in the medical record __ independent interpretation of results x__ communication of results to patient/family/caregiver x__ coordination of care Electronic Signature on File CC: Steven Waterman, [address] [facility] [id number] * Electronically Reviewed/Signed by: Isabel Fernández PA-C Author Signature Dt/Tm:04/04/2024 12:28 PM [facility] [place] [place] [address] LM Patient Care team information Care Team Personnel Name: BETHANIE Fernández, Isabel Position: Physician Laboratory Associate Exempt - Vasc Surg Member Role: Lifetime Relationship Address: [address] [place] [address] [place] Name: MD Santo John E Position: Referring DIRECT Member Role: Primary Care Provider Address: [address] [place] [address] [place] Care Team Related Persons Name: ULISES ACUÑA
--- OUTSIDE RECORDS SUMMARY | 2024-04-16 06:04 | External Medical Summary | Continuity of Care Document ---
Author Name Unknown Organization [facility] [address] Address [address] [place], [place] [id number] Care Team Providers Care Ladies Suit Operator Name Role Phone Gal Trevor Treadwell Primary Care Physician [phone] [id number] Date[facility]s): 04/12/24 - 04/12/24 [facility] [address] [facility] [address] [facility], [address] [place], [place] [phone] Encounter Diagnosis Occlusion and stenosis of bilateral carotid arteries(Final) - Discharge Disposition: Home or Self Care Attending [...] not use longer than 2 weeks, Pharmacy: [id number] Start Date: 12/18/12 Stop Date: 01/29/13 Status: Ordered clopidogrel 75 mg oral tablet Start: 04/04/24 10:10:00 AM EDT, 1 tab, PO, Daily Start Date: 04/04/24 Status: Ordered fluocinonide 0.05% topical solution Start: 06/01/23 10:47:00 AM EDT, See Instructions, Disp# 60 mL, Refills: 3, apply to scalp dermatitis bid as needed, PRN: rash, Pharmacy: [facility]/pharmacy #[id number] Start Date: 06/01/23 Status: Ordered Keflex 500 [...] cuff 12/2021 Completed Knee replacement Complete d Results Laboratory List Name Date Platelet Function (P2Y12 Receptor) (PLT FUNCTION P2Y12) 04/12/24 Most recent to oldest [Reference Range]: 1 P2Y12 Platelet Function [194-418 PRU] 26 PRU 1 *LOW* (04/12/24 10:08 AM) 1Result Comment: PRU reference range is 194-418 (healthy adults, no drug treatment). Post Drug Results: Lower PRU levels are expected following treatment with antiplatelet drugs. Post-treatment values are usually below the stated reference range above. The post-drug PRU values reported in the VerifyNOW P2Y12 package insert are 18-435. This broader range reflects the variability in drug response and is consistent with significant numbers of patients with decreased sensitivity to P2Y12 receptor antagonists (prasugrel or clopidogrel). Clinical studies suggest an on-treatment PRU>230 indicates less than optimal response to therapy, and PRU<208 at 12-24 hours after percutaneous intervention or during follow-up is associated with a lower risk of cardiovascular events (1). (1).Standard-vs high-dose clopidogrel based on platelet function testing after percutaneouscoronary intervention: the GRAVITAS randomized trial. Matias et al. JOSHUA. 2010October 13; 305(11): 2662-3348. 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
--- OUTSIDE RECORDS SUMMARY | 2024-04-16 06:05 | External Medical Summary | Continuity of Care Document ---
Author Name Unknown Organization [facility] [address] Address [address] [place], [place] [id number] Care Team Providers Care Wax Coating Machine Tender Name Role Phone Trevor Santo Primary Care Physician [phone] [id number] Date(s): 03/29/24 - 03/29/[address] [place], [place] [id number] [place] Discharge Disposition: Home or Self Care Attending Physician: MD Hodan, Aren Referring Physician: DO Topete Ryan M Allergies, Adverse Reactions, Alerts Substance Criticality Severity Reaction Reaction Severity Status morphine Vomiting Active sodium hypochlorite topical liquid Unable to assess criticality Mild Active Medications acyclovir Start: 03/28/24 1:51:00 PM EDT, PRN Start Date: 03/28/24 Status: Ordered amLODIPine 2.5 mg oral tablet TAKE 1 TABLET BY MOUTH EVERY DAY Start Date: 05/31/22 Status: Ordered atorvastatin 20 mg oral tablet TAKE 1 TABLET BY MOUTH EVERY DAY Start Date: 05/31/22 Status: Ordered carvedilol 6.25 mg oral tablet TAKE 1 TABLET BY MOUTH TWICE A DAY WITH BREAKFAST AND DINNER Start Date: 05/31/22 Status: Ordered clobetasol 0.05% topical cream Start: 12/18/12 11:53:00 AM EDT, 1 appl, topical, bid, Disp# 30 g, Refills: 2, to affected area, do not use longer than 2 weeks, Pharmacy: [id number] Start Date: 12/18/12 Stop Date: 01/29/13 Status: Ordered fluocinonide 0.05% topical solution Start: 06/01/23 10:47:00 AM EDT, See Instructions, Disp# 60 mL, Refills: 3, apply to scalp dermatitis bid as needed, PRN: rash, Pharmacy: [facility]/pharmacy #[id number] Start Date: 06/01/23 Status: Ordered Kerydin 5% topical solution Start: 08/23/23 9:57:00 AM EST, See Instructions, Disp# 10 mL, Refills: 6, Apply to affected toenailfor at least 6 months Start Date: 08/23/23 Status: Ordered Kerydin 5% topical solution Start: 08/29/23 12:24:00 PM EST, See Instructions, Disp# 10 mL, Refills: 6, Apply to affected toenails once per day for 6 months, Pharmacy: [facility]/pharmacy #[id number] Start Date: 08/29/23 Status: Ordered Kerydin 5% topical solution Start: [...] PO, bid Start Date: 12/18/12 Status: Ordered minocycline 100 mg oral capsule Start: 03/18/13 1:45:00 PM EDT, 1 cap, PO, bid, Disp# 20 cap, Refills: 1, Pharmacy: [id number] Start Date: 03/18/13 Status: Ordered Neurontin 300 mg oral capsule Start: 05/06/14 1:51:00 PM EDT, 1 cap, PO, bid, takes only as needed. 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
--- OUTSIDE RECORDS SUMMARY | 2024-04-16 06:05 | External Medical Summary | Summary of Care ---
Author Name Unknown Organization [facility] Address [address] [place] [address] Phone [phone] Care Team Providers Care Emergency Care Attendant Name Role Phone Steven Waterman DO Primary Care Provider [phone] Reason for Visit * Reason Onset Date Comments Test Results 04/03/202404/03 Encounter Details Date Type Department Care Team (Late st Contact Info) Description 04/03/2024 Telephone Family Practice [address] [facility] [address] [place] [phone] Steven Waterman DO [address] [place], [place] [phone] Test Results (04/03) Allergies Active Allergy Reactions Criticality Noted Date Comments Glutaral Rash 08/16/2018 Itchy, dry scabs Morphine Sulfate 06/02/2006 vomiting Cholestyramine 10/05/2021 NAUSEA AND VOMITING documented as of this encounter (statuses as of 04/03/2024) Medications Medication Sig Dispensed Refills Start Date End Date Status Polyethyl Glycol-Propyl Glycol 0.4-0.3 % Ophthalmic Solution Instill 1 Drop into both eyes in the morning and 1 Drop before bedtime. Active Desonide 0.05 % creamIndications: Allergic dermatitis due to other chemical product APPLY TO RASH ON THE FACE & ARMS TWO TIMES A DAY NEEDED FOR FLARES 60 g 1 09/23/2019 Active Fluocinonide 0.05 % external solutionIndicatio ns:Allergic dermatitis due to other chemical product APPLY [...] 10/03/2022 Clobetasol Propionate 0.05 % External Cream (Temovate)Indicat ions:Dermatitis APPLY TO RASH ON THE ARMS AND BODY TWICE DAILY FOR 1 WEEK NEEDED FOR FLARES 60 g 1 09/23/2021 Active Acetaminophen 500 MG Oral Tablet (Tylenol) Take 1 Tablet by mouth every 6 hours as needed for Pain, Moderate. 100 Tablet 12/07/2021 Active Ibuprofen 200 MG Oral Tablet (Advil) Take 1 Tablet by mouth every 4 hours as needed. Active Lisinopril 40 MG Oral TabletIndications :HTN, goal below 140/90 TAKE 1 TABLET BY MOUTH EVERY DAY 90 Tablet 3 09/26/2023 Active traZODone HCl 100 MG Oral Tablet (Desyrel) TAKE 1 TABLET BY MOUTH EVERYDAY AT BEDTIME 90 Tablet 2 11/08/2023 Active Carvedilol 6.25 MG Oral Tablet (Coreg)Indication s:HTN, goal below 140/90 TAKE 1 TABLET BY MOUTH TWICE A DAY WITH BREAKFAST AND DINNER 180 Tablet 1 11/17/2023 Active Tavaborole 5 % External Solution APPLY TOPICALLY TO AFFECTED TOENAILS ONCE DAILY FOR 48 WEEKS (6 MONTHS) Active metFORMIN HCl ER 500 MG Oral Tablet Extended Release 24 Hour (Glucophage XR)Indications:Ty pe 2 diabetes mellitus with diabetic peripheral angiopathy [...] 02/29/2024 Active Cephalexin 500 MG Oral Capsule (Keflex)Indicatio ns:Cellulitis of right lower extremity Take 1 Capsule by mouth in the morning and 1 Capsule at noon and 1 Capsule before bedtime. Do all this for 10 days. 30 Capsule 03/29/2024 04/08/2024 Active Clopidogrel Bisulfate 75 MG Oral Tablet (pLAVix) Take 1 Tablet by mouth in the morning. 03/31/2024 Active Atorvastatin Calcium 40 MG Oral Tablet (Lipitor)Indicati ons:Dyslipidemia Take 1 Tablet by mouth in the morning. 90 Tablet 3 04/02/2024 Active Aspirin 81 MG Oral Tablet Delayed ReleaseIndication s:History of TIA (transient ischemic attack) Take 1 Tablet by mouth in the morning. 100 Tablet 3 04/02/2024 Active documented as of this encounter (statuses as of 04/03/2024) Active Problems Problem Noted Date Diagnosed Date Bilateral carotid artery stenosis 04/02/2024 History of TIA (transient ischemic attack) 04/02 SIADH (syndrome of inappropriate ADH production) 04/02/2024 Nontraumatic complete tear of left rotator cuff [...] as of this encounter (statuses as of 04/03/2024) Resolved Problems Problem Noted Date Diagnosed Date [...] protocol #16. HTN, goal to be determined 11/07/200608/23/2008 Overview: Modified per HTN protocol #16. Type 2 diabetes mellitus wit h hemoglobin A1c goal of less than 7.0% 11/07/2006 05/28/2009 Overview: Per Diabetes Taxonomy. ICD-10 update of inactive term Anticoagulation management encounter 09/06/2006 09/17/2016 OSTEOARTHROS NOS-L-LEG 05/13/200308/15 documented as of this encounter (statuses as of 04/03/2024) Immunizations Name Administration Dates Next Due COVID-19 [...] Dos e, Trivalent, PF, IM (Fluzone HD) 04/02/2024,04/07/2022,04/07/2021,05/06,04/28/2017,05/04/2016 Seasonal Influenza, Quadriva lent Hd (Fluzone Hd) [...] 04/04/2023 Does the household have a re lar source of income? (Household - for ages [...] on file documented as of this encounter Miscellaneous Notes * Telephone Encounter - Hawa Ayala LPN - 04/03/2024 1:16 PM EDT Call placed to patient and relayed information from Dr. Waterman. Pt acknowledged understanding and states she will comply. Lab order pended. * Telephone Encounter - Hawa Ayala LPN - 04/03/2024 1:12 PM EDT ----- Message from Steven Waterman DO sent at 04/03/2024 8:45 AM EDT ----- Sodium is still low Continue 45 oz fluid restriction Repeat BMP in 1 week Trazodone dose decreased at visit. documented in this encounter Plan of Treatment Upcoming Encounters Date Type Department Care Team (Late st Contact Info) Description 04/23/2024 10:45 AM EDT Office Visit [facility] [address] [place] [phone] Shekhar Gordillo MD [address] [place] [address] 04/30/2024 11:20 AM EDT Office Visit Nephrology, [facility] [address] [place] [address] Maryam Gordon MD [address] [place] [address] 05/02/2024 10:00 AM EDT Office Visit [facility] [address] [place] [address] Thomas Barros PA-C [address] [place] [address] 06/04/2024 10:40 AM EST Office Visit Family Practice 65 [facility] [address] [place] [phone] Steven Waterman DO [address] [place] [address] 10/04/2024 1:00 PM EST Nurse Only Ancillary [address] [address] [employer], Nurse Annual Wellness Visit [address] [address] Scheduled Orders Name Type Priority Associated Diagnoses Orde r Schedule BASIC METABOLIC PANEL Lab Routine Low sodium levels Expected: 04/10/2024 (Approximate), Expires: 04/03/2025 Health Maintenance Due Date Last Done Comments DXA Scan 03/14/2022 03/14/2018, 080 12/2013, 04/02/2010, Additional history exists HbA1c 07/27/2024 01/26/2024, 08/31, 05/08/2023, Additional history exists DTap/Tdap Vaccines (2 - Td or Tdap) 09/01/2024 09/01/2014, 06/26/2007 Adult Wellness Visit 10/01/2024 10/02/2023, 09/30/19 23 Depression Screening 10/01/2024 10/02/2023 Albumin/Creatinine Ratio 01/25/2025 024, 03/27/2023, 06/17/2022, Additional history exists Diabetic Foot Exam 03/04/2025 03/04/2024, 0 04/04/2023, 02/11/2022, Additional history exists Diabetic Eye Exam 03/20/2025 03/20/2024, , 03/15/2023, Additional history exists GFR 04/02/2025 04/02/2024, 12/30, 10/27/2023, Additional history exists Pneumococcal Vaccine: 65+ Years Completed 10/16/2015, 09/01/2014, 11/15/2005 Zoster Vaccines Completed 01/19/2018, 0410/2017, 06/30/2006 COVID-19 Vaccine Completed 01/29/2024, , 05/03/2022, Additional history exists Influenza Vaccine (FLU shot) Completed 09/2023, 04/04/2023, 04/07/2022, Additional history exists HPV (Gardasil) Vaccine Aged Out No lo nger eligible based on patient's age to complete this topic Hepatitis B Vaccine Aged Out No longe r eligible based on patient's age to complete this topic MENINGOCOCCAL (MENACTRA/MENVEO) Aged Out No longer eligible based on patient's age to complete this topic documented as of this encounter Medical Devices Implanted Type Area Circus Trainer Device Identifier Shelf Expiration Date Model / Serial / Lot Biocomposite Knotless Corkscrew Suture Sandy Implanted:Qty: 4 on 01/14/2022 by Fernando Armstrong, DO at OR [facility] Right: Shoulder [employer] 04/29/2023 [id number] / / [id number] Suture Sandy, Biocomposite Swivelock With Closed Peek Eyelet Implanted:Qty: 1 on 01/14/2022 by Fernando Armstrong DO at OR [facility] Right: Shoulder 07/30/2025 AR-2324BCC TT / / [id number] Suture Sandy, Biocomposite Swivelock With Closed Peek Eyelet Implanted:Qty: 1 on 01/14/2022 by Fernando Armstrong DO at OR [facility] Right: Shoulder 07/30/2025 AR-2324BCC T / / [id number] Graft Arthroflex [id number] (28 Units) - [id number] - [id number] Implanted:Qty: 1 on 01/14/2022 by Fernando Armstrong DO at OR [facility] Right: Shoulder [employer] 07/15/2022 [id number] / [id number] / [id number] Biocomposite Knotless Swivelock Sandy Implanted:Qty: 1 on 01/14/2022 by Fernando Armstrong DO at OR [facility] Right: Shoulder [employer] 10/28/2025 AR-[id number] C / / [id number] Biocomposite Knotless Swivel Lock Sandy Implanted:Qty: 1 on 01/14/2022 by Fernando Armstrong DO at OR [facility] Right: Shoulder [employer] 10/28/2025 AR-[id number] / / [id number] documented as of this encounter Visit Diagnoses Diagnosis Low sodium levels- Primary Hyposmolality and/or hyponatremia documented in this encounter Care Teams Emergency Care Attendant Relationship Specialty Start Date End Date Steven Waterman DO [address] [place] [address] PCP - General Internal Medicine 01/12/24 documented as of this encounter
--- OUTSIDE RECORDS SUMMARY | 2024-04-16 06:05 | External Medical Summary | Continuity of Care Document ---
Author Name Unknown Organization [facility] [id number] Address [address] [place] [phone] Care Team Providers Care Security System Analyst Name Role Phone Trevor Santo Primary Care Physician [phone] [id number] Date(s): 03/28/24 - 03/28/[address] [facility] [address] [facility] [address] [facility] Medicine [address] [place] [address] Encounter Diagnosis DM (diabetes mellitus)(Discharge Diagnosis) - 03/26/24 Diabetic neuropathy(Discharge Diagnosis) - 03/26/24 Hammertoe, bilateral(Discharge Diagnosis) - 03/26/24 Pes planus of both feet(Discharge Diagnosis) - 03/26/24 Skin ulcer of toe of left foot(Discharge Diagnosis) - 03/26/24 Tinea unguium(Discharge Diagnosis) - 03/26/24 Callus(Discharge Diagnosis) - 03/26/24 Discharge Disposition: Home or Self Care Attending Physician: SONAL Pichardo Christina L Referring Physician: MD Santo John E Allergies, Adverse Reactions, Alerts Substance Criticality Severity Reaction Reaction Severity Status morphine Vomiting Active sodium hypochlorite topical liquid Unable to assess criticality Mild Active Assessment and Plan Extracted from: Title:Follow Up Visit Author:SONAL Pichardo, Andria Tejada Date:03/28/24 1.DM (diabetes mellitus) Patient is a moderate risk diabetic wearing orthopedic shoes all ulcerations have been here 2.Diabetic neuropathy 3.Hammertoe, bilateral 4.Pes planus of both feet Will follow-up for evaluation of ankleand pes planus patient has never had evaluationand was being seen in [facility] for this issue. 5.Skin ulcer of toe of left foot Ulceration is healed 6.Tinea unguium -Patient unable to provide self care to toenails due todiabetes - verbal consent obtained for debridement -Recommend toenail debridement -Patient had toenails ofdigits 1 and 5 left foot and digits1 4 and 5 right foot debrided using nail nippers to tolerance, no bleeding noted -Patient instructed to use emery board to nails once per week -Patient had no ingrown toenails or infection noted -Patient is to follow up in 5 months for treatment if needed in the future 7.Callus No callus present Medications acyclovir Start: 03/28/24 1:51:00 PM EDT, [...] not use longer than 2 weeks, Pharmacy: [id number] Start Date: 12/18/12 Stop Date: 01/29/13 Status: Ordered fluocinonide 0.05% topical solution Start: 06/01/23 10:47:00 AM EDT, See Instructions, Disp# 60 mL, Refills: 3, apply to scalp dermatitis bid as needed, PRN: rash, Pharmacy: [facility] #[id number] Start Date: 06/01/23 Status: Ordered Kerydin 5% topical solution Start: 08/23/23 9:57:00 AM EST, See Instructions, Disp# 10 mL, Refills: 6, Apply to affected toenailfor at least 6 months Start Date: 08/23/23 Status: Ordered Kerydin 5% topical solution Start: 08/29/23 12:24:00 PM EST, See Instructions, Disp# 10 mL, Refills: 6, Apply to affected toenails once per day for 6 months, Pharmacy: [facility] #[id number] Start Date: 08/29/23 Status: Ordered Kerydin [...] bid, Disp# 20 cap, Refills: 1, Pharmacy: [id number] Start Date: 03/18/13 Status: Ordered Neurontin 300 [...] AT BEDTIME Start Date: 05/31/22 Status: Ordered Mental Status 03/28/24 Barriers to Learning one year None evide nt Mandatory Health Literacy Documentation Yes Health Literacy Communication Barriers N ever Primary Language Guamanian Problem List Condition Confirmation Course Effective Dates [...] Diagnosis Diagnosis Type Effective Dates Health Status Clinical Service Informant DM (diabetes mellitus) Discharge Diagnosis 03/26/24 Non-Specified Tinea unguium Discharge Diagnosis 03/26/24 Non-Specified Diabetic neuropathy Discharge Diagnosis 03/26/24 Non-Specified Hammertoe, bilateral Discharge Diagnosis 03/26/24 Non-Specified Skin ulcer of toe of left foot Discharge Diagnosis 03/26/24 Non-Specified Callus Discharge Diagnosis 03/26/24 Non-Specified Pes planus of both feet Discharge Diagnosis 03/26/24 Non-Specified Procedures Procedure Date Related Diagnosis Body Site Status History of repair of rotator cuff 12/2021 Completed Knee replacement Complete d Vital Signs Most recent to oldest [Reference Range]: 1 Height 157.4 cm (03/28/24 1:53 PM) Patient Weight 76.7 kg (03/28/24 1:53 PM) Body Mass Index 30.96 kg/m2 (03/28/24 1:53 PM) Social History Social History Type Response Smoking Status Never smoked cigaret kahlil Sex Female Sex Representation Female (finding) Ortho Outpt Note * SONAL Pichardo, Tana Tejada: PERFORM Event Display: Ortho Outpt Note Authored Date: [id number] Chief Complaint FOOT CHECK UP,, WOUND CHECK UP Primary Care Provider MD Gal, Trevor Mora Patient is a very pleasant 83-year-old female presenting today for follow-up evaluation. She has a history of toenail fungusof the right great toe she was having increased pain in the left footsecond toeshe developed a small ulcershe also wanted her AFO braces evaluated. Her does provide wound care dressingsfor the ulcer on the lateral aspect of the left second toeas well as care for the preulcerative callus on the left foot third toeat last visit with me on January 23, 2024 patient was doing well. -Patient did provide and [facility] off[facility] her feetshe was happy to report that her ulcers have all been healedon the left footshe has no acute concerns today. Review of Systems Diabetes Objective Vitals & Measurements WT:76.7kg WT:76.700kg(Dosing) Physical Exam Problem focused bilateral feet: Dorsalis pedis pulse palpable 1 out of 4, posterior tibial pulse palpable 1 out of 4, capillary refill time less than 3 seconds, skin turgor is good to all digitsof both feet pedal hair is present. Monofilament test absent distal extremities, light touch absent distal extremities, proprioception absent distal extremities There is a history of a left foot second, thirdtoeand fourth toe distal Symesamputation. 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 Toenails of [id number] 5 left foot with elongation, dystrophy, discoloration and pain recommenddebridement No callus is present in need of debridement today. Assessment/Plan 1.DM (diabetes mellitus) Patient is a moderate risk diabetic wearing orthopedic shoes all ulcerations have been here 2.Diabetic neuropathy 3.Hammertoe, bilateral 4.Pes planus of both feet Will follow-up for evaluation of ankleand pes planus patient has never had evaluationand was being seen in [facility] for this issue. 5.Skin ulcer of toe of left foot Ulceration is healed 6.Tinea unguium -Patient unable to provide self care to toenails due todiabetes - verbal consent obtained for debridement -Recommend toenail debridement -Patient had toenails ofdigits 1 and 5 left foot and digits1 4 and 5 right foot debrided using nail nippers to tolerance, no bleeding noted -Patient instructed to use emery board to nails once per week -Patient had no ingrown toenails or infection noted -Patient is to follow up in 5 months for treatment if needed in the future 7.Callus No callus present Electronic Signature on File Electronically Reviewed/Signed by: Tana Pichardo DPM Author Signature Dt/Tm:03/28/2024 02:23 PM Division of Sports Medicine CLR * SONAL Pichardo, Tana Tejada: PERFORM Event Display: Ortho Outpt Note Authored Date: [id number] Name:KENIA ACUÑA Patient Number:[id number] :[id number] Date of Service:03/26/2024 Patient was a no-show today. Electronic Signature on File Electronically Reviewed/Signed by: Tana Pichardo DPM Author Signature Dt/Tm:03/26/2024 11:47 AM Division of Sports Medicine CLR Patient Care team information Care Team Personnel Name: MD Gal, Trevor Treadwell Position: Referring DIRECT Member Role: Primary Care Provider Address: [address] [place] [address] [place] Care Team Related Persons Name: ULISES ACUÑA
--- OUTSIDE RECORDS SUMMARY | 2024-04-16 06:05 | External Medical Summary ---
Author Name Unknown Address Unknown Organization [id number]:[facility] [place] - [address] [facility] [address] Laboratory Report Ordering Provider Test Date Status CHARITY MIKE 04/02/2024 17:02:06 Final Observation Date Value Abnormality Reference (Units ) Status BUN 04/02/2024 17:02:06 14 6-20 (mg/dL) Final Creatinine 04/02/2024 17:02:06 1.0 0.5-1.0 (mg/dL) Final Glomerular filtration rate/1.73 sq M.predicted [Volume Rate/Area] in Serum, Plasma or Blood by Creatinine-based formula (CKD-EPI) 04/02/2024 17:02:06 59 Below low normal >=60 (mL/min) Final eGFR is calculated based on the CKD-EPI 2020 equation. Sodium 04/02/2024 17:02:06 131 Below low normal 135 -146 (mmol/L) Final Potassium 04/02/2024 17:02:06 3.8 3.5-5.1 (m mol/L) Final Cl 04/02/2024 17:02:06 95 Below low normal 98- 107 (mmol/L) Final CO2 04/02/2024 17:02:06 21 Below low normal 22- 32 (mmol/L) Final Anion gap 04/02/2024 17:02:06 15 7-15 (mmol /L) Final Glucose 04/02/2024 17:02:06 132 Above high normal 70 -120 (mg/dL) Final Albumin 04/02/2024 17:02:06 4.6 3.8-5.0 (g /dL) Final AST (Aspartate aminotransferase) 04/02/2024 17:02:06 32 10-35 (U/L) Fin al Alk Phos 04/02/2024 17:02:06 86 35-130 (U/ L) Final Bilirubin, Total 04/02/2024 17:02:06 0.9 <=1 .2 (mg/dL) Final Calcium 04/02/2024 17:02:06 9.8 8.4-10.2 ( mg/dL) Final Protein 04/02/2024 17:02:06 6.6 6.0-8.3 (g /dL) Final ALT (Alanine aminotransferase) 04/02/2024 17:02:06 21 10-35 (U/L) Bo velasquez Performing Location [facility] [place] - [facility] [address] [facility] [id number]
--- OUTSIDE RECORDS SUMMARY | 2024-04-16 06:05 | External Medical Summary | Summary of Care ---
Author Name Unknown Organization [facility] Address [address] [place] [address] Phone [phone] Care Team Providers Care Production Sanitizer Name Role Phone Steven Waterman DO Primary Care Provider [phone] Reason for Referral * Evaluate & Treat - Unlimited Visits (Within 10 days (routine)) - Authorized Specialty Diagnoses / Procedures Referred By Contact Referred To Contact Vascular Surgery / Cardiovascular Surgery Diagnoses Bilateral carotid artery stenosis Steven Waterman DO [address] [place] [address] Referral ID Status Reason Start Date Expiration Date Visits Requested Visits Authorized [id number] Authorized Specialty Services Required 04/02/2024 999 999 Question Answer Referral Priority Within 10 days (routine) Where should this appointment be scheduled? Eric What condition is the patient being seen for? Carotid stenosis / Bruit / TIA / CVA Reason for Visit * Reason Onset Date Comments Hospital Follow-Up Hospital Follow-Up 04/02/2024 Encounter Details Date Type Department Care Team (Latest Contact Info) Description 04/02/2024 3:40 PM EDT Office Visit Family Practice [address] [place] [address] [place] [address] Steven Waterman DO [address] [place] [address] History of TIA (transient ischemic attack)*; 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); Expressive aphasia; Bilateral carotid artery stenosis; Type 2 diabetes mellitus with hemoglobin A1c goal of less than 7.0% ([facility]); Type 2 diabetes mellitus with diabetic peripheral angiopathy without gangrene, without long-term current use of insulin ([facility]); History of partial amputation of toe of left foot ([facility]); HTN, goal below 140/90; Dyslipidemia; Leg wound, right, sequela; Gastroesophageal reflux disease without esophagitis; Anxiety, generalized; Hospital discharge follow-up Allergies Active Allergy Reactions Criticality Noted Date [...] this for 10 days. 30 Capsule 03/29/2024 Active Clopidogrel Bisulfate 75 MG Oral Tablet [...] the morning. 100 Tablet 3 04/02/2024 Active Atorvastatin Calcium 20 MG Oral Tablet (Lipitor) TAKE 1 TABLET BY MOUTH EVERY DAY 90 Tablet 3 07/25/2023 4 Discontinue d(Medicatio n/Dose Changed) Omeprazole 20 MG Oral Capsule Delayed Release (PriLOSEC)Indicat ions:Gastroesopha geal reflux disease without esophagitis TAKE 1 CAPSULE BY MOUTH EVERY DAY IN THE MORNING 1 HOUR PRIOR TO FIRST MEAL 90 Capsule 3 01/18/2024 4 Discontinue d(Medicatio n/Dose Changed) Aspirin 81 MG Oral Tablet Delayed Release Take 1 Tablet by mouth in the morning. 4 Discontinue d(Refill) documented as of this encounter (statuses as [...] Sign Reading Time Taken Comments Blood Pressure 134/60 04/02/2024 3:52 PM EDT Pulse 84 04/02/2024 3:52 PM EDT Temperature 36 C (96.8 F) 04/02/2024 3:52 PM EDT Respiratory Rate 20 04/02/2024 3:52 PM EDT Oxygen Saturation 98% 04/02/2024 3:52 PM EDT Inhaled Oxygen Concentration - - Weight 74.6 kg (164 lb 8 oz) 04/02/2024 3:52 PM EDT Height 157.5 cm (5' 2") 04/02/2024 3:52 PM EDT Body Mass Index 30.09 04/02/2024 3:52 PM EDT documented in this encounter Progress Notes * Monique Morin RN - 04/02/2024 5:02 PM EDT LAB DRAWN AND SENT TO [facility]. * Steven Waterman, - 04/02/2024 4:25 PM EDT SUBJECTIVE: Zeina Mahmood is a 83 year old female. Chief Complaint Patient presents with Hospital Follow-Up Hospital Follow-Up Recent Admission: Patient was recently admitted to [facility]. The date of discharge was 03/31/2024. Discharge report received and reviewed. HPI: Patient is an 83 year old female with a history of DM type II, HTN, Hyperlipidemia, CKD stage III, GERD, PVD, bilateral knee replacement, and multiple procedures on her feet that is seen for hospitalfollow up. The patient was admitted to [facility] 03/29/2024- 03/31/2024. The patient was admitted to [facility] for TIA. The patient had aphasia for 30 minutes that resolved without treatment. No CVA was present on MRI of brain. Bilateral 60-70 % ICA stenosis was present on CTA head and neck. Sodium was low and nephrology recommended stopping Trazodone and 1500 cc daily fluid restriction. The patient has not had further difficulty with speech. No chest pain or shortness of breath are present. Weight is down a nd appetite is fair. Patient Active Problem List Diagnosis ADVANCE DIRECTIVE INFORMATION Knee joint replacement status Type 2 diabetes mellitus with hemoglobin A1c goal of less than 7.0% ([facility]) HTN, goal below 140/90 Type 2 diabetes mellitus with diabetic peripheral angiopathy without gangrene, without long-term current use of insulin ([facility]) Acquired absence of other left toe(s) ([facility]) History of partial amputation of toe of left foot ([facility]) Dyslipidemia Gastroesophageal reflux disease without esophagitis Anxiety, generalized Purpura senilis ([facility]) Nontraumatic complete tear of left rotator cuff Bilateral carotid artery stenosis History of TIA (transient ischemic attack) SIADH (syndrome of inappropriate ADH production) ([facility]) Current Outpatient Medications Medication Sig Dispense Refill [...] as needed for Pain,Moderate. 100 Tablet 0 Ibuprofen 200 MG Oral Tablet (Advil) Take [...] MOUTH TWICE A DAY WITH BREAKFAST AND [id number] Tablet 1 metFORMIN HCl ER 500 MG Oral Tablet [...] this for 10 days. 30 Capsule 0 Clopidogrel Bisulfate 75 MG Oral Tablet (pLAVix) Take 1 Tablet by mouth in the morning. Aspirin 81 MG Oral Tablet Delayed Release Take 1 Tablet by mouth in the morning. Polyethyl Glycol-Propyl Glycol 0.4-0.3 % Ophthalmic Solution [...] No current facility-administered medications for this visit. Current and discharge medications have been reconciled. Review of patient's allergies indicates: Allergen Reactions Glutaraldehyde [Glutaral] Rash Itchy, dry scabs Morphine Sulfate vomiting Questran [Cholestyramine] NAUSEA AND VOMITING OBJECTIVE: BP 134/60 | Pulse 84 | Temp 36 C (96.8 F) | Resp 20 | Ht 1.575 m (5' 2") | Wt 74.6 kg (164 lb 8oz) | SpO2 98% | BMI 30.09 kg/m | BSA 1.81 m REVIEW OF SYSTEMS: Review of Systems Constitutional: Positive for fatigue. Negative for appetite change and unexpected weight change. HENT: Negative for congestion, sore throat and trouble swallowing. Respiratory: Negative for cough, shortness of breath and wheezing. Cardiovascular: Negative for chest pain, palpitations and leg swelling. Gastrointestinal: Negative for abdominal pain, blood in stool, constipation, diarrhea, nausea and vomiting. Genitourinary: Negative for dysuria, frequency and hematuria. Musculoskeletal: Negative for back pain and gait problem. Skin: Healing right hickey lesion Neurological: Negative for dizziness, speech difficulty, weakness and headaches. Psychiatric/Behavioral: Negative for confusion, decreased concentration and sleep disturbance. PHYSICAL EXAM: BP 134/60 | Pulse 84 | Temp 36 C (96.8 F) | Resp 20 | Ht 1.575 m (5' 2") | Wt 74.6 kg (164 lb 8oz) | SpO2 98% | BMI 30.09 kg/m | BSA 1.81 m Physical Exam Vitals and nursing note [...] soft. Tenderness: There is no abdominal tenderness. Skin: Comments: Right hickey lesion is healing Neurological: Mental Status: She is alert and oriented to person, place, and time. Mental status is at baseline. Motor: No weakness. Gait: Gait normal. Psychiatric: Mood and Affect: Mood normal. Behavior: Behavior normal. Thought Content: Thought content normal. ASSESSMENT/PLAN History of TIA (transient ischemic attack) (Primary) Continue ASA Clopidogrel for 18 more days. SIADH (syndrome of inappropriate ADH production) ([facility]) Check CMP today Schedule with Nephrology Decrease Trazodone to 50 mg daily Expressive aphasia Resolved Bilateral carotid artery stenosis Patient scheduled to see Vascular Surgery on 04/03/2024 Type 2 diabetes mellitus with hemoglobin A1c goal of less than 7.0% (HCC) Continue Metformin Type 2 diabetes mellitus with diabetic peripheral angiopathy without gangrene, without long-term current use of insulin (HCC) Continue Metformin History of partial amputation of toe of left foot (HCC) HTN, goal below 140/90 Continue Carvedilol, Amlodipine, and Lisinopril Dyslipidemia Atorvastatin increased to 40 mg daily while hospitalized Leg wound, right, sequela Schedule with Wound Care Finish Cephalexin Gastroesophageal reflux disease without esophagitis Anxiety, generalized Hospital discharge follow-up - DISCH MED RECON CUR MED LIS Other orders - INFLUENZA VAC., TRIVALENT, HD, PF, 65 AND ABOVE, 0.5 ML IM (FLUZONE HD) Follow Up: Return in about 1 month (around 05/02/2024), or if symptoms worsen or fail to improve. Steven Waterman DO documented in this encounter Nursing Notes * Hawa Ayala LPN - 04/02/2024 5:00 PM EDT 04/02/24 5:01 PM Date to Remove: 04/16/24 Time to Remove: 5:10 p.m. Serial Number: [id number] Ordering Provider: Dr. Steven Ayala LPN Zio patch applied in clinic, as per provider orders. Patient instructed on use. * Monique Navarro LPN - 04/02/2024 3:51 PM EDT Hospital follow up, feels well. Gets nauseated on plavix documented in this encounter Miscellaneous Notes * Result Encounter Note - Hawa Ayala LPN - 04/03/2024 1:17 PM EDT Spoke to patient - see telephone encounter. documented in this encounter Plan of Treatment Upcoming Encounters Date Type Department Care Team (Late st Contact Info) Description 04/23/2024 10:45 AM EDT Office Visit Orthopaedics Ethel Delvalle [address] [place] [phone] Shekhar Gordillo MD [address] [place] [address] 04/30/2024 11:20 AM EDT Office Visit Nephrology, Eugenia Arias [address] [place] [address] Maryam Gordon MD [address] [place] [address] 05/02/2024 10:00 AM EDT Office Visit Orthopaedics [facility] [address] [place] [address] Thomas Barros PA-C [address] [place] [address] 06/04/2024 10:40 AM EST Office Visit Family Practice [address] [facility] [address] [place] [phone] Steven Waterman, [address] [place] [address] 10/04/2024 1:00 PM EST Nurse Only Ancillary [address] [facility] [address] [place] [address] [place], Nurse Annual Wellness Visit [address] [address] Scheduled Orders Name Type Priority Associated Diagnoses Orde r Schedule EXTERNAL EKG 8 TO 15 DAYS HOME ENROLLMENT Holter Routine History of TIA (transient ischemic attack) Expected: 04/03/2024 (Approximate), Expires: 04/02/2025 Scheduled Referrals Name Type Priority Associated Diagnoses Orde r Schedule VASCULAR SURGERY REFERRAL OP Referral Within 10 days (routine) Bilateral carotid artery stenosis Ordered: 04/02/2024 Health Maintenance Due Date Last Done Comments DXA Scan 03/14/2022 03/14/2018, 12/2013, 04/02/2010, Additional history exists HbA1c 07/27/2024 [...] this encounter Medical Devices Implanted Type Area Tank Farm Attendant Device Identifier Shelf Expiration Date Model / Serial / Lot Biocomposite Knotless Corkscrew Suture [place] Implanted:Qty: 4 on 01/14/2022 by Fernando Armstrong, DO at OR [facility] Right: Shoulder [employer] 04/29/2023 AR-1941BC / / [id number] Suture [place], Biocomposite Swivelock With Closed Peek Eyelet Implanted:Qty: 1 on 01/14/2022 by Fernando Armstrong DO at OR [facility] Right: Shoulder 07/30/2025 AR-2324BCC TT / / [id number] Suture [place], Biocomposite Swivelock With Closed Peek Eyelet Implanted:Qty: 1 on 01/14/2022 by Fernando Armstrong DO at OR [facility] Right: Shoulder 07/30/2025 AR-2324BCC T / / [id number] Graft Arthroflex [id number] (28 Units) - [id number] - [id number] Implanted:Qty: 1 on 01/14/2022 by Fernando Armstrong DO at OR [facility] Right: Shoulder [employer] 07/15/2022 [id number] / [id number] / [id number] Biocomposite Knotless Swivelock [place] Implanted:Qty: 1 on 01/14/2022 by Fernando Armstrong DO at OR [facility] Right: Shoulder [employer] 10/28/2025 AR-2324KBC C / / [id number] Biocomposite Knotless Swivel Lock [place] Implanted:Qty: 1 on 01/14/2022 by Fernando Armstrong DO at OR [facility] Right: Shoulder [employer] 10/28/2025 AR-2324KBC C / / [id number] documented as of this encounter Procedures Procedure Name Priority Date/Time Associated Diagnosis Comments COMPREHENSIVE METABOLIC PANEL Routine 04/02/2024 5:02 PM EDT 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) MAGNESIUM Routine 04/02/2024 5:02 PM EDT HTN, goal below 140/90 documented in this encounter Results * MAGNESIUM (04/02/2024 5:02 PM EDT) Magnesium 1.6 1.5 - 2.6 mg/dL 04/03/2024 3:46 AM EDT [facility] Blood Venous blood specimen / Unknown Venipuncture / Unknown 04/02/2024 5:02 PM EDT 04/02/2024 5:02 PM EDT Steven Camarilloелена LAB BLOOD ORDERABLES [facility] [address] [place] [address] * (ABNORMAL) COMPREHENSIVE METABOLIC PANEL (04/02/2024 5:02 PM EDT) BUN 14 6 - 20 mg/dL 04/03/2024 3:46 AM EDT [facility] Creatinine 1.0 0.5 - 1.0 mg/dL 04/03/2024 3:46 AM EDT [facility] Estimated Glomerular Filtration Rate 59(L) >=60 mL/min 04/03/2024 3:46 AM EDT [facility] Comment:eGFR is calculated b ased on the CKD-EPI 2020 equation. Sodium 131(L) 135 - 146 mmol/L 04/03/2024 3:46 AM EDT [facility] Potassium 3.8 3.5 - 5.1 mmol/L 04/03/2024 3:46 AM EDT [facility] Chloride 95(L) 98 - 107 mmol/L 04/03/2024 3:46 AM EDT [facility] CO2 21(L) 22 - 32 mmol/L 04/03/2024 3:46 AM EDT [facility] Anion Gap 15 7 - 15 mmol/L 04/03/2024 3:46 AM EDT [facility] Glucose 132(H) 70 - 120 mg/dL 04/03/2024 3:46 AM EDT [facility] Albumin 4.6 3.8 - 5.0 g/dL 04/03/2024 3:46 AM EDT [facility] AST 32 10 - 35 U/L 04/03/2024 3:46 AM EDT [facility] Alkaline Phosphatase 86 35 - 130 U/L 04/03/2024 3:46 AM EDT [facility] Bilirubin, Total 0.9 <=1.2 mg/dL 04/03/2024 3:46 AM EDT [facility] Calcium 9.8 8.4 - 10.2 mg/dL 04/03/2024 3:46 AM EDT [facility] Protein 6.6 6.0 - 8.3 g/dL 04/03/2024 3:46 AM EDT [facility] ALT 21 10 - 35 U/L 04/03/2024 3:46 AM EDT [facility] Blood Venous blood specimen / Unknown Venipuncture / Unknown 04/02/2024 5:02 PM EDT 04/02/2024 5:02 PM EDT Steven Waterman DO LAB BLOOD ORDERABLES [facility] [address] [place] [address] documented in this encounter Visit Diagnoses Diagnosis History of TIA (transient ischemic attack)- Primary Transient ischemic attack (TIA), and cerebral infarction without residual deficits 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) Other disorders of neurohypophysis Expressive aphasia Aphasia Bilateral carotid artery stenosis Occlusion and stenosis of multiple and bilateral precerebral arteries without mention of cerebral infarction Type 2 diabetes mellitus with hemoglobin A1c goal of less than 7.0% (HCC) Type 2 diabetes mellitus with diabetic peripheral angiopathy without gangrene, without long-term current use of insulin (HCC) History of partial amputation of toe of left foot (HCC) HTN, goal below 140/90 Unspecified essential hypertension Dyslipidemia Other and unspecified hyperlipidemia Leg wound, right, sequela Gastroesophageal reflux disease without esophagitis Esophageal reflux Anxiety, generalized Generalized anxiety disorder Hospital discharge follow-up Other follow-up examination documented in this encounter Care Teams Production Sanitizer Relationship Specialty Start Date End Date Steven Waterman DO [address] [place] [address] PCP - General Internal Medicine 01/12/24 documented as of this encounter
--- OUTSIDE RECORDS SUMMARY | 2024-04-16 06:05 | External Medical Summary | Summary of Care ---
Author Name Unknown Organization [facility] Address [address] [place] [address] Phone [phone] Care Team Providers Care Chemical Maker Name Role Phone Steven Waterman DO Primary Care Provider Reason for Referral * Evaluate & Treat - Unlimited Visits (Within 10 days (routine)) - Authorized Specialty Diagnoses / Procedures Referred By Contact Referred To Contact Vascular Surgery / Cardiovascular Surgery Diagnoses Bilateral carotid artery stenosis Steven Waterman DO [address] [place] [address] Referral ID Status Reason Start Date Expiration Date Visits Requested Visits Authorized [id number] Authorized Specialty Services Required 04/02/2024 999 999 [...] EDT Office Visit Family Practice [address], [place] [address] [place] [address] Steven Waterman DO [address] [place] [address] History of TIA (transient ischemic attack)*; 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); Expressive aphasia; Bilateral carotid artery stenosis; Type 2 diabetes mellitus with hemoglobin A1c goal of less than 7.0% ([facility]); Type 2 diabetes mellitus with diabetic peripheral angiopathy without gangrene, without long-term current use of insulin ([facility]); History of partial amputation of toe of left foot ([facility]); HTN, goal below 140/90; Dyslipidemia; Leg wound, [...] PM EDT LAB DRAWN AND SENT TO [facility]. * Steven Waterman, - 04/02/2024 4:25 PM EDT SUBJECTIVE: Zeina Mahmood is a 83 year old female. Chief Complaint Patient presents with Hospital Follow-Up Hospital Follow-Up Recent Admission: Patient was recently admitted to [facility]. The date of discharge was 03/31/2024. Discharge report received and reviewed. HPI: Patient is an 83 year old female with a history of DM type II, HTN, Hyperlipidemia, CKD stage III, GERD, PVD, bilateral knee replacement, and multiple procedures on her feet that is seen for hospitalfollow up. The patient was admitted to [facility] 03/29/2024- 03/31/2024. The patient was admitted to [facility] for TIA. The patient had aphasia [...] hemoglobin A1c goal of less than 7.0% ([facility]) HTN, goal below 140/90 Type 2 diabetes mellitus with diabetic peripheral angiopathy without gangrene, without long-term current use of insulin ([facility]) Acquired absence of other left toe(s) ([facility]) History of partial amputation of toe of left foot ([facility]) Dyslipidemia Gastroesophageal reflux disease without esophagitis Anxiety, generalized Purpura senilis ([facility]) Nontraumatic complete tear of left rotator cuff Bilateral carotid artery stenosis History of TIA (transient ischemic attack) SIADH (syndrome of inappropriate ADH production) ([facility]) Current Outpatient Medications Medication Sig Dispense Refill [...] MOUTH TWICE A DAY WITH BREAKFAST AND [id number] Tablet 1 metFORMIN HCl ER 500 MG [...] days. SIADH (syndrome of inappropriate ADH production) ([facility]) Check CMP today Schedule with Nephrology Decrease [...] Time to Remove: 5:10 p.m. Serial Number: [id number] Ordering Provider: Dr. Steven Ayala LPN Zio patch applied in clinic, as per provider orders. Patient instructed on use. * Monique Navarro LPN - 04/02/2024 3:51 PM EDT Hospital follow up, feels well. Gets nauseated on plavix documented in this encounter Plan of Treatment Upcoming Encounters Date Type Department Care Team (Late st Contact Info) Description 04/23/2024 10:45 AM EDT Office Visit Orthopaedics [address] [phone] Shekhar Gordillo MD [address] [place] [address] 04/30/2024 11:20 AM EDT Office Visit Nephrology, Eugenia Arias [address] [place] [address] Maryam Gordon MD [address] [facility] [place] [address] 05/02/2024 10:00 AM EDT Office Visit Orthopaedics [facility] [address] [facility] [place] [address] Thomas Barros PA-C [address] [facility] [place] [address] 06/04/2024 10:40 AM EST Office Visit Family Practice [address] [phone] Steven Waterman, [address] [place] [address] 10/04/2024 1:00 PM EST Nurse Only Ancillary [address] [address] [employer], Nurse Annual Wellness Visit [address] [address] Scheduled Orders Name Type Priority Associated Diagnoses [...] Last Done Comments DXA Scan 03/14/2022 03/14/2018, 08/12/2013, 04/02/2010, Additional history exists HbA1c 07/27/2024 01/26/2024, [...] this encounter Medical Devices Implanted Type Area Gardening Supervisor Device Identifier Shelf Expiration Date Model / Serial / Lot Biocomposite Knotless Corkscrew Suture [place] Implanted:Qty: 4 on 01/14/2022 by Fernando Armstrong DO at OR [facility] Right: Shoulder [employer] 04/29/2023 AR-1941BC / / [id number] Suture [place], Biocomposite Swivelock With Closed Peek Eyelet Implanted:Qty: 1 on 01/14/2022 by Fernando Armstrong DO at OR [facility] Right: Shoulder 07/30/2025 AR-2324BCC TT / / [id number] Suture [place], Biocomposite Swivelock With Closed Peek Eyelet Implanted:Qty: 1 on 01/14/2022 by Fernando Armstrong DO at OR [facility] Right: Shoulder 07/30/2025 AR-2324BCC T / / [id number] Graft Arthroflex [id number] (28 Units) - [id number] - [id number] Implanted:Qty: 1 on 01/14/2022 by Fernando Armstrong DO at OR [facility] Right: Shoulder [employer] 07/15/2022 [id number] / [id number] / [id number] Biocomposite Knotless Swivelock [place] Implanted:Qty: 1 on 01/14/2022 by Fernando Armstrong DO at OR [facility] Right: Shoulder [employer] 10/28/2025 AR-2324KB C / / [id number] Biocomposite Knotless Swivel Lock [place] Implanted:Qty: 1 on 01/14/2022 by Fernando Armstrong DO at OR [facility] Right: Shoulder [employer] 10/28/2025 AR-2324KB C / / [id number] documented as of this encounter Procedures Procedure Name Priority Date/Time Associated Diagnosis Comments COMPREHENSIVE METABOLIC PANEL Routine 04/02/2024 5:02 PM EDT 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) MAGNESIUM Routine 04/02/2024 5:02 PM EDT HTN, goal below 140/90 documented in this encounter Results * MAGNESIUM (04/02/2024 5:02 PM EDT) Magnesium 1.6 1.5 - 2.6 mg/dL 04/03/2024 3:46 AM EDT LABORATORY [facility] Blood Venous blood specimen / Unknown Venipuncture / Unknown 04/02/2024 5:02 PM EDT 04/02/2024 5:02 PM EDT Steven Waterman DO LAB BLOOD ORDERABLES [facility] [address] [place] [address] * (ABNORMAL) COMPREHENSIVE METABOLIC PANEL (04/02/2024 5:02 [...] Steven Waterman DO LAB BLOOD ORDERABLES LABORATORY [facility] [address] [place] [address] documented in this encounter Visit Diagnoses Diagnosis [...] examination documented in this encounter Care Teams Chemical Maker Relationship Specialty Start Date End Date Steven Waterman DO [address] [place] [address] PCP - General Internal Medicine 01/12/24 documented as of this encounter
--- OUTSIDE RECORDS SUMMARY | 2024-04-16 06:05 | External Medical Summary | Summary of Care ---
Author Name Unknown Organization [facility] Address [address] [place] [address] Phone [phone] Care Team Providers Care Manager Educational Name Role Phone Steven Waterman DO Primary Care Provider [phone] Reason for Visit * Reason Onset Date Comments Appointment 04/02/2024 Wound center Encounter Details Date Type Department Care Team (Late st Contact Info) Description 04/02/2024 Telephone Family Practice [facility] [address] [place] [phone] Steven Waterman DO [address] [place] [address] Appointment (Wound center) Allergies Active Allergy Reactions Criticality Noted Date Comments Glutaral Rash 08/16/2018 Itchy, dry scabs Morphine Sulfate 06/02/2006 vomiting Cholestyramine 10/05/2021 NAUSEA AND VOMITING documented as of this encounter (statuses as of 04/02/2024) Medications Medication Sig Dispensed Refills Start Date End Date Status Polyethyl Glycol-Propyl Glycol 0.4-0.3 % Ophthalmic Solution Instill 1 Drop into both eyes in the morning and 1 Drop before bedtime. Active Desonide 0.05 % creamIndications:A llergic dermatitis due to other chemical product APPLY TO RASH ON THE FACE & ARMS TWO TIMES A DAY NEEDED FOR FLARES 60 g 1 09/23/2019 Active Fluocinonide 0.05 % external solutionIndication s:Allergic dermatitis due to other chemical product APPLY [...] 10/03/2022 Clobetasol Propionate 0.05 % External Cream (Temovate)Indicati ons:Dermatitis APPLY TO RASH ON THE ARMS AND [...] as needed. Active Lisinopril 40 MG Oral TabletIndications: HTN, goal below 140/90 TAKE 1 TABLET BY MOUTH EVERY DAY 90 Tablet 3 09/26/2023 Active traZODone HCl 100 MG Oral Tablet (Desyrel) TAKE 1 TABLET BY MOUTH EVERYDAY AT BEDTIME 90 Tablet 2 11/08/2023 Active Carvedilol 6.25 MG Oral Tablet (Coreg)Indications :HTN, goal below 140/90 TAKE 1 TABLET BY MOUTH TWICE A DAY WITH BREAKFAST AND DINNER 180 Tablet 1 11/17/2023 Active Omeprazole 20 MG Oral Capsule Delayed Release (PriLOSEC)Indicati ons:Gastroesophage al reflux disease without esophagitis TAKE 1 CAPSULE BY MOUTH EVERY DAY IN THE MORNING 1 HOUR PRIOR TO FIRST MEAL 90 Capsule 3 01/18/2024 Active Tavaborole 5 % External Solution APPLY TOPICALLY TO AFFECTED TOENAILS ONCE DAILY FOR 48 WEEKS (6 MONTHS) Active metFORMIN HCl ER 500 MG Oral Tablet Extended Release 24 Hour (Glucophage XR)Indications:Typ e 2 diabetes mellitus with diabetic peripheral angiopathy [...] 02/29/2024 Active Cephalexin 500 MG Oral Capsule (Keflex)Indication s:Cellulitis of right lower extremity Take 1 Capsule by mouth in the morning and 1 Capsule at noon and 1 Capsule before bedtime. Do all this for 10 days. 30 Capsule 03/29/2024 04/08/2024 Active documented as of this encounter (statuses as of 04/02/2024) Active Problems Problem Noted Date Diagnosed Date [...] as of this encounter (statuses as of 04/02/2024) Resolved Problems Problem Noted Date Diagnosed Date [...] as of this encounter (statuses as of 04/02/2024) Immunizations Name Administration Dates Next Due COVID-19 mRNA, LNP-s, No Pre serve, 2-Dose Series (Moderna) 09/26/2020,08/22/2020 COVID-19, MRNA-LNP, 23-24, P F, 30 MCG/0.3 mL, 12 YRS AND ABOVE, IM (PFIZER-Comirnat) 01/29/2024,05/19/2023 COVID-19, mRNA, LNP-s, PF, B ooster, [...] encounter Miscellaneous Notes * Telephone Encounter - Ernestine Church OSA - 04/02/2024 3:05 PM EDT Records faxed to wound care center Called to see if received records.. she did and they are on providers desk Will call when scheduled documented in this encounter Plan of Treatment Upcoming Encounters Date Type Department Care Team (Late st Contact Info) Description 04/02/2024 3:40 PM EDT Office Visit Family Practice [address] [place] [address] [place] [address] Steven Waterman, [address] [place] [address] 04/23/2024 10:45 AM EDT Office Visit Orthopaedics [place] [address] [place] [phone] Shekhar Gordillo MD [address] [place] [address] 04/30/2024 11:20 AM EDT Office Visit Nephrology, Eugenia Arias 200 [place] [address] Maryam Gordon MD 200 [place] [address] 05/02/2024 10:00 AM EDT Office Visit Orthopaedics [facility] [address] [facility] [place] [address] Thomas Barros PA-C 132 [place] [address] 06/04/2024 10:40 AM EST Office Visit Family Practice 65 [facility] [address] [place] [phone] Steven Waterman, [address] [place] [address] 10/04/2024 1:00 PM EST Nurse Only Ancillary 65 [facility] [address] [place] [address] College, Nurse Annual Wellness Visit [address] [address] Health Maintenance Due Date Last Done Comments DXA Scan 03/14/2022 03/14/2018, 08/12/2013, 04/02/2010, Additional history exists Influenza Vaccine (FLU [...] this encounter Medical Devices Implanted Type Area Lead Cashier Device Identifier Shelf Expiration Date Model / Serial / Lot Biocomposite Knotless Corkscrew Suture [place] Implanted:Qty: 4 on 01/14/2022 by Fernando Armstrong DO at OR [facility] [address] Right: Shoulder [employer] 04/29/2023 AR-1941BC / / [id number] Suture [place], Biocomposite Swivelock With Closed Peek Eyelet Implanted:Qty: 1 on 01/14/2022 by Fernando Armstrong DO at OR [facility] [address] Right: Shoulder 07/30/2025 AR-2324BCC TT / / [id number] Suture [place], Biocomposite Swivelock With Closed Peek Eyelet Implanted:Qty: 1 on 01/14/2022 by Fernando Armstrong DO at OR [facility] [address] Right: Shoulder 07/30/2025 AR-2324BCC T / / [id number] Graft Arthroflex [id number] (28 Units) - [id number] - [id number] Implanted:Qty: 1 on 01/14/2022 by Fernando Armstrong DO at OR [facility] [address] Right: Shoulder [employer] 07/15/2022 [id number] / [id number] / [id number] Biocomposite Knotless Swivelock [place] Implanted:Qty: 1 on 01/14/2022 by Fernando Armstrong DO at OR [facility] Right: Shoulder [employer] 10/28/2025 AR-2324KBC C / / [id number] Biocomposite Knotless Swivel Lock [place] Implanted:Qty: 1 on 01/14/2022 by Fernando Armstrong DO at OR [facility] Right: Shoulder [employer] 10/28/2025 AR-2324KBC C / / [id number] documented as of this encounter Care Teams Manager Educational Relationship Specialty Start Date End Date Steven Waterman DO 293 [facility] [place] [address] PCP - General Internal Medicine 01/12/24 documented as of this encounter
--- OUTSIDE RECORDS SUMMARY | 2024-04-16 06:05 | External Medical Summary ---
Author Name Unknown Address Unknown Organization K01:[facility] [address] [place] [address] Laboratory Report Ordering Provider Test Date Status CHARITY MIKE 04/02/2024 17:02:06 Final Observation Date Value Abnormality Reference (Units ) Status Magnesium 04/02/2024 17:02:06 1.6 1.5-2.6 (m g/dL) Final Performing Location [facility] [address] [place] [address]
--- OUTSIDE RECORDS SUMMARY | 2024-04-16 06:05 | External Medical Summary | Summary of Care ---
Author Name Unknown Organization [facility] Address [address] [place] [address] Phone [phone] Care Team Providers Care Language Arts Teacher Name Role Phone Steven Waterman DO Primary Care Provider [phone] Reason for Referral * Evaluate & Treat - Unlimited Visits (Within 10 days (routine)) - Authorized Specialty Diagnoses / Procedures Referred By Contac t Referred To Contact Wound Care Diagnoses Ulcer of right lower extremity, limited to breakdown of skin (HCC) Steven Waterman DO [address] [place] [address] Referral ID Status Reason Start Date Expiration Date Visits Requested Visits Authorized [id number] Authorized Specialty Services Required 03/29/2024 999 999 [...] EDT Office Visit Family Practice [address] [place] [address] [place] [address] Steven Waterman DO [address] [place] [address] Ulcer of right lower extremity, limited to [...] gangrene, without long-term current use of insulin ([facility]),Type 2 diabetes mellitus with hemoglobin A1c goal [...] hemoglobin A1c goal of less than 7.0% ([facility]) HTN, goal below 140/90 Type 2 diabetes mellitus with diabetic peripheral angiopathy without gangrene, without long-term current use of insulin (HCC) Acquired absence of other left toe(s) ([facility]) History of partial amputation of toe of [...] MOUTH TWICE A DAY WITH BREAKFAST AND [id number] Tablet 1 Omeprazole 20 MG Oral Capsule [...] Date Acquired absence of other left toe(s) ([facility]) 08/15/2018 Bowel obstruction ([facility]) 02/2016 [facility] Diabetic eye exam ([facility]) 08/27/2013 no retinopathy DM type 2, goal A1c below 7 Dyslipidemia 08/15/2019 Fracture, toe 05/2016 Left great toe Gastroesophageal reflux disease without esophagitis 08/15/2019 Hemorrhoids History of partial amputation of toe of left foot ([facility]) 02/12/2019 HTN, goal below 140/90 10/14/2014 Knee joint replacement status 09/06/2006 Osteoarthritis of knee Retinal detachment 06/2015 PPV/EL/C3F8 12%/PST triescence 20mg for Mac-Off RD with serous chorodidals OS, Dr. Toro Retinal tear 09/2015 OD-laser Procedure, Dr. Toro Tendonitis left arm Type 2 diabetes mellitus with stage 3 chronic kidney disease and hypertension ([facility]) 03/06/2018 Past Surgical History: Procedure Laterality Date ARTHO,SHOUL,W/ROTATOR CUFF Right 01/14/2022 ARTHROSCOPY SHOULDER ROTATOR CUFF performed by Fernando Armstrong DO at OR [facility] BUNION CORRECTED WITH DOUBLE OSTEOTOMY BUNION CORRECTED WITH DOUBLE OSTEOTOMY CARPAL TUNNEL SURGERY 09/2007 CARPAL TUNNEL SURGERY 10/2007 COLONOSCOPY diverticulitis acute/[facility] COLONOSCOPY, DIAGNOSTIC (RECTUM) 08/02/2013 COLONOSCOPY FLEXIBLE PROXIMAL DIAGNOSTIC performed by Madan Mendez MD at [facility] DENTAL SURGERY PROCEDURE NEC Dental Surgery [...] performed by Fernando Armstrong, DO at OR [facility] TOTAL ABD HYSTERECTOMY W/WO REMOVAL OF TUBE(S) [...] partial amputation of toe of left foot ([facility]) HTN, goal below 140/90 Continue Amlodipine, Lisinopril, [...] PM EDT Office Visit Family Practice 65 [facility] [address] [place] [address] Steven Waterman, [address] [place] [address] 04/23/2024 10:45 AM EDT Office Visit Orthopaedics [facility] [address] [place] [phone] Shekhar Gordillo MD [address] [place], [place] [phone] 04/30/2024 11:20 AM EDT Office Visit Nephrology, [facility] [address] [place] [address] Maryam Gordon MD [address] [place] [address] 05/02/2024 10:00 AM EDT Office Visit Orthopaedics [facility] [address] [place] [address] Thomas Barros PA-C [address] [place] [address] 06/04/2024 10:40 AM EST Office Visit Family Practice 65 [facility] [address] [place] [address] Steven Waterman, [address] [place] [address] 10/04/2024 1:00 PM EST Nurse Only Ancillary [address] [address] College, Nurse Annual Wellness Visit [address] [address] Scheduled Referrals Name Type Priority Associated Diagnoses Orde r Schedule WOUND CARE REFERRAL OP Referral Within 10 days (routine) Ulcer of right lower extremity, limited to breakdown of skin (HCC) Ordered: 03/29/2024 Health Maintenance Due Date Last Done Comments DXA Scan 03/14/2022 03/14/2018, 12/2013, 04/02/2010, Additional history exists Influenza Vaccine (FLU shot) (#1) 2024 04/04/2023, 04/07/2022, 04/07/2021, Additional history exists HbA1c 07/27/2024 01/26/2024, 08/31, 05/08/2023, Additional history exists DTap/Tdap Vaccines (2 - Td or Tdap) 09/01/2024 09/01/2014, 06/26/2007 Adult Wellness Visit 10/01/2024 10/02/2023, 09/30/19 23 Depression Screening 10/01/2024 10/02/2023 Albumin/Creatinine Ratio 01/25/2025 024, 03/27/2023, 06/17/2022, Additional history exists GFR 01/25/2025 01/26/2024, 0303/2024, 10/13/2023, Additional history exists Diabetic Foot Exam 03/04/2025 03/04/2024, 0 04/04/2023, 02/11/2022, Additional history exists Diabetic Eye Exam 03/20/2025 03/20/2024, , 03/15/2023, Additional history exists Pneumococcal Vaccine: 65+ Years Completed 10/16/2015, 09/01/2014, 11/15/2005 Zoster Vaccines Completed 01/19/2018, 0 10/2017, 06/30/2006 COVID-19 Vaccine Completed 01/29/2024, , [...] this encounter Medical Devices Implanted Type Area Hop Weigher Device Identifier Shelf Expiration Date Model / Serial / Lot Biocomposite Knotless Corkscrew Suture [place] Implanted:Qty: 4 on 01/14/2022 by Fernando Armstrong DO at OR [facility] Right: Shoulder [employer] 04/29/2023 AR-1941BC / / [id number] Suture [place], Biocomposite Swivelock With Closed Peek Eyelet Implanted:Qty: 1 on 01/14/2022 by Fernando Armstrong DO at OR [facility] Right: Shoulder 07/30/2025 AR-2324BCC TT / / [id number] Suture [place], Biocomposite Swivelock With Closed Peek Eyelet Implanted:Qty: 1 on 01/14/2022 by Fernando Armstrong DO at OR [facility] Right: Shoulder 07/30/2025 AR2324BCC T / / [id number] Graft Arthroflex [id number] (28 Units) - [id number] - [id number] Implanted:Qty: 1 on 01/14/2022 by Fernando Armstrong DO at OR [facility] Right: Shoulder LIF[employer] 07/15/2022 [id number] / [id number] / [id number] Biocomposite Knotless Swivelock [place] Implanted:Qty: 1 on 01/14/2022 by Fernando Armstrong DO at OR [facility] Right: Shoulder [employer] 10/28/2025 [id number] C / / [id number] Biocomposite Knotless Swivel Lock [place] Implanted:Qty: 1 on 01/14/2022 by Fernando Armstrong DO at OR [facility] Right: Shoulder [employer] 10/28/2025 [facility]2324[facility] C / / [id number] documented as of this encounter Visit Diagnoses [...] disorder documented in this encounter Care Teams Language Arts Teacher Relationship Specialty Start Date End Date Steven Waterman DO [address] [place] [address] PCP - General Internal Medicine 01/12/24 documented as of this encounter
--- OUTSIDE RECORDS SUMMARY | 2024-04-16 06:05 | External Medical Summary | Summary of Care ---
Author Name Unknown Organization [facility] Address [address] [place] [address] Phone [phone] Care Team Providers Care Early Head Start Teacher Name Role Phone Steven Waterman DO Primary Care Provider [phone] Encounter Details Date Type Department Care Team (Late st Contact Info) Description 04/01/2024 Population Health External Data Unspecified Department Allergies Active Allergy Reactions Criticality Noted Date Comments Glutaral Rash 08/16/2018 Itchy, dry scabs Morphine Sulfate 06/02/2006 vomiting Cholestyramine 10/05/2021 NAUSEA AND VOMITING documented as of this encounter (statuses as of 04/01/2024) Medications Medication Sig Dispensed Refills Start Date [...] as of this encounter (statuses as of 04/01/2024) Active Problems Problem Noted Date Diagnosed Date [...] as of this encounter (statuses as of 04/01/2024) Resolved Problems Problem Noted Date Diagnosed Date Resolved Date Skin ulcer of toe of right f oot with fat layer exposed 12/07/2021 12/07/2021 Avascular necrosis of talus, right 08/15/2018 09/22/2023 Amputated toe, right 08/15/2018 019 Type 2 diabetes mellitus wit h stage 3 chronic kidney disease and hypertension 03/06/2018 03/04/20 Kidney disease, chronic, sta ge III (GFR [...] as of this encounter (statuses as of 04/01/2024) Immunizations Name Administration Dates Next Due COVID-19 mRNA, LNP-s, No Pre serve, 2-Dose Series (Moderna) 09/26/2020,08/22/2020 COVID-19, MRNA-LNP, 23-24, P F, 30 MCG/0.3 mL, 12 YRS AND ABOVE, IM (PFIZER-Comirnaty) 01/29/2024,05/19/2023 COVID-19, mRNA, LNP-s, PF, B ooster, 100mcg/0.5mg (Moderna) 05/03/2022,10/12/2021,05/31/2021 Covid-19, Mrna, Lnp-s, Pf, B ivalent, 30 Mcg, IM, 12 yrs and above (Powered by Peak) 05/03/2022 Pneumococcal Conjugate Vacc, 13 Valent (Prevnar) [...] 04/23/2024 10:45 AM EDT Office Visit Orthopaedics [facility] [address] [place] [phone] Shekhar Gordillo MD [address] [place] [address] 04/30/2024 11:20 AM EDT Office [place] [address] [place] [address] Maryam Gordon MD 200 [place] [address] 05/02/2024 10:00 AM EDT Office Visit [facility] [address] [facility] [address] Thomas Barros PA-C 132 [place] [address] 06/04/2024 10:40 AM EST Office Visit Family Practice [address] [place] [address] 293 [place] [address] Steven Waterman, [address] [place] [address] 10/04/2024 1:00 PM EST Nurse Only Ancillary [address] [place] 293 [place] [address] College, Nurse Annual Wellness Visit [address] [facility] 293 [facility], [place] [address] Health Maintenance Due Date Last Done Comments [...] this encounter Medical Devices Implanted Type Area Rotor Plate Washer Device Identifier Shelf Expiration Date Model / Serial / Lot Biocomposite Knotless Corkscrew Suture [place] Implanted:Qty: 4 on 01/14/2022 by Fernando Armstrong DO at OR [facility] Right: Shoulder [employer] 04/29/2023 AR-1941BC / / [id number] Suture [place], Biocomposite Swivelock With Closed Peek Eyelet Implanted:Qty: 1 on 01/14/2022 by Fernando Armstrong DO at OR [facility] Right: Shoulder 07/30/2025 AR-2324BCC TT / / [id number] Suture [place], Biocomposite Swivelock With Closed Peek Eyelet Implanted:Qty: 1 on 01/14/2022 by Fernando Armstrong DO at OR [facility] Right: Shoulder 07/30/2025 AR-2324BCC T / / [id number] Graft Arthroflex [id number] (28 Units) - [id number] - [id number] Implanted:Qty: 1 on 01/14/2022 by Fernando Armstrong DO at OR [facility] Right: Shoulder LIF[employer]ET 07/15/2022 [id number] / [id number] / [id number] Biocomposite Knotless Swivelock [place] Implanted:Qty: 1 on 01/14/2022 by Fernando Armstrong DO at OR [facility] Right: Shoulder [employer] 10/28/2025 AR-2324KBC C / / [id number] Biocomposite Knotless Swivel Lock [place] Implanted:Qty: 1 on 01/14/2022 by Fernando Armstrong DO at OR [facility] Right: Shoulder [employer] 10/28/2025 AR-2324KBC C / / [id number] documented as of this encounter Care Teams Early Head Start Teacher Relationship Specialty Start Date End Date Steven Waterman DO [address] [place] [address] PCP - General Internal Medicine 01/12/24 documented as of this encounter
[2024-04-16 06:39] LABS: BUN Creatinine Ratio 10.1 (10-20); Calcium 9.5 mg/dl (8.6-10.3); Creatinine Clr Calc Pharmacy 46.3 ml/min; Est GFR (Non-African American) 60.4 ml/min; Potassium 4.3 mmol/L (3.5-5.1)
[2024-04-16] MEDS: LR 15ML/HR IV SCH (06:56)
[2024-04-16] MEDS: SODIUM CHLORIDE 0.9% 1,000 ML IV SCH (06:56)
[2024-04-16] MEDS ORDERED: LIDOCAINE 2% 2 ML VIAL/AMP(20MG/ML) INFIL ONE (07:09)
[2024-04-16] MEDS ORDERED: ROCURONIUM BROMIDE 10 MG/ML 5 ML VIAL IV ONE (07:09)
[2024-04-16] MEDS ORDERED: PROPOFOL IV EMULSION 10 MG/ML 20 ML VIAL IV ONE ×3 (07:09→09:58)
[2024-04-16] MEDS ORDERED: fentaNYL citrate PF 100 MCG/2 ML VIAL ONE (07:09)
[2024-04-16] MEDS ORDERED: HEPARIN SOD (PORCINE) 1000 UNIT/ML ONE ×2 (07:09→08:32)
[2024-04-16] MEDS ORDERED: ONDANSETRON INJ 2 MG/ML 2 ML VIAL ONE (07:09)
[2024-04-16] MEDS ORDERED: HYDROmorphone INJ 1 MG/ML SYRINGE IV PRN (07:20)
[2024-04-16] MEDS ORDERED: fentaNYL citrate PF 100 MCG/2 ML VIAL IV PRN (07:20)
[2024-04-16] MEDS ORDERED: ePHEDrine sulfate 50 MG/ML AMP IV PRN (07:20)
[2024-04-16] MEDS ORDERED: ATROPINE SULFATE 0.1 MG/ML 10ML SYR IV PRN (07:20)
--- NOTE | 2024-04-16 07:33 | History & Physical Bridge Note ---
Date of Service April 16, 2024 History & Physical Bridge Note I have examined the patient, reviewed the History & Physical and in the interval since the performance of the History & Physical I have noted the following changes of clinical significance: no changes noted
--- NOTE | 2024-04-16 07:33 | History & Physical Report ---
Date of Service April 16, 2024 History of Present Illness Primary Care Provider: Steven Waterman DO Name: KENIA ACUÑA Patient Number: [id number] : 1940 Date of Service: 04/04/2024 Chief Complaint: _New patient consultation for symptomatic left ICA stenosis HPI: _Mrs. Acuña is an elderly female who presents to Dr. Sawyer's vascular surgery clinic today as a new patient in consultation for symptomatic left ICA stenosis. Patient states that she was at home in her normal state of health, and suddenly developed slurred/garbled speech, where she was unable to get the words out that she wanted to say. She states that the symptoms lasted about 30 minutes before resolving completely. She has had no previous similar symptoms in the past, nor has she had any TIAs prior to this. She denies any amaurosis, facial droop, unilateral extremity weakness numbness or tingling, or difficulty understanding her speaking to her. She did go to the emergency department, where she was found to have about 70% stenosis of her left ICA, and 60 to 70% stenosis of the right ICA on a neck CTA. Brain MRI did not demonstrate any CVA. She has had no recurrence of symptoms. She does ambulate with a rolling walker due to some right foot and ankle instability, and did strike her right medial hickey on something about 3 weeks ago. She states the area became somewhat reddened and developed a scab over it, and is healing but very slowly. She denies headache, fever, chest pain, shortness of breath, abdominal pain, nausea, vomiting, rest pain, claudication, other nonhealing wounds or ulcers, other complaints. Review of systems: A total of 14 systems were reviewed and are negative aside from what is related in her HPI Imaging: Neck CTA performed at [facility] demonstrates 60 to 70% stenosis of her bilateral ICAs, this appears somewhat worse in the left than the right. Brain MRI also performed at [facility] demonstrates no acute CVA. Current Home Meds: (Last Updated 04/04 10:26) acyclovir PRN amLODIPine (amLODIPine 2.5 mg oral tablet) TAKE 1 TABLET BY MOUTH EVERY DAY aspirin (aspirin 81 mg oral delayed release tablet) 81 mg PO Daily atorvastatin (atorvastatin 40 mg oral tablet) 40 mg PO Daily carvedilol (carvedilol 6.25 mg oral tablet) TAKE 1 TABLET BY MOUTH TWICE A DAY WITH BREAKFAST AND DINNER cephalexin (Keflex 500 mg oral capsule) 500 mg PO tid clobetasol topical (clobetasol 0.05% topical cream) 1 appl topical bid to affected area, do not use longer than 2 weeks clopidogrel (clopidogrel 75 mg oral tablet) 75 mg PO Daily fluocinonide topical (fluocinonide 0.05% topical solution) PRN: rash apply to scalp dermatitis bid as needed lisinopril (lisinopril 40 mg oral tablet) 40 mg PO Daily magnesium oxide (magnesium oxide base 500 mg oral tablet) 1,000 mg metformin (metformin 500 mg oral tablet) 500 mg PO bid ocular lubricant (Systane Ultra ophthalmic solution) bid tavaborole topical (Kerydin 5% topical solution) 1 appl topical Daily Apply to affected toenails once per day for 6 months traZODone (traZODone 100 mg oral tablet) 0.5 tab po q HS Allergies and Sensitivities: sodium hypochlorite topical liquid morphine(Vomiting) Past Medical History: Problems: Bilateral carotid artery stenosis Callus Tinea unguium Skin ulcer of toe of left foot Pes planus of both feet Hammertoe, bilateral Diabetic neuropathy DM (diabetes mellitus) Pes planus of right foot Arthritis of both feet Toe amputee Actinic keratosis Seborrheic keratosis Elevated cholesterol HTN (hypertension) Surgical history: Today for tonsillectomy, cholecystectomy, hysterectomy, bunionectomy, bowel resection, bilateral total knee arthroplasties Family history: Positive for stroke, hypertension Social history: Patient is a lifelong non-smoker, she does have an occasional alcoholic beverage usually in the form of wine. She denies any illicit drug use. She is and lives with her . OBJECTIVE Vitals: Last Updated 04/04/24 10:35 Date Temp BP Location Pulse RR SpO2 Pain 04/04/24 172/72 Right Arm 04/04/24 172/70 Left Arm 61 98 0 03/28/24 0 Vital Signs are the last 3 documented. No Orthostatic Data Available Height and Weight: Last Updated 03/28/24 13:53 Date BMI Wt(kg) Wt(lb) Method Ht(cm) (ft-in) Method 03/28/24 30.96 76.7 169 Standing Scale 157.4 5-2 12/08/23 30 76.8 169 Standing Scale 160 5-3 Standing 08/23/23 31.97 78.3 172 Standing Scale 156.5 5-1 Heights and Weights are the last 3 documented. Physical Exam Constitutional: In general patient is a healthy-appearing well-nourished well- developed elderly female in no distress. She is alert and oriented without focal deficits. Her eyes are EOMI, her trachea is midline. Her carotids demonstrate faint bruit. Her heart is regular, her lungs are decreased slightly but clear. Her abdomen is soft and nontender with no active bowel sounds in all 4 quadrants. Brachial and radial pulses are +3. Femoral pulses are +3. Right lower extremity DP pulses +2, PT is +1 and difficult to palpate due to ankle deformity. Left lower extremity DP and PT pulses are +2. She has brisk capillary refill and no sign of distal ischemia. She does have a scab on her right mid hickey, which is loosening of the ankles and beginning to heal. There is minimal local erythema here which is not expanding from a previous gasper placed a week ago. Is not particularly warm or odor or drainage noted. ASSESSMENT: _ PLAN: _ 1 ) _symptomatic left ICA stenosis Patient does have bilateral ICA stenosis, which appears somewhat worse on the left side than the right based on CTA. She unfortunately did suffer an episode of expressive aphasia lasting about 30 minutes 1 week ago. She was admitted to [facility] and started on DAPT, and her dose of atorvastatin was increased to 80 mg. Due to the symptomatic left ICA disease, we recommend that she undergo surgical intervention. Patient was also seen by Dr. Sawyer in the office today. The procedures, risks, benefits, alternatives of carotid endarterectomy versus TCAR were discussed at length with the patient, and her present. Patient elects to proceed with TCAR. The risks of the surgery including but not limited to CVA, heart attack, , bleeding, infection, local nerve injury, blood clots, or discussed at length with the patient and her . Patient expresses understanding and agreement to proceed. This to be scheduled in the next 2 weeks or so at patient's convenience. She is to remain on her DAPT, and is aware she will require this at least 1 year postoperatively. There advised to call any other questions or concerns. Thank you for letting us participate in the care of this patient. I have personally spent_49__ minutes performing [id number] and bvi-[id number] activities on this date of service.Time does not include separately reported services. Activities Include: _x_ review of the medical record _x_ obtaining a history _x_ physical exam/evaluation _x_ review labs _x_ review radiology reports _x_ counseling/educating patient/family/caregiver __ discussion/referral to other healthcare professional _x_ documenting care in the medical record __ independent interpretation of results x__ communication of results to patient/family/caregiver x__ coordination of care Signature Line Electronic Signature on File CC: Steven Waterman, DO [address] [facility] [id number] * Electronically Reviewed/Signed by: Isabel Fernández PA-C Author Signature Dt/Tm:04/04/2024 12:28 PM [facility] [place] [address], [address] [place] [id number] [place] Result Type: HVI Outpt Note Date of Service: April 04, 2024 12:18 EDT Authorization Status: Final Author or Import Date: BETHANIE Fernández Lynn on April 04, 2024 12:28 EDT Verified By: BETHANIE Fernández Lynn on April 04, 2024 12:28 EDT Encounter info: [id number], [facility], Clinic, 04/04/2024 - 04/04/2024 Allergies Allergy/AdvReac Type Severity Reaction Status Date / Time Bleach (Sodium Hypochlorite) AdvReac Severe hives, Verified 04/16/24 06:10 itching, rash morphine AdvReac Mild SEVERE Verified 04/16/24 06:10 NAUSEA AND VOMITING Home Medications Medication Instructions Recorded Confirmed Type acetaminophen 500 mg tablet 500 mg PO Q6H PRN Pain 03/29/24 04/16/24 History (Tylenol Extra Strength) acyclovir 400 mg tablet 400 mg PO BID PRN flare up 03/29/24 04/16/24 History amlodipine 2.5 mg tablet 2.5 mg PO QAM 03/29/24 04/16/24 History carvedilol 6.25 mg tablet 6.25 mg PO BID 03/29/24 04/16/24 History clobetasol 0.05 % topical cream 1 applic topical BID PRN flare 03/29/24 04/16/24 History desonide 0.05 % topical cream 1 applic topical BID PRN flare up 03/29/24 04/16/24 History lisinopril 40 mg tablet 40 mg PO QAM 03/29/24 04/16/24 History magnesium oxide 500 mg PO DAILY 03/29/24 04/16/24 History metformin 500 mg tablet,extended 500 mg PO QAM 03/29/24 04/16/24 History release 24 hr peg 400-propylene glycol (PF) 0.4 1 drp ophthalmic (eye) BID 03/29/24 04/16/24 History %-0.3 % eye drops in a dropperette (Systane (PF)) aspirin 81 mg tablet,delayed 81 mg PO QAM #30 tabs 03/31/24 04/16/24 Rx release clopidogrel 75 mg tablet 75 mg PO QAM 19 days #19 tabs 03/31/24 04/16/24 Rx trazodone 100 mg tablet 50 mg (1/2 x 100 mg) PO HS #0 tabs 03/31/24 04/16/24 Rx atorvastatin 20 mg tablet 40 mg PO QAM 04/05/24 04/16/24 History Past Med/Surg History Problem List Hypertensive urgency (Acute) Acute hyponatremia (Acute) Anemia (Acute) AMS (altered mental status) (Acute) Expressive aphasia (Acute) Stroke-like symptom Hip bursitis, left Fracture of metatarsal of right foot, closed Diabetic ulcer of toe (Acute) Small bowel obstruction (Acute) History of cataract surgery (Chronic) H/O colonoscopy (Chronic) "diverticulosis 2013" History of esophagogastroduodenoscopy (EGD) (Chronic) History of carpal tunnel surgery (Chronic) S/P cholecystectomy (Chronic) H/O toe surgery (Chronic) Hx of total hysterectomy (Chronic) Hx of total knee arthroplasty (Chronic) HLD (hyperlipidemia) (Chronic) HTN (hypertension) (Chronic) DM2 (diabetes mellitus, type 2) (Chronic) Medical History Encounter for pre-operative examination History of COVID-19 (02/05/24) pt. reports testing pos at her doctor office Hyponatremia Carotid stenosis Hip bursitis, left Hx-TIA (transient ischemic attack) (02/2024) recent admit to [facility], symptoms of speech difficulty have completely improved adn pt. reports no ongoing symptoms AMY (generalized anxiety disorder) Hx SBO History of Holter monitoring currently has, will complete on 04/16 GERD (gastroesophageal reflux disease) Hyperlipidemia Hypertension Anemia Wound infection (02/2024) right leg, inside of calf, due to a fall, currently taking cephalexin, states wound is resolving, will see the wound center at [facility], wound is dry, per pt. DM2 (diabetes mellitus, type 2) Peripheral neuropathy Amputated toe partial, left toe Surgical History History of intestinal surgery due to sbo History of trabeculectomy left eye History of arthroscopy of right shoulder Hx of colonoscopy Hx of esophagogastroduodenoscopy Hx of toe surgery multiple- bunionectomies, amputation of tips of toes History of carpal tunnel release of both wrists Hx of total hysterectomy Hx of total knee arthroplasty S/P cholecystectomy Hx of bilateral cataract extraction Social History Smoking Status: Never smoker Second Hand Exposure: No; Do You Dip or Chew Tobacco: No; Tobacco Cessation Education Requested by Patient: No Hx Alcohol Use: Yes Alcohol type: wine Alcohol type Comment: daily w/dinner Alcohol Intake Frequency: 4 or More x per/Week Hx Substance Use: No Preferred Language: Bulgarian Communication Ability: Effective Visual Impairment: Limited Hearing Ability: Normal Housekeeping Attendant Required: No Beliefs That Will Affect Care: None marital status: Current Living Situation: Spouse current occupational status: retired Other Information That Helps Us Care for You: No Feels Safe at Home: Yes Safety Concerns: Feels Safe At This Time Diet: regular caffeine: Yes during the past year weight has: remained stable Gender Identity: Female Assistive Devices: Glasses and Walker Results & Data Vital Signs (Past 12 Hours) Vital Signs Temp Pulse Resp BP BP Pulse Ox O2 Del Method 04/16/24 06:25 36.7 C 64 20 160/71 H 151/62 H 96 Room Air
[2024-04-16] MEDS: ceFAZolin 2000MG 2,000 MG/15 ML SYR IV SCH ×2 (08:03→17:22)
[2024-04-16] MEDS ORDERED: ePHEDrine sulfate 50 MG/5 ML SYR ONE (08:32)
[2024-04-16] MEDS ORDERED: GLYCOPYRROLATE 0.2 MG/ML VIAL ONE (08:32)
[2024-04-16] MEDS: GELATIN SPONGE SZ 100 ONE (08:38)
[2024-04-16] MEDS: THROMBIN FOR SOLN 20000 UNIT KIT ONE (08:39)
[2024-04-16] MEDS ORDERED: PROTAMINE SULFATE 10 MG/ML 5 ML VIAL IV ONE (09:17)
[2024-04-16] MEDS ORDERED: SUGAMMADEX SODIUM 200 MG/2 ML VIAL IV ONE (09:25)
--- NOTE | 2024-04-16 09:34 | Post Operative Brief Note ---
Immediate Post Op Note Date of Surgery April 16, 2024 Pre & Post Diagnosis Operation Date: 04/16/24 08:00 Pre-Op Diagnosis: Left Carotid Stenosis Post-Op Diagnosis: Left Carotid Stenosis I identified the patient and participated in the time-out.: Yes Procedure Operation Date: 04/16/24 08:00 Actual Procedures p Left Transcarotid Artery Revascularization(Left), Ultrasound localization of right common femoral vein - Melvin Sawyer MD Surgeon Melvin Sawyer MD Lens Generating Machine Tender MD Clarke MoralesMinarchick,PAC Estimated Blood Loss 15 Findings Consistent with Post-Op Diagnosis Anesthesia Type General Complications none Disposition Accompanied Patient To Recovery: No Disposition: Recovery Room
[2024-04-16] MEDS: ceFAZolin 330 MG/ML 1 GM VIAL ONE (09:39)
[2024-04-16] MEDS: BUPIVACAINE/EPINEPHRINE 0.5% MPF 1:200,000 30 ML VIAL ONE (09:59)
[2024-04-16] MEDS: HEPARIN (PORCINE) 1000 UNIT/ML 10 ML (CATH LAB USE ONLY) ONE (10:05)
[2024-04-16] MEDS: HEPARIN 25000 UNIT/500 ML D5W IV ONE (10:06)
--- NOTE | 2024-04-16 10:17 | Operative Report ---
Post Operative Report Pre & Post Diagnosis Operation Date: 04/16/24 08:00 Pre-Op Diagnosis: Symptomatic, Severe Left Carotid Artery Stenosis Post-Op Diagnosis: Symptomatic, Severe Left Carotid Artery Stenosis I identified the patient and participated in the time-out.: Yes Procedure Operation Date: 04/16/24 08:00 Actual Procedures p Left Transcarotid Artery Revascularization(Left), Ultrasound localization of right common femoral vein - Melvin Sawyer MD Surgeon Melvin Sawyer MD Medical Records Clerk MD Shiloh Morales,PAC Estimated Blood Loss 15 Findings See Below Severe calcification of the left carotid artery, improved after balloon angioplasty and stenting. Completion angiogram showed the stent had good wall apposition and there was brisk blood flow through it with no visualized areas of significant narrowing. Specimens None Drains None Anesthesia Type General Complications None Disposition Accompanied Patient To Recovery: Yes Indications 83 year old female with history of symptomatic, high grade left carotid artery stenosis who was found to be a candidate for transcarotid revascularization (TCAR). After discussion of risks and benefits, patient elected to undergo the procedure and consent was obtained. Description of Procedure The patient was brought to the operating room, where lines were placed and general anesthesia was accomplished by anesthesia team. A shoulder roll was placed and the neck was rotated towards the right side of the patient. The left neck and bilateral groins were prepped and patient was draped in the usual sterile fashion. A timeout was performed identifying the correct patient by name, procedure, and location of procedure and all were in agreement. A 4cm transverse incision was made between the sternal and clavicular heads of the sternocleidomastoid muscle. The muscle heads were retracted to each side and the carotid sheath was identified. Using blunt dissection, the carotid sheath was opened and 3cm of common carotid artery (CCA) were isolated. Umbilical tape was placed around the proximal CCA under direct visualization. A 5-0 prolene U- stitch was pre-placed in the anterior wall of the CCA to facilitate hemostasis after removal of the arterial sheath at completion of the procedure. The patient was given 8,000 units of IV heparin. The contralateral (right) common femoral vein was accessed under ultrasound guidance, using an access needle and a wire and sheath were placed using modified Seldinger technique. The venous return sheath was advanced into the common femoral vein over the 0.035" wire. Blood was aspirated from the flow line and the sheath was flushed with heparinized saline.The sheath was secured to the patient's skin with a 2-0 silk stitch to maintain position in the vessel. ACT was confirmed to be above 250 seconds prior to arterial access. Then our attention was turned back to the neck. A 4-Guatemalan non-stiffened micropuncture set was used, puncturing the carotid artery with a 21G needle through the pre- placed U-stitch while holding gentle traction on the umbilical tape to stabilize the CCA within the incision. The micropuncture wire was advanced 3-4cm into the CCA and the 21G needle removed. The micropuncture sheath was advanced 3cm into the CCA and the wire and dilator were removed. A cerebral angiogram was obtained after ensuring there were no air bubbles in the system. The J-tipped guidewire was inserted and we stopped short of the diseased area at the level of the c ommon carotid artery. After micropuncture sheath removal, the transcarotid arterial sheath was advanced to the 3cm marker and the 0.035" wire and dilator were removed. Arterial sheath position was assessed under fluoroscopy. The arterial sheath was sutured to the patient at two sites. The Flow Controller was connected to the transcarotid arterial sheath, prepared by passively allowing arterial blood to backfill the line and then it was connected to the venous return sheath. A repeat cerebral angiogram was obtained to map out the lesion and area we intended to treat. The CCA was clamped proxi jessica with a Steven tourniquet to ensure active flow reversal. Heparinized saline was delivered into the venous flow line to confirm adequate flow reversal. A TCAR timeout was performed, heart rate was >70bpm and systolic BP was >140mmHg. Patient had been pretreated with glycopyrrolate and atropine was available. The lesion was crossed with an 0.014" guidewire with the help of a short Kumpe catheter, given its tortuosity and plaque severity. We then performed pre-dilation balloon angioplasty with a 5x35mm [employer] rapid exchange balloon to 14 atmospheres for about 3 seconds. A 7x40mm ENROUTE transcarotid stent was placed, and a 7x30mm ENROUTE transcarotid stent was placed just proximal to that with a good area of overlap between both stents. Post-dilation balloon angioplasty was performed with a 5.5x25mm [employer] rapid exchange balloon to 12 atmospheres for about 3 seconds at the area of stent overlap and an area that appeared slightly narrower than the rest of the stents. A completion angiogram was performed showing appropriate stent position with good wall apposition and no areas of narrowing. At TCAR case completion, antegrade flow was restored by releasing the tourniquet on the CCA and closing the stopcocks to the flow lines. The total clamp time was 16 minutes. The transcarotid arterial sheath was removed and the pre-placed suture was tied. 25mg of protamine were given. A repeat ACT was obtained and was <160. The venous return sheath was removed and hemostasis achieved with manual compression. The neck incision still had pulsatile bleeding at the area of sheath removal around the prior stitch and we placed another interrupted 5-0 Prolene stitch. We obtained hemostasis with a combination of ties, electrocautery and thrombin Gelfoam. The neck incision was irrigated with antibiotic solution and was hemostatic before closure. 30cc of 0.50% Marcaine with epinephrine were used for local anesthesia around skin edges. The platysma was approximated with 3-0 Vicryl running suture and the skin was closed with 4-0 running Vicryl suture and covered with Dermabond. The patient tolerated the procedure well and was extubated in the operating room. She was moving all four extremities to command prior to transfer to the recovery room. All counts were correct at the end of the procedure. Fluoroscopy time was 4.9minutes, radiation dose was 28mGy and 12cc of contrast were used. Dr. Sawyer was present and scrubbed for all critical parts of the procedure. I attest to the content of the Intraoperative Record and any orders documented therein. Any exceptions are noted below.
[2024-04-16] MEDS: ONDANSETRON INJ 2 MG/ML 2 ML VIAL IV PRN (10:30)
[2024-04-16] MEDS ORDERED: CLOBETASOL PROPIONATE 0.05% CREAM 15 GM TUBE TOP PRN (11:26)
[2024-04-16] MEDS ORDERED: STAT IV Infusion **Titration per Protocol STA (11:26)
[2024-04-16] MEDS ORDERED: PHARMACY GLYCEMIC MGMT CONSULT PRN (11:26)
[2024-04-16] MEDS ORDERED: DESONIDE 0.05% TOP PRN (11:26)
[2024-04-16] MEDS ORDERED: ACYCLOVIR 400 MG TAB PO PRN (11:26)
--- NOTE | 2024-04-16 11:39 | Critical Care Consultation ---
Date of Consultation April 16, 2024 Assessment & Plan (1) History of transcarotid artery revascularization (TCAR): (2) HTN (hypertension): (3) HLD (hyperlipidemia): (4) DM2 (diabetes mellitus, type 2): Plan 1) S/p TCAR - patient w/ mild HARRISON, nausea after procedure - Zofran, 4 mg, IV, PRN for nausea Pain control - Percocet (5/325 mg), PO, q4hrs - Tylenol, 500 mg, PO, q6hrs Infection prophylaxis - Cefazolin, 2000 mg, IV, q8hrs 2) Bradycardia - patient w/ HR's noted in 50s after TCAR procedure - will continue all meds, consider replacing carvedilol in outpatient setting 3) HTN - continue amlodipine, 2.5 mg, PO, QAM - continue carvedilol, 6.25 mg, PO, BID - continue lisinopril, 40 mg, PO, daily 4) S/p TIA--HLD - continue DAPT (aspirin, 81 mg, PO, daily; clopidogrel, 75 mg, PO, daily) - continue atorvastatin, 40 mg, PO, daily 5) T2DM - continue metformin ER, 500 mg, PO, daily 6) Insomnia - trazodone, 50 mg, PO, QHS 7) Chronic hypomagnesemia - MgO, 400 mg, PO, daily Code status: Full code Disposition: ICU Diet: Heart healthy, T2DM Carb consistent Supervising Physician Co-Signing Physician Notes Patient seen and examined. EMR reviewed. [facility]iscussed with [facility] and bedside critical care nurse. Agree with assessment plan as noted. Patient is doing well status post TCAR. Will continue neurovascular checks. Continue blood pressure management. Otherwise issues have been well addressed by the vascular surgery service. Will observe overnight for any significant clinical changes. History of Present Illness Reason for Consultation: S/p TCAR (total carotid artery revascularization) Attending Physician: Melvin Sawyer MD History of Present Illness Patient is 83 yo F w/ a PMHx of HLD, HTN, T2DM, l. hip bursitis, AMY, GERD, anemia, peripheral neuropathy, s/p cholecystectomy, Hx of total hysterectomy, Hx of intestinal surgery (d/t SBO) who was admitted to the critical service following a TCAR. Patient feeling 'about as expected' after the procedure, endorsing a mild-moderate HARRISON of 5/10 severity (primarily in occipital region), nausea, and moderate fatigue. Denies CP and palpitations, AP and vomiting, numbness or tingling anywhere, or any urinary symptoms. Allergies Allergy/AdvReac Type Severity Reaction Status Date / Time Bleach (Sodium Hypochlorite) AdvReac Severe hives, Verified 04/16/24 06:10 itching, rash morphine AdvReac Mild SEVERE Verified 04/16/24 06:10 NAUSEA AND VOMITING Home Medications Medication Instructions Recorded Confirmed Type acetaminophen 500 mg tablet 500 mg PO Q6H PRN Pain 03/29/24 04/16/24 History (Tylenol Extra Strength) acyclovir 400 mg tablet 400 mg PO BID PRN flare up 03/29/24 04/16/24 History amlodipine 2.5 mg tablet 2.5 mg PO QAM 03/29/24 04/16/24 History carvedilol 6.25 mg tablet 6.25 mg PO BID 03/29/24 04/16/24 History clobetasol 0.05 % topical cream 1 applic topical BID PRN flare 03/29/24 04/16/24 History desonide 0.05 % topical cream 1 applic topical BID PRN flare up 03/29/24 04/16/24 History lisinopril 40 mg tablet 40 mg PO QAM 03/29/24 04/16/24 History magnesium oxide 500 mg PO DAILY 03/29/24 04/16/24 History metformin 500 mg tablet,extended 500 mg PO QAM 03/29/24 04/16/24 History release 24 hr peg 400-propylene glycol (PF) 0.4 1 drp ophthalmic (eye) BID 03/29/24 04/16/24 History %-0.3 % eye drops in a dropperette (Systane (PF)) aspirin 81 mg tablet,delayed 81 mg PO QAM #30 tabs 03/31/24 04/16/24 Rx release clopidogrel 75 mg tablet 75 mg PO QAM 19 days #19 tabs 03/31/24 04/16/24 Rx trazodone 100 mg tablet 50 mg (1/2 x 100 mg) PO HS #0 tabs 03/31/24 04/16/24 Rx atorvastatin 20 mg tablet 40 mg PO QAM 04/05/24 04/16/24 History Patient History Medical History (Updated 04/16/24 @ 13:20 by Madhuri Hathaway RN) History of TIA (transient ischemic attack) Encounter for pre-operative examination History of COVID-19 (02/05/24) pt. reports testing pos at her doctor office Hyponatremia Carotid stenosis Hip bursitis, left Hx-TIA (transient ischemic attack) (02/2024) recent admit to [facility], symptoms of speech difficulty have completely improved adn pt. reports no ongoing symptoms AMY (generalized anxiety disorder) Hx SBO History of Holter monitoring currently has, will complete on 04/16 GERD (gastroesophageal reflux disease) Hyperlipidemia Hypertension Anemia Wound infection (02/2024) right leg, inside of calf, due to a fall, currently taking cephalexin, states wound is resolving, will see the wound center at [facility], wound is dry, per pt. DM2 (diabetes mellitus, type 2) Peripheral neuropathy Amputated toe partial, left toe Surgical History (Updated 04/16/24 @ 13:44 by Dany Ibarra MD) No history of previous surgery History of intestinal surgery due to sbo History of trabeculectomy left eye History of arthroscopy of right shoulder Hx of colonoscopy Hx of esophagogastroduodenoscopy Hx of toe surgery multiple- bunionectomies, amputation of tips of toes History of carpal tunnel release of both wrists Hx of total hysterectomy Hx of total knee arthroplasty S/P cholecystectomy Hx of bilateral cataract extraction Family History Other Hypertension Social History Smoking Status: Never smoker Second Hand Exposure: No; Do You Dip or Chew Tobacco: No; Tobacco Cessation Education Requested by Patient: No Hx Alcohol Use: No Hx Substance Use: No Preferred Language: Grenadian Communication Ability: Effective Visual Impairment: Limited Hearing Ability: Normal Complaint Operator Required: No Beliefs That Will Affect Care: None marital status: Current Living Situation: Spouse current occupational status: retired Other Information That Helps Us Care for You: No Feels Safe at Home: Yes Safety Concerns: Feels Safe At This Time Diet: regular caffeine: Yes during the past year weight has: remained stable Gender Identity: Female Assistive Devices: Walker Review of Systems Constitutional: + fatigue; no fever and no chills Eyes: no diplopia, not seeing flashes and no worsening vision Ear, Nose, Mouth, Throat: + sore throat; no nasal congestion, no n sarita discharge and no post nasal drip Respiratory: no cough and no dyspnea Cardiovascular: no chest pain and no palpitations Gastrointestinal: + nausea; no abdominal pain and no vomit ing Genitourinary: no dysuria and no urinary frequency Neurologic: + headache(s); no tingling, no numbness and no abnormal speech Physical Exam Constitutional: WD/WN, vitals as above Eyes: PERRL, conjunctivae normal, anicteric sclerae Neck: + abnormal visual inspection (bruising n oted over left neck, upper sternum) and neck nontender Respiratory: normal respiratory effort, lungs clear to auscultation Cardiovascular: RRR, no murmur, no edema Extremities: normal capillary refill; no calf tenderness and no pedal edema Chest (Breasts): Additional Comments: see above under Neck comments Gastrointestinal (Abdomen): normal bowel sounds, soft, nontender, no hepatosplenomegaly Neurologic: moves all extremities and awake Speech / Cognition: normal speech, no anomia, no expressive aphasia, no receptive aphasia and normal cognition Cranial Nerves: PERRL, EOM intact bilaterally, tongue midline and able to elevate shoulders bilaterally Psychiatric: A+Ox3, euthymic affect Results & Data Results & Data Vital Signs (Past 12 Hours) Vital Signs Temp Pulse Pulse Resp BP BP BP 04/16/24 11:21 36.7 C 04/16/24 11:18 63 15 04/16/24 11:00 60 18 122/51 L 115/59 L 04/16/24 10:50 36.4 C L 64 16 124/53 L 114/57 L 04/16/24 10:40 65 15 103/65 116/57 L 04/16/24 10:30 69 16 101/60 98/67 L 04/16/24 10:22 36.0 C L 76 16 137/54 L 98/57 L 04/16/24 06:25 36.7 C 64 20 160/71 H 151/62 H Pulse Ox O2 Del Method O2 Flow Rate 04/16/24 11:21 04/16/24 11:18 95 04/16/24 11:00 97 Nasal Cannula 2 04/16/24 10:50 98 Nasal Cannula 2 04/16/24 10:40 97 Oxymask 4 04/16/24 10:30 99 Oxymask 4 04/16/24 10:22 98 Oxymask 6 04/16/24 06:25 96 Room Air
--- NOTE | 2024-04-16 11:39 | Anesthesiology Progress Note ---
Date of Service April 16, 2024 Anesthesia Post Procedure Vital Signs Vital Signs: Temp Pulse Pulse Resp BP BP BP 04/16/24 11:21 36.7 C 04/16/24 11:18 63 15 04/16/24 11:00 60 18 122/51 L 115/59 L 04/16/24 10:50 36.4 C L 64 16 124/53 L 114/57 L 04/16/24 10:40 65 15 103/65 116/57 L 04/16/24 10:30 69 16 101/60 98/67 L 04/16/24 10:22 36.0 C L 76 16 137/54 L 98/57 L 04/16/24 06:25 36.7 C 64 20 160/71 H 151/62 H Pulse Ox O2 Del Method O2 Flow Rate 04/16/24 11:21 04/16/24 11:18 95 04/16/24 11:00 97 Nasal Cannula 2 04/16/24 10:50 98 Nasal Cannula 2 04/16/24 10:40 97 Oxymask 4 04/16/24 10:30 99 Oxymask 4 04/16/24 10:22 98 Oxymask 6 04/16/24 06:25 96 Room Air Pain Intensity Left Groin: Pain Intensity: 2 Right Ankle: Pain Intensity: 8 Transfer of Care Handoff Completed per policy Notes Mental Status: alert / awake / arousable and participated in evaluation Patient Amnestic to Procedure: Yes Nausea / Vomiting: adequately controlled Pain: adequately controlled Airway Patency, RR, SpO2: stable & adequate BP & HR: stable & adequate Hydration State: stable & adequate Anesthetic Complications: no major complications apparent and Pt Satisfied with anesthetic care
--- NOTE | 2024-04-16 11:42 | Anesthesia Procedure Note ---
Anesthesia Procedure Note Arterial Line Note Patient medical history, medications, allergies and vitals reviewed. Consent: Risk / Benefits Reviewed With: PT / POA / Parent / Guardian, Accepts Plan, Informed Consent Obtained and All Questions Answered Monitors attached: Blood Pressure, CO2, EKG and Pulse Oximetry Time out completed: Yes Premedication: Fentanyl (mcg) (25) Laterality: Left Location: Radial Hand hygeine: Soap and water and Alcohol based hand rub Equipment/Supplies: Cap, Mask, Sterile gown, Sterile gloves, Sterile drapes and Sterile procedures used Skin prep: Chloraprep Local medication: 1% Lidocaine (ml) Ultrasound used: Yes US equipment and supplies: Sterile Gel and Sterile Probe Cover Attempts: 1 Procedure Summary: 20 gauge angiocath advanced until return of bright red blood. Catheter threaded using seldinger technique with return of pulsatile, bright red blood. Catheter secured with tape and covered with occlusive dressing. Waveform consistent with correct arterial placement. After placement, normal perfusion was observed distal to the site of catheter placement. Post-Procedure: Pt hemodynamically stable, Pt tolerates well and No complication Anesthesia Charges Arterial Line A Line Charges: 83462 Insert Art line Samp/Mon/Salmon
[2024-04-16] MEDS: ACETAMINOPHEN 500 MG TAB PO PRN (12:17)
[2024-04-16] MEDS: LACTATED RINGER'S 1,000 ML IV SCH (12:18)
[2024-04-16] MEDS ORDERED: DEXTROSE 50% 50 ML SYRINGE IV PRN (12:30)
[2024-04-16] MEDS ORDERED: GLUCOSE 40% GEL 15 GM TUBE PO PRN (12:30)
[2024-04-16] MEDS ORDERED: GLUCAGON FOR INJ 1 MG VIAL IM PRN (12:30)
[2024-04-16] MEDS ORDERED: CARBOHYDRATES FOR HYPOGLYCEMIA PO PRN (12:30)
[2024-04-16] MEDS ORDERED: GLUCOSE 10 TAB/TUBE PO PRN (12:30)
--- NOTE | 2024-04-16 12:30 | Pharmacy Report ---
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 It does not appear that steroids were given periop for PONV prevention. * Will utilize Novolog SQ with dosing parameters based upon "mild" to "moderate" stress and weight. Will forego basal insulin at this time. PLAN FOR INPATIENT GLYCEMIC CONTROL: * Hold outpatient oral diabetes medications (metformin) * Basal insulin * none, continue to monitor FBS * Bolus insulin * NovoLog per scale ACHS or Q6hrs while NPO * Goal Range: Low 110 mg/dL - High 160 mg/dL * Correction Factor: 25 mg/dL/unit * Nutritional / Prandial insulin per carb ratio of 1 unit per 15 grams CHO consumed
[2024-04-16] MEDS: oxyCODONE/ACETAMINOPHEN 5mg/325mg TAB PO PRN (13:02)
--- NOTE | 2024-04-16 14:25 | Billing Data ---
Date of Service April 16, 2024 Coding Level of Care Code 33138 INT INP/OBS CARE
[2024-04-16] MEDS: PHENYLEPHRINE/NSS 25 MG/250 ML BAG IV PRN (17:04)
[2024-04-16] MEDS: INSULIN ASPART PER UNIT CHARGE SC SCH (17:26)
[2024-04-16] MEDS: PSEUDOEPHEDRINE HCL 30 MG TAB PO SCH (17:50)
[2024-04-16] MEDS: carvediloL 6.25 MG TAB PO SCH (20:23)
[2024-04-16] MEDS: traZODone HCL 50 MG TAB PO SCH (20:37)
[2024-04-17 05:11] VITALS: TEMP 97.9
--- NOTE | 2024-04-17 08:04 | Critical Care Progress Note ---
Date of Service April 17, 2024 Assessment & Plan (1) History of transcarotid artery revascularization (TCAR): (2) HTN (hypertension): (3) HLD (hyperlipidemia): (4) DM2 (diabetes mellitus, type 2): Plan 1) S/p TCAR - patient w/out concerning PE or ROS this morning, no evidence of hematoma around incision - Zofran, 4 mg, IV, PRN for nausea Pain control - Percocet (5/325 mg), PO, q4hrs - Tylenol, 500 mg, PO, q6hrs Infection prophylaxis - Cefazolin, 2000 mg, IV, q8hrs S/p stent placement - continue DAPT (aspirin, 81 mg, PO, daily; clopidogrel, 75 mg, PO, daily) 2) Bradycardia - patient w/ HR's noted as low as 47 after TCAR procedure - carvedilol held due to HR and/or BP parameters - will continue all meds, consider replacing carvedilol in outpatient setting 3) HTN - continue amlodipine, 2.5 mg, PO, QAM (has been held due to parameters) - continue carvedilol, 6.25 mg, PO, BID (has been held due to parameters) - continue lisinopril, 40 mg, PO, daily (has been held due to parameters) 4) S/p TIA--HLD - continue DAPT (aspirin, 81 mg, PO, daily; clopidogrel, 75 mg, PO, daily) - continue atorvastatin, 40 mg, PO, daily 5) T2DM - continue metformin ER, 500 mg, PO, daily 6) Insomnia - trazodone, 50 mg, PO, QHS 7) Chronic hypomagnesemia - MgO, 400 mg, PO, daily Code status: Full code Disposition: ICU Diet: Heart healthy, T2DM Carb consistent Admission and Anticipated Discharge Date Admission Date: April 16, 2024 Supervising Physician Co-Signing Physician Notes Patient seen and examined. EMR reviewed. Discussed with bedside critical care nurse and on multidisciplinary rounds as well as with family practice resident. Agree with assessment plan as noted above. Patient is doing well clinically. Arterial line will be discontinued. Disposition per vascular surgery service. Critical care issues have resolved and critical care will sign off. Feel free to contact us with questions or concerns Subjective Patient feeling subjectively better this morning, up and out of bed sitting in the chair this morning, more alert. Decreased headache (mild, +1/10), improved sore throat, resolved nausea compared to yesterday. Specifically denies any vision changes, dysphagia or dysphonia, CP or palpitations, AB/N/V. Patient AAO x 4, able to eat some of her breakfast, converse normally. Endorses moderate tenderness around the left collarbone area where the incision was made, but no restricted neck motion. Review of Systems Constitutional: no fever, no chills and no fatigue Eyes: no diplopia, not seeing flashes and no worsening vision Ear, Nose, Mouth, Throat: + sore throat (improved over yesterday); no nasal congestion, no nasal discharge and no post nasal drip Respiratory: no cough and no dyspnea Cardiovascular: no chest pain and no palpitations Gastrointestinal: no abdominal pain, no nausea and no vomiting Genitourinary: no dysuria and no urinary frequency Neurologic: + headache(s) (mild, improved, 1/10); no tingling, no numbness and no abnormal speech Physical Exam Constitutional: WD/WN, vitals as above Eyes: PERRL, conjunctivae normal, anicteric sclerae Neck: trachea midline and + neck tender; + abnormal visual inspection (bruising noted over left neck, upper sternum) Respiratory: normal respiratory effort, lungs clear to auscultation Cardiovascular: RRR, no murmur, no edema Extremities: normal capillary re fill; no calf tenderness and no pedal edema Gastrointestinal (Abdomen): normal bowel sounds, soft, nontender, no hepatosplenomegaly Neurologic: moves all extremities and awake Speech / Cognition: normal speech, no anomia, no expressive aphasia, no receptive aphasia and normal cognition Cranial Nerves: PERRL, EOM intact bilaterally, tongue midline and able to elevate shoulders bilaterally Psychiatric: A+Ox3, euthymic affect Results & Data Results & Data Vital Signs (Past 12 Hours) Vital Signs Temp Pulse Resp BP Pulse Ox 04/17/24 06:01 139/63 04/17/24 05:39 53 L 18 99 04/17/24 05:00 48 L 17 97 04/17/24 04:36 50 L 19 90 04/17/24 04:00 36.6 C 04/17/24 03:06 48 L 18 04/17/24 02:03 48 L 19 04/17/24 01:57 47 L 15 92 04/17/24 01:06 49 L 20 94 04/17/24 00:51 48 L 04/17/24 00:48 36.5 C 04/17/24 00:12 53 L 17 124/58 L 98 04/16/24 23:57 48 L 19 97 04/16/24 23:00 46 L 17 99 04/16/24 22:08 101/41 L 04/16/24 21:57 63 21 111/50 L 90 04/16/24 21:30 101/53 L 04/16/24 21:18 47 L 19 91 04/16/24 20:30 115/52 L 04/16/24 20:27 46 L 17 93 04/16/24 20:12 50 L 17 92 04/16/24 20:00 112/58 L
[2024-04-17] MEDS: amLODIPine BESYLATE 5 MG TAB PO SCH (08:36)
[2024-04-17] MEDS: lisinopril 40 MG TAB PO SCH (08:37)
[2024-04-17] MEDS: MAGNESIUM OXIDE 400 MG TAB PO SCH (09:12)
[2024-04-17] MEDS: ASPIRIN 81 MG ECTAB PO SCH (09:12)
[2024-04-17] MEDS: ATORVASTATIN 40 MG TAB PO SCH (09:12)
[2024-04-17] MEDS: CLOPIDOGREL BISULFATE 75 MG TAB PO SCH (09:12)
--- NOTE | 2024-04-17 10:08 | Billing Data ---
Date of Service April 17, 2024 Coding Level of Care Code 32090 INT INP/OBS CARE
[2024-04-17 12:46] VITALS: BP 104/58; PULSE 67; RESP 19; O2SAT 96
--- NOTE | 2024-04-17 13:18 | Surgery Progress Note ---
Date of Service April 17, 2024 Assessment & Plan (1) History of transcarotid artery revascularization (TCAR): Plan: POD #1 from a right tcar. No complications post op. D/C today Admission and Anticipated Discharge Date Admission Date: April 16, 2024 Subjective Patient with no complaints. Denies any focal deficits. Physical Exam Constitutional: WD/WN, vitals as above Neck: trachea midline Respiratory: normal respiratory effort; no respiratory distress Cardiovascular: Rate/Rhythm: regular rate and regular rhythm Skin: + incision (incision dry and clean) Neurologic: CN's II-XI intact bilaterally and moves all extremities Results & Data Vital Signs (Past 12 Hours) Vital Signs Temp Pulse Resp BP Pulse Ox O2 Del Method 04/17/24 12:09 67 19 96 04/17/24 12:06 104/58 L 04/17/24 12:01 93/51 L 04/17/24 11:57 72 20 92 04/17/24 11:24 56 L 19 94 04/17/24 11:18 102/49 L 04/17/24 11:18 102/49 L 04/17/24 11:18 102/49 L 04/17/24 11:15 61 18 95 Room Air 04/17/24 11:09 65 17 04/17/24 10:15 53 L 21 94 Room Air 04/17/24 10:01 145/83 H 04/17/24 09:57 51 L 19 95 Room Air 04/17/24 09:03 50 L 16 92 04/17/24 09:00 116/42 L 04/17/24 09:00 116/42 L 04/17/24 08:57 54 L 21 96 04/17/24 08:27 52 L 16 96 04/17/24 08:26 91/59 L 04/17/24 08:24 58 L 18 94 Room Air 04/17/24 08:12 64 18 04/17/24 08:00 66 04/17/24 08:00 71 16 93 04/17/24 06:01 139/63 04/17/24 05:39 53 L 18 99 04/17/24 05:00 48 L 17 97 04/17/24 04:36 50 L 19 90 04/17/24 04:00 36.6 C 04/17/24 03:06 48 L 18 04/17/24 02:03 48 L 19 04/17/24 01:57 47 L 15 92
--- NOTE | 2024-04-17 13:23 | Discharge Summary ---
Date of Service April 17, 2024 Admission HPI Per Admitting Provider Name: KENIA ACUÑA Patient Number: [id number] : 1940 Date of Service: 04/04/2024 Chief Complaint: _New patient consultation for symptomatic left ICA stenosis HPI: _Mrs. Acuña is an elderly female who presents to Dr. Sawyer's vascular surgery clinic today as a new patient in consultation for symptomatic left ICA stenosis. Patient states that she was at home in her normal state of health, and suddenly developed slurred/garbled speech, where she was unable to get the words out that she wanted to say. She states that the symptoms lasted about 30 minutes before resolving completely. She has had no previous similar symptoms in the past, nor has she had any TIAs prior to this. She denies any amaurosis, facial droop, unilateral extremity weakness numbness or tingling, or difficulty understanding her speaking to her. She did go to the emergency department, where she was found to have about 70% stenosis of her left ICA, and 60 to 70% stenosis of the right ICA on a neck CTA. Brain MRI did not demonstrate any CVA. She has had no recurrence of symptoms. She does ambulate with a rolling walker due to some right foot and ankle instability, and did s trike her right medial hickey on something about 3 weeks ago. She states the area became somewhat reddened and developed a scab over it, and is healing but very slowly. She denies headache, fever, chest pain, shortness of breath, abdominal pain, nausea, vomiting, rest pain, claudication, other nonhealing wounds or ulcers, other complaints. Review of systems: A total of 14 systems were reviewed and are negative aside from what is related in her HPI Imaging: Neck CTA performed at [facility] demonstrates 60 to 70% stenosis of her bilateral ICAs, this appears somewhat worse in the left than the right. Brain MRI also performed at [facility] demonstrates no acute CVA. Current Home Meds: (Last Updated 04/04 10:26) acyclovir PRN amLODIPine (amLODIPine 2.5 mg oral tablet) TAKE 1 TABLET BY MOUTH EVERY DAY aspirin (aspirin 81 mg oral delayed release tablet) 81 mg PO Daily atorvastatin (atorvastatin 40 mg oral tablet) 40 mg PO Daily carvedilol (carvedilol 6.25 mg oral tablet) TAKE 1 TABLET BY MOUTH TWICE A DAY WITH BREAKFAST AND DINNER cephalexin (Keflex 500 mg oral capsule) 500 mg PO tid clobetasol topical (clobetasol 0.05% topical cream) 1 appl topical bid to affected area, do not use longer than 2 weeks clopidogrel (clopidogrel 75 mg oral tablet) 75 mg PO Daily fluocinonide topical (fluocinonide 0.05% topical solution) PRN: rash apply to scalp dermatitis bid as needed lisinopril (lisinopril 40 mg oral tablet) 40 mg PO Daily magnesium oxide (magnesium oxide base 500 mg oral tablet) 1,000 mg metformin (metformin 500 mg oral tablet) 500 mg PO bid ocular lubricant (Systane Ultra ophthalmic solution) bid tavaborole topical (Kerydin 5% topical solution) 1 appl topical Daily Apply to affected toenails once per day for 6 months traZODone (traZODone 100 mg oral tablet) 0.5 tab po q HS Allergies and Sensitivities: sodium hypochlorite topical liquid morphine(Vomiting) Past Medical History: Problems: Bilateral carotid artery stenosis Callus Tinea unguium Skin ulcer of toe of left foot Pes planus of both feet Hammertoe, bilateral Diabetic neuropathy DM (diabetes mellitus) Pes planus of right foot Arthritis of both feet Toe amputee Actinic keratosis Seborrheic keratosis Elevated cholesterol HTN (hypertension) Surgical history: Today for tonsillectomy, cholecystectomy, hysterectomy, bunionectomy, bowel resection, bilateral total knee arthroplasties Family history: Positive for stroke, hypertension Social history: Patient is a lifelong non-smoker, she does have an occasional alcoholic beverage usually in the form of wine. She denies any illicit drug use. She is and lives with her . OBJECTIVE Vitals: Last Updated 04/04/24 10:35 Date Temp BP Location Pulse RR SpO2 Pain 04/04/24 172/72 Right Arm 04/04/24 172/70 Left Arm 61 98 0 03/28/24 0 Vital Signs are the last 3 documented. No Orthostatic Data Available Height and Weight: Last Updated 03/28/24 13:53 Date BMI Wt(kg) Wt(lb) Method Ht(cm) (ft-in) Method 03/28/24 30.96 76.7 169 Standing Scale 157.4 5-2 12/08/23 30 76.8 169 Standing Scale 160 5-3 Standing 08/23/23 31.97 78.3 172 Standing Scale 156.5 5-1 Heights and Weights are the last 3 documented. Physical Exam Constitutional: In general patient is a healthy-appearing well-nourished well- developed elderly female in no distress. She is alert and oriented without focal deficits. Her eyes are EOMI, her trachea is midline. Her carotids demonstrate faint bruit. Her heart is regular, her lungs are decreased slightly but clear. Her abdomen is soft and nontender with no active bowel sounds in all 4 quadrants. Brachial and radial pulses are +3. Femoral pulses are +3. Right lower extremity DP pulses +2, PT is +1 and difficult to palpate due to ankle deformity. Left lower extremity DP and PT pulses are +2. She has brisk capillary refill and no sign of distal ischemia. She does have a scab on her right mid hickey, which is loosening of the ankles and beginning to heal. There is minimal local erythema here which is not expanding from a previous gasper placed a week ago. Is not particularly warm or odor or drainage noted. ASSESSMENT: _ PLAN: _ 1 ) _symptomatic left ICA stenosis Patient does have bilateral ICA stenosis, which appears somewhat worse on the left side than the right based on CTA. She unfortunately did suffer an episode of expressive aphasia lasting about 30 minutes 1 week ago. She was admitted to [facility] and started on DAPT, and her dose of atorvastatin was increased to 80 mg. Due to the symptomatic left ICA disease, we recommend that she undergo surgical intervention. Patient was also seen by Dr. Sawyer in the office today. The procedures, risks, benefits, alternatives of carotid endarterectomy versus TCAR were discussed at length with the patient, and her present. Patient elects to proceed with TCAR. The risks of the surgery including but not limited to CVA, heart attack, , bleeding, infection, local nerve injury, blood clots, or discussed at length with the patient and her . Patient expresses understanding and agreement to proceed. This to be scheduled in the next 2 weeks or so at patient's convenience. She is to remain on her DAPT, and is aware she will require this at least 1 year postoperatively. There advised to call any other questions or concerns. Thank you for letting us participate in the care of this patient. I have personally spent_49__ minutes performing [id number] and [id number]- face activities on this date of service.Time does not include separately reported services. Activities Include: _x_ review of the medical record _x_ obtaining a history _x_ physical exam/evaluation _x_ review labs _x_ review radiology reports _x_ counseling/educating patient/family/caregiver __ discussion/referral to other healthcare professional _x_ documenting care in the medical record __ independent interpretation of results x__ communication of results to patient/family/caregiver x__ coordination of care Signature Line Electronic Signature on File CC: Steven Waterman, DO [address] [facility] [id number] * Electronically Reviewed/Signed by: Isabel Fernández PA-C Author Signature Dt/Tm:04/04/2024 12:28 PM [facility] [address], [address] [place] [address] LM Result Type: HVI Outpt Note Date of Service: April 04, 2024 12:18 EDT Authorization Status: Final Author or Import Date: BETHANIE Fernández Lynn on April 04, 2024 12:28 EDT Verified By: BETHANIE Fernández Lynn on April 04, 2024 12:28 EDT Encounter info: [id number], [facility], Clinic, 04/04/2024 - 04/04/2024 Admission Exam Per Admitting Provider Constitutional: In general patient is a healthy-appearing well-nourished well- developed elderly female in no distress. She is alert and oriented without focal deficits. Her eyes are EOMI, her trachea is midline. Her carotids demonstrate faint bruit. Her heart is regular, her lungs are decreased slightly but clear. Her abdomen is soft and nontender with no active bowel sounds in all 4 quadrants. Brachial and radial pulses are +3. Femoral pulses are +3. Right lower extremity DP pulses +2, PT is +1 and difficult to palpate due to ankle deformity. Left lower extremity DP and PT pulses are +2. She has brisk capillary refill and no sign of distal ischemia. She does have a scab on her right mid hickey, which is loosening of the ankles and beginning to heal. There is minimal local erythema here which is not expanding from a previous gasper placed a week ago. Is not particularly warm or odor or drainage noted. Principal Diagnosis Left internal carotid artery stenosis Discharge Exam Constitutional WD/WN, vitals as above Neck trachea midline Respiratory normal respiratory effort; no respiratory distress Cardiovascular Rate/Rhythm: regular rate and regular rhythm Skin + incision (incision dry and clean) Neurologic CN's II-XI intact bilaterally and moves all extremities Discharge Data Allergies Allergy/AdvReac Type Severity Reaction Status Date / Time Bleach (Sodium Hypochlorite) AdvReac Severe hives, Verified 04/16/24 06:10 itching, rash morphine AdvReac Mild SEVERE Verified 04/16/24 06:10 NAUSEA AND VOMITING Consultations 04/16/24 11:26 Consult Classifier Routine Procedures Performed Operation Date: 04/16/24 08:00 Actual Procedures p Left Transcarotid Artery Revascularization(Left) - Melvin Sawyer MD Ordered Studies 04/16/24 07:08 EV angio carotid cerv LT Routine US EV guide vascular access Routine Hospital Course (1) History of transcarotid artery revascularization (TCAR): POD #1 from a right tcar. No complications post op. D/C today Total Time Total Time Spent Total Time Spent (In Minutes): 0 Discharge Plan Discharge Items Patient Disposition: Home - Self-Care Reason For Visit: Left Carotid Stenosis Discharge Diagnosis: Left internal carotid artery stenosis Non-emergency contact: Surgeon Call non-emergency contact if: your temperature is above 101.5, your wound has increased redness, your wound has increased drainage and your wound pain has increased Follow-up/Referrals: Steven Waterman, [Primary Care Provider] - Diet: Carb Consistent or DM2 and Heart Healthy Addtl Attending Provider Instructions: SPECIAL CARE INSTRUCTIONS: Medications: * Continue to take Aspirin, Plavix and statin as directed. Incision Care: * You may shower, but do not rub incision. You may let the warm soapy water run over it. Be sure to dry the incision well after bathing. * Do not shave directly over the incision until it is healed. * DO NOT IMMERSE THE INCISION IN A TUB/POOL/etc. UNTIL HEALED. Restrictions: * Do not drive for at least one week or if you are still taking any narcotic pain medication. * Do not lift anything heavier than a gallon of milk for one week after going home. Possible Complications: * Numbness - It is normal to have some numbness around the incision. Numbness can extend beyond the incision to areas of the neck, ear and face. The numbness is due to bruising of nerves during the surgery and will gradually improve over a period of months. * Hoarseness/Difficulty Speaking and Swallowing - The bruising of nerves in the neck can also cause a hoarse voice, difficulty speaking or swallowing. This may improve over time, HOWEVER, if it continues for more than a few days please contact our office ([phone]). * Excessive Swelling - There will be some swelling immediately after surgery which usually resolves within one week. If you notice that the swelling is getting worse, notify your surgeon ([phone]). * Drainage/Bleeding - If there is any drainage or bleeding, it should be a very small amount (less than a teaspoon per day). If you have excessive bleeding or drainage from the incision, call your surgeon ([phone]) right away. ACTIVATION OF EMERGENCY MEDICAL SYSTEM: Call 911, immediately, if you experience any of the following: Warning Signs and Symptoms of Stroke: * Sudden numbness or weakness of the face, arm or leg, especially on one side of the body * Sudden confusion, trouble speaking or understanding * Sudden trouble seeing in one or both eyes * Sudden trouble walking, dizziness, loss of balance or coordination * Sudden severe headache with no cause Do not delay calling 911 if you experience any warning signs or symptoms of a stroke. Delay in seeking medical attention may affect what treatments can be given to you. Risk Factors for Stroke: You can reduce your chances of stroke by working with your medical provider to adopt a healthy lifestyle. Some specific ways to lower your chance of stroke are: * If you are a smoker, now is the time to stop smoking cigarettes * If you are diabetic, improve the control of your blood sugars * Avoid excessive amounts of alcohol * Control high blood pressure * Lose weight if you are overweight * Be sure to lead an active lifestyle * Eat a healthy diet low in salt, cholesterol and fat You should know about other risk factors for stroke that you are unable to cont rol. These include: * Age 55 years or older * Male gender * Certain racial groups: , or / * Family History of Stroke, Mini stroke or Heart Attack * Sickle Cell Disease You will be receiving a call from the Vascular Surgery Nurse after you are discharged. FOLLOW UP VISIT: It is important for you to keep your follow up appointments with your medical provider. Keep any scheduled doctor appointments. Call [phone] to schedule a follow up appointment if one not already scheduled. Pending Studies at Discharge: No Stand-Alone Forms: My [facility], Smoking Cessation Medications and DC Order Prescriptions: New oxycodone-acetaminophen [Percocet] 5-325 mg tablet 1 tab PO Q8H PRN (Reason: pain) Qty: 10 0RF Continued atorvastatin 20 mg tablet 40 mg PO QAM desonide 0.05 % Cream 1 applic TOPICAL BID PRN (Reason: flare up) carvedilol 6.25 mg tablet 6.25 mg PO BID clobetasol 0.05 % Cream 1 applic TOPICAL BID PRN (Reason: flare) amlodipine 2.5 mg tablet 2.5 mg PO QAM acyclovir 400 mg Tablet 400 mg PO BID PRN (Reason: flare up) acetaminophen [Tylenol Extra Strength] 500 mg Tablet 500 mg PO Q6H PRN (Reason: Pain) magnesium oxide 500 mg magnesium Tablet 500 mg PO DAILY lisinopril 40 mg tablet 40 mg PO QAM metformin 500 mg tablet extended release 24 hr 500 mg PO QAM Systane (PF) 0.4-0.3 % Dropperette 1 drp OPHTHALMIC (EYE) BID clopidogrel 75 mg Tablet 75 mg PO QAM 19 Days Qty: 19 0RF aspirin 81 mg Tablet,Delayed Release (Dr/Ec) 81 mg PO QAM Qty: 30 0RF trazodone 100 mg tablet 50 mg PO HS Qty: 0 0RF Discharge Orders: Discharge Order (Routine); Ordered 04/17/24 Ordered By: Melvin Sawyer Admission Data Admit Date/Time: 04/16/24 07:33 Attending Provider: Melvin Sawyer Admit Provider: Melvin Sawyer Primary Care Provider: Steven Waterman Other Providers: Huey Alonso; Sundeep Bedolla; Homar Dykes; Guru Montalvo; Rafal Love; Debby Christie; Yordan Corona; Sandrine Montalvo; Rain Oneal; Mir Santos; Trevor Morales; Karyn Vásquez
--- NOTE | 2024-04-18 06:00 | Electrocardiogram Report ---
Test Reason : Blood Pressure : */* mmHG Vent. Rate : 48 BPM Atrial Rate : 48 BPM P-R Int : 206 ms QRS Dur : 88 ms QT Int : 510 ms P-R-T Axes : 55 -26 28 degrees QTcB Int : 455 ms Sinus bradycardia Septal infarct , age undetermined Abnormal ECG When compared with ECG of 29-Mar-2024 19:24, Vent. rate has decreased by 33 bpm Confirmed by Otto Chance ([id number]) on 04/18/2024 6:00:01 AM Referred By: Melvin Sawyer Confirmed By: Otto Chance
== END 2024-04-17 13:55 | disposition home or self-care (01) | DRG 36 ==
LOC: ASU 05:56 → 1E 07:33
PROC: EV.TCAR (2024-04-16 08:00)

== ENCOUNTER 2024-08-19 18:44 | Inpatient (IN) ==
[2024-08-19 20:02] LABS: Hematocrit (blood only) 38.5 % (37.0-47.0); Hemoglobin 13.6 g/dl (12.0-16.0); Mean Corpuscular Hemoglobin 35.3 pg (25.0-34.0); Mean Corpuscular Hgb Conc 35.3 g/dL (32.0-36.0); Mean Platelet Volume 8.6 fL (9.4-12.4); Platelet Count 246 K/uL (130-400); RDW Coefficient of Variation 12.1 % (11.5-14.5); RDW Standard Deviation 44.1 fL (36.4-46.3); Red Blood Count 3.85 M/uL (4.20-5.40); White Blood Count 11.69 K/ul (4.8-10.8)
[2024-08-19 20:15] LABS: Albumin Globulin Ratio 1.8 (0.9-2); Albumin Level 4.6 gm/dl (3.4-5.0); BUN Creatinine Ratio 20.2 (10-20); Bilirubin,Total 0.7 mg/dl (0.2-1.0); Calcium 9.9 mg/dl (8.6-10.3); Creatinine Clr Calc Pharmacy 49.6 ml/min; Globulin 2.5 gm/dl (2.5-4.0); Potassium 3.8 mmol/L (3.5-5.1); Total Protein 7.1 gm/dl (6.0-8.3)
[2024-08-19 20:21] LABS: Troponin I High Sensitivity 7.3 pg/ml (0-14)
[2024-08-19 20:27] LABS: Partial Thromboplastin Time 28 Seconds (21-31); Prothrombin Time 10.6 Seconds (9.0-12.0)
--- NOTE | 2024-08-19 20:48 | Emergency Department Note ---
Impression & Plan Acute lower GI bleeding, Hematochezia ED Provider Note NAME: KENIA ACUÑA AGE: 83 SEX: F : 1940 ARRIVES VIA: Walk-In INFORMANT: Patient, ED PROVIDER(S): Madan Devine DO CHIEF COMPLAINT: Rectal bleeding HPI: The patient is an 83-year-old female who presented to the emergency department for an evaluation of rectal bleeding. The patient's been having problems over the course of the last few hours. She has had 3 bowel movements that have been bloody. She has noticed clots. She denies having any abdominal pain. She does take Plavix for recent diagnosis of TIA. The patient has had no hematemesis. She denies having any fever or cough. ROS: See above HPI for pertinent positives & negatives. A total of 10 systems reviewed and were otherwise negative. PAST MEDICAL HISTORY: See Below PAST SURGICAL HISTORY: See Below FAMILY HISTORY: See Below SOCIAL HISTORY: See Below HOME MEDICATIONS: See Below ALLERGIES: See Below VITALS: See Below PHYSICAL EXAMINATION: GENERAL: Patient is awake alert in no acute distress patient is resting comfortably and showing no signs of anxiety EYES: The conjunctivae are clear. The pupils are round and reactive. EARS, NOSE, MOUTH AND THROAT: The nose is without any evidence of any deformity. Mucous membranes are moist. Tongue is midline. NECK: The neck is nontender and supple. RESPIRATORY: Normal respiratory effort is noted there is no evidence of wheezing rhonchi or rales CARDIOVASCULAR: Regular rate and rhythm noted there no murmurs rubs or gallops normal S1 normal S2. GASTROINTESTINAL: The abdomen is soft. Abdomen is nontender. Rectal exam revealed gross blood per rectum. There was no obvious bleeding source. MUSCULOSKELETAL/EXTREMITIES: There is no evidence of gross deformity full range of motion is noted in the hips and shoulders. SKIN: There is no obvious evidence of any rash. NEUROLOGIC: Patient is awake alert and oriented x3 MEDICAL DECISION MAKING: The patient is an 83-year-old male who presented to the emergency department for an evaluation of rectal bleeding. The patient was passing clots. She had no abdominal tenderness on physical exam. On physical exam there is no obvious source for the bleeding. I discussed the patient's laboratory results with her. Ultimately given her findings I do feel that given her age and comorbidities she would be a better candidate for inpatient management and further workup of this bleeding. For this reason I discussed her condition with the on-call [facility] hospitalist. Vital signs are reassuring. Initial hemoglobin was stable. Triage Nursing notes reviewed. Prior medical records reviewed Vital Signs: reviewed and remarkable for no significant abnormalities Differential diagnosis: Diverticulosis, AVM, coagulopathy, colitis, inflammatory bowel disease, malignancy, Pooja-Mccauley tear, esophagitis, peptic ulcer disease, variceal bleed, gastritis, epistaxis, fissure, hemorrhoids, as well as other pathologies. ER treatment provided: See below Diagnostics interpreted by me: ECG: none Cardiac Monitoring: An order was placed for continuous cardiac monitoring. The monitor shows a rate of 92 bpm with sinus rhythm. Laboratory studies: As stated above and show below. Imaging studies: See below. Consultation(s): I discussed this case with Dr. Lozada who is on-call for the [facility]. Past Med/Surg History Problem List (Updated 08/19/24 @ 22:19 by Gallo Lozada MD) Rectal bleed Hematochezia (Acute) Acute lower GI bleeding (Acute) Posterior tibial tendinitis of both lower extremities Trigger finger Non-healing wound of right lower extremity (Acute) History of transcarotid artery revascularization (TCAR) Hypertensive urgency (Acute) Acute hyponatremia (Acute) Anemia (Acute) AMS (altered mental status) (Acute) Expressive aphasia (Acute) Stroke-like symptom Hip bursitis, left Fracture of metatarsal of right foot, closed Diabetic ulcer of toe (Acute) Small bowel obstruction (Acute) History of cataract surgery (Chronic) H/O colonoscopy (Chronic) "diverticulosis 2013" History of esophagogastroduodenoscopy (EGD) (Chronic) History of carpal tunnel surgery (Chronic) S/P cholecystectomy (Chronic) H/O toe surgery (Chronic) Hx of total hysterectomy (Chronic) Hx of total knee arthroplasty (Chronic) HLD (hyperlipidemia) (Chronic) HTN (hypertension) (Chronic) DM2 (diabetes mellitus, type 2) (Chronic) Medical History History of TIA (transient ischemic attack) Encounter for pre-operative examination History of COVID-19 (02/05/24) pt. reports testing pos at her doctor office Hyponatremia Carotid stenosis Hip bursitis, left Hx-TIA (transient ischemic attack) (02/2024) recent admit to [facility], symptoms of speech difficulty have completely improved adn pt. reports no ongoing symptoms AMY (generalized anxiety disorder) Hx SBO History of Holter monitoring currently has, will complete on 04/16 GERD (gastroesophageal reflux disease) Hyperlipidemia Hypertension Anemia Wound infection (02/2024) right leg, inside of calf, due to a fall, currently taking cephalexin, states wound is resolving, will see the wound center at [facility], wound is dry, per pt. DM2 (diabetes mellitus, type 2) Peripheral neuropathy Amputated toe partial, left toe Surgical History History of intestinal surgery due to sbo History of trabeculectomy left eye History of arthroscopy of right shoulder Hx of colonoscopy Hx of esophagogastroduodenoscopy Hx of toe surgery multiple- bunionectomies, amputation of tips of toes History of carpal tunnel release of both wrists Hx of total hysterectomy Hx of total knee arthroplasty S/P cholecystectomy Hx of bilateral cataract extraction Family History Other Hypertension Social History Smoking Status: Never smoker Second Hand Exposure: No; Do You Dip or Chew Tobacco: No; Hx Alcohol Use: No Hx Substance Use: No Preferred Language: Danish Communication Ability: Effective Visual Impairment: Limited Hearing Ability: Normal Coating Machine Feeder Required: No Beliefs That Will Affect Care: None marital status: Current Living Situation: Spouse current occupational status: retired Feels Safe at Home: Yes Diet: regular caffeine: Yes during the past year weight has: remained stable Gender Identity: Female Assistive Devices: Cane, Glasses and Walker Allergies Allergies Allergy/AdvReac Type Severity Reaction Status Date / Time Bleach (Sodium Hypochlorite) AdvReac Severe hives, Verified 06/20/24 10:59 itching, rash morphine AdvReac Mild SEVERE Verified 06/20/24 10:59 NAUSEA AND VOMITING Home Meds Home Medications Medication Instructions Recorded Confirmed acyclovir 400 mg tablet 400 mg PO BID 08/19/24 08/19/24 amlodipine 2.5 mg tablet 2.5 mg PO DAILY 08/19/24 08/19/24 aspirin 81 mg tablet,delayed 81 mg PO DAILY 08/19/24 08/19/24 release atorvastatin 40 mg tablet 40 mg PO DAILY 08/19/24 08/19/24 carvedilol 6.25 mg tablet 6.25 mg PO BID 08/19/24 08/19/24 clopidogrel 75 mg tablet 75 mg PO DAILY 08/19/24 08/19/24 lisinopril 40 mg tablet 40 mg PO DAILY 08/19/24 08/19/24 magnesium oxide 500 mg PO BID 08/19/24 08/19/24 pantoprazole 20 mg tablet,delayed 20 mg PO DAILY 08/19/24 08/19/24 release Results & Data (ED) Vital Signs Vital Signs - 24 hr 08/19/24 18:54 08/19/24 20:35 08/19/24 21:00 Temperature 36.6 C Temperature Source Temporal Artery Scan Pulse Rate 96 H Pulse Rate [Apical] 101 H 96 H Pulse Rhythm Regular Pulse Rhythm [Apical] Regular Regular Pulse Strength Normal Respiratory Rate 19 20 20 Respiratory Effort / Characteristics Non-Labored Spontaneous Non-Labored Spontaneous Non-Labored Spontaneous Respiratory Depth Normal Normal Normal Respiratory Pattern Regular Regular Regular Blood Pressure 155/84 H Blood Pressure [Right Arm] 169/71 H 130/91 Blood Pressure Mean 107 Blood Pressure Mean [Right Arm] 103 104 Blood Pressure Position Sitting Pulse Oximetry 96 97 94 Oxygen Delivery Method Room Air Room Air Room Air Sepsis Recent Fever Within 48 Hours No Sepsis New/Unexplained Change in Mental Status N/A Sepsis Action Taken by Nursing No Action Required Home Medications Current Medication List: was personally reviewed by me Laboratory Data Attestation: I reviewed the patient's lab results. 08/19/24 19:45 08/19/24 19:45 Lab Results 08/19/24 08/19/24 Range/Units 19:45 20:43 WBC 11.69 H (4.8-10.8) K/ul RBC 3.85 L (4.20-5.40) M/uL Hgb 13.6 (12.0-16.0) g/dl Hct 38.5 (37.0-47.0) % MCV 100.0 (80.0-100.0) fL MCH 35.3 H (25.0-34.0) pg MCHC 35.3 (32.0-36.0) g/dL RDW Std Deviation 44.1 (36.4-46.3) fL RDW Coeff of Jose G 12.1 (11.5-14.5) % Plt Count 246 (130-400) K/uL MPV 8.6 L (9.4-12.4) fL PT 10.6 (9.0-12.0) Seconds INR 1.0 (0.9-1.1) APTT 28 (21-31) Seconds PTT Ratio 1.0 Sodium 132 L (136-145) mmol/L Potassium 3.8 (3.5-5.1) mmol/L Chloride 100 (98-107) mmol/L Carbon Dioxide 22 (21-32) mmol/L Anion Gap 10 (3-11) BUN 17 (6-23) mg/dl Creatinine 0.84 (0.6-1.2) mg/dl Est Cr Clr Drug Dosing 49.6 ml/min eGFR 69.34 BUN/Creatinine Ratio 20.2 H (10-20) Glucose 139 H (70-99(Fasting)) mg/dl Calcium 9.9 (8.6-10.3) mg/dl Total Bilirubin 0.7 (0.2-1.0) mg/dl AST 19 (13-39) U/L ALT 17 (7-52) U/L Alkaline Phosphatase 95 (34-104) U/L Troponin I High Sens 7.3 (0-14) pg/ml C-Reactive Protein 0.94 H (0-0.5) mg/dl Total Protein 7.1 (6.0-8.3) gm/dl Albumin 4.6 (3.4-5.0) gm/dl Globulin 2.5 (2.5-4.0) gm/dl Albumin/Globulin Ratio 1.8 (0.9-2) Procalcitonin 0.08 (0-0.5) ng/ml Blood Type O Positive Antibody Screen NEGATIVE Administered Medications Sodium Chloride (Nss) 1,000 mls @ 100 mls/hr IV .Q10H KAREN Stop: 08/21/24 00:02 Last Admin: 08/20/24 00:15 Dose: 100 mls/hr Documented By: GTH Insulin Aspart (Insulin Aspart Per Unit Charge) 0 units SC Q6H KAREN Stop: 09/19/24 00:02 Last Admin: 08/20/24 00:18 Dose: Not Given Documented By: GT Discontinued Medications Ondansetron HCl (Ondansetron Inj 2 Mg/Ml 2 Ml Vial) 4 mg IV NOW STA Stop: 08/19/24 20:51 Last Admin: 08/19/24 22:43 Dose: Not Given Documented By: KLS Discharge Plan Visit Data Chief Complaint: Rectal Bleed Stated Complaint: RECTAL BLEEDING, CLOTTING ED Provider: Madan Devine Discharge Problem: Acute lower GI bleeding, Hematochezia Patient Disposition: Admitted As Inpatient Discharge Instructions Interventions: ED Discharge Assessment Last Done: 08/19/24 22:45
--- OUTSIDE RECORDS SUMMARY | 2024-08-19 21:53 | External Medical Summary | Continuity of Care Document ---
Author Name Unknown Organization [facility] [address] [id number] Care Team Providers Care Visitor Services Technician Name Role Phone Steven Waterman Primary Care Physician [phone] Encounter [facility] [id number] Date(s): 08/13/24 - 08/13/24 [facility] [address] [id number] Encounter Diagnosis AK (actinic keratosis)(Discharge Diagnosis) - 08/13/24 Solar purpura(Discharge Diagnosis) - 08/13/24 Discharge Disposition: Home or Self Care Attending Physician: MD Allison Thomas A Allergies, Adverse Reactions, Alerts Substance Criticality Severity Reaction Reaction Severity Status morphine Vomiting Active sodium hypochlorite topical liquid Unable to assess criticality Mild Active Assessment and Plan Extracted from: Title:Clinical Document Author:MD Keegan, [facility] Fabien Date:08/13/24 OUTPATIENT NOTE Name: ZEINA ACUÑA Patient Number:1 [id number] : 1940 Date of Service: 08/13/2024 _ Zeina Acuña returns for skin examination. She notes multiple purpuric lesions which developed on the extensor aspect of the forearms and to a lesser extent on the distal lower extremities. She does not always notice trauma before their development. She will get occasional blood-filled vesicles overlying the areas of involvement. She notes that her skin is very fragile and is torn easily as well. Examination reveals ecchymotic/purpuric lesions present on the extensor forearms bilaterally and on the dorsum of the hands. There is a single linear lesion present on the lateral aspect of the right lower extremity. Clinical impression is that of solar purpura. Patient notes increased pigmentation of the extensor forearms with relative sparing of the dorsum of the hands. This appears as postinflammatory pigmentation which may be secondary to something she is ingesting such as medication or to repeat purpuric episodes and dermatoheliosis. Review of systems medications allergies as noted on the chart. The patient is in stable health although having problems with her feet and recently had a carotid endarterectomy. Examination reveals pleasant well-nourished weight female type II skin alert and oriented x 3 with normal mood and affect. Examination of the head, neck, back, chest, arms, hands, fingers, abdominal area, legs, feet, and toes reveals the findings as noted above and is otherwise unremarkable. The patient will return in 1 year for reevaluation. Medications acyclovir Start: 03/28/24 1:51:00 PM EDT, [...] not use longer than 2 weeks, Pharmacy: [facility] [id number] Start Date: 12/18/12 Stop Date: 01/29/13 Status: Ordered clopidogrel 75 mg oral tablet Start: 04/04/24 10:10:00 AM EDT, 1 tab, PO, Daily Start Date: 04/04/24 Status: Ordered fluocinonide 0.05% topical solution Start: 06/01/23 10:47:00 AM EDT, See Instructions, Disp# 60 mL, Refills: 3, apply to scalp dermatitis bid as needed, PRN: rash, Pharmacy: [facility]/pharmacy #[id number] Start Date: 06/01/23 Status: Ordered Kerydin 5% [...] oral tablet Start: 05/31/22 10:53:00 AM EDT, 1 tab, PO, Daily Start Date: 05/31/22 Status: Ordered Systane Ultra ophthalmic solution Start: 05/31/22 10:55:00 AM EDT, bid Start Date: 05/31/22 Status: Ordered Mental Status 08/13/24 Barriers to Learning one year None evide nt Mandatory Health Literacy Documentation Yes Health Literacy Communication Barriers N ever Primary Language Indonesian Problem List Condition Confirmation Course Effective Dates [...] unguium Confirmed Active Seborrheic keratosis Confirmed Active Presence of internal carotid stent Confirmed Active Pes planus of both feet Confirmed Active Pes planus of right foot Confirmed Active Skin ulcer of toe of left foot Confirmed Active Diagnosis Diagnosis Type Effective Dates Health Status Cl inical Service Informant AK (actinic keratosis) Discharge Diagnosis 08/13/24 Solar purpura Discharge Diagnosis 08/13/24 Procedures Procedure Date Related Diagnosis Body Site Status History of repair of rotator cuff 12/2021 Completed Knee replacement Complete d Social History Social History Type Response Smoking Status Never smoked cigaret kahlil Sex Female Sex Representation Female (finding) Outpatient Note * MD Keegan, Noah A: PERFORM Event Display: .Outpt Note Authored Date: [id number] OUTPATIENT NOTE Name: ZEINA ACUÑA Patient Number:[id number] : 1940 Date of Service: 08/13/2024 _ Zeina Acuña returns for skin examination. She notes multiple purpuric lesions which developed on the extensor aspect of the forearms and to a lesser extent on the distal lower extremities. She does not always notice trauma before their development. She will get occasional blood-filled vesicles overlying the areas of involvement. She notes that her skin is very fragile and is torn easily as well. Examination reveals ecchymotic/purpuric lesions present on the extensor forearms bilaterally and onthe dorsum of the hands. There is a single linear lesion present on the lateral aspect of the rightlower extremity. Clinical impression is that of solar purpura. Patient notes increased pigmentation of the extensor forearms with relative sparing of the dorsum of the hands. This appears as postinflammatory pigmentation which may be secondary to something she is ingesting such as medication or to repeat purpuric episodes and dermatoheliosis. Review of systems medications allergies as noted on the chart. The patient is in stable health although having problems with her feet and recently had a carotid endarterectomy. Examination reveals pleasant well-nourished weight female type II skin alert and oriented x 3 with normal mood and affect. Examination of the head, neck, back, chest, arms, hands, fingers, abdominal area, legs, feet, and toes reveals the findings as noted above and is otherwise unremarkable. The patient will return in 1 year for reevaluation. 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
--- NOTE | 2024-08-19 22:22 | History & Physical Report ---
Date of Service August 19, 2024 Assessment & Plan (1) Rectal bleed: Plan: 83-year-old female with past medical history significant for type 2 diabetes, diabetic peripheral angiopathy, SIADH, dyslipidemia, hypomagnesia, hypertension, purpura senilis, bilateral carotid stenosis, GERD, nontraumatic complete tear of left rotator cuff, history of partial amputation of toe of left foot, anxiety, history of TIA, history of transcarotid artery revascularization comes because of rectal bleed. Today 6 PM she started to have rectal bleed. She had few small bloody bowel movements and 1 large bloody bowel movement. In the ER also she has couple of episodes of blood per rectum. Has some abdominal discomfort. Feeling nauseous. Micturating okay. Denies chest pain or shortness of breath. Since about a week has some cold symptoms with runny nose. No fevers. No headache. No dizziness. Vision is okay. No earaches. She ambulates with a walker. Currently resting comfortably and hemodynamically stable. On 03/29/2024 she was admitted for transient expressive aphasia and brain MRI was okay but CTA head and neck showed moderate bilateral ICA stenosis 60 to 70% somewhat worse on the left side. She was placed on dual antiplatelets. On 04/16/2024 status post transcarotid artery revascularization with stent placement. Rectal bleed Hemoglobin stable at 13.6 N.p.o., IV fluids H&H every 6 hours Blood consent obtained Hemodynamics are okay Hold aspirin Plavix for now Telemetry GI consult in a.m. for further recommendations History of TIA History of transient expressive aphasia Bilateral ICA stenosis 60 to 70% worse on left side Status post transcarotid artery revascularization with stent placement on the left side Holding aspirin Plavix Continue statin Consult vascular for any recommendations as holding aspirin and Plavix now Diabetes type 2 Currently not on meds Sliding scale Will follow HbA1c levels History of SIADH Sodium 132 Will monitor labs Hyperlipidemia On statin Hypertension On Coreg and lisinopril and amlodipine Will monitor GERD On Protonix DVT prophylaxis SCDs Disposition Telemetry Full code. History of Present Illness Chief Complaint: Rectal bleed Primary Care Provider: Steven Waterman DO 83-year-old female with past medical history significant for type 2 diabetes, diabetic peripheral angiopathy, SIADH, dyslipidemia, hypomagnesia, hypertension, purpura senilis, bilateral carotid stenosis, GERD, nontraumatic complete tear of left rotator cuff, history of partial amputation of toe of left foot, anxiety, history of TIA, history of transcarotid artery revascularization comes because of rectal bleed. Today 6 PM she started to have rectal bleed. She had few small bloody bowel movements and 1 large bloody bowel movement. In the ER also she has couple of episodes of blood per rectum. Has some abdominal discomfort. Feeling nauseous. Micturating okay. Denies chest pain or shortness of breath. Since about a week has some cold symptoms with runny nose. No fevers. No headache. No dizziness. Vision is okay. No earaches. She ambulates with a walker. Currently resting comfortably and hemodynamically stable. On 03/29/2024 she was admitted for transient expressive aphasia and brain MRI was okay but CTA head and neck showed moderate bilateral ICA stenosis 60 to 70% somewhat worse on the left side. She was placed on dual antiplatelets. On 04/16/2024 status post transcarotid artery revascularization with stent placement. Past medical history. As mentioned above Past surgical history. Right shoulder arthroscopy. Button correction. Carpal tunnel surgery. Colonoscopy. Dental surgery. EGD with biopsy. Bowel surgery for bowel obstruction. Knee arthroscopy. Right laser trabeculoplasty. Partial removal of eye fluid. Partial removal of toe. Tonsillectomy. Bilateral cataracts surgery. Removal of foot nerve lesion. Cholecystectomy. Repair of hammertoe. Total abdominal hysterectomy with removal of tubes. Social history. . No smoking. Alcohol 2/day per epic. No drug use. Family history. Mother had arthritis. Rheumatic fever. Stroke. Father had CHF. Brother has diabetes. Allergies Allergy/AdvReac Type Severity Reaction Status Date / Time Bleach (Sodium Hypochlorite) AdvReac Severe hives, Verified 06/20/24 10:59 itching, rash morphine AdvReac Mild SEVERE Verified 06/20/24 10:59 NAUSEA AND VOMITING Home Medications Medication Instructions Recorded Confirmed Type acyclovir 400 mg tablet 400 mg PO BID 08/19/24 08/19/24 History amlodipine 2.5 mg tablet 2.5 mg PO DAILY 08/19/24 08/19/24 History aspirin 81 mg tablet,delayed 81 mg PO DAILY 08/19/24 08/19/24 History release atorvastatin 40 mg tablet 40 mg PO DAILY 08/19/24 08/19/24 History carvedilol 6.25 mg tablet 6.25 mg PO BID 08/19/24 08/19/24 History clopidogrel 75 mg tablet 75 mg PO DAILY 08/19/24 08/19/24 History lisinopril 40 mg tablet 40 mg PO DAILY 08/19/24 08/19/24 History magnesium oxide 500 mg PO BID 08/19/24 08/19/24 History pantoprazole 20 mg tablet,delayed 20 mg PO DAILY 08/19/24 08/19/24 History release Past Med/Surg History Problem List (Updated 08/19/24 @ 22:19 by Gallo Lozada MD) Rectal bleed Hematochezia (Acute) Acute lower GI bleeding (Acute) Posterior tibial tendinitis of both lower extremities Trigger finger Non-healing wound of right lower extremity (Acute) History of transcarotid artery revascularization (TCAR) Hypertensive urgency (Acute) Acute hyponatremia (Acute) Anemia (Acute) AMS (altered mental status) (Acute) Expressive aphasia (Acute) Stroke-like symptom Hip bursitis, left Fracture of metatarsal of right foot, closed Diabetic ulcer of toe (Acute) Small bowel obstruction (Acute) History of cataract surgery (Chronic) H/O colonoscopy (Chronic) "diverticulosis 2013" History of esophagogastroduodenoscopy (EGD) (Chronic) History of carpal tunnel surgery (Chronic) S/P cholecystectomy (Chronic) H/O toe surgery (Chronic) Hx of total hysterectomy (Chronic) Hx of total knee arthroplasty (Chronic) HLD (hyperlipidemia) (Chronic) HTN (hypertension) (Chronic) DM2 (diabetes mellitus, type 2) (Chronic) Medical History History of TIA (transient ischemic attack) Encounter for pre-operative examination History of COVID-19 (02/05/24) pt. reports testing pos at her doctor office Hyponatremia Carotid stenosis Hip bursitis, left Hx-TIA (transient ischemic attack) (02/2024) recent admit to [facility], symptoms of speech difficulty have completely improved adn pt. reports no ongoing symptoms AMY (generalized anxiety disorder) Hx SBO History of Holter monitoring currently has, will complete on 04/16 GERD (gastroesophageal reflux disease) Hyperlipidemia Hypertension Anemia Wound infection (02/2024) right leg, inside of calf, due to a fall, currently taking cephalexin, states wound is resolving, will see the wound center at [facility], wound is dry, per pt. DM2 (diabetes mellitus, type 2) Peripheral neuropathy Amputated toe partial, left toe Surgical History History of intestinal surgery due to sbo History of trabeculectomy left eye History of arthroscopy of right shoulder Hx of colonoscopy Hx of esophagogastroduodenoscopy Hx of toe surgery multiple- bunionectomies, amputation of tips of toes History of carpal tunnel release of both wrists Hx of total hysterectomy Hx of total knee arthroplasty S/P cholecystectomy Hx of bilateral cataract extraction Family History Other Hypertension Social History Smoking Status: Never smoker Second Hand Exposure: No; Do You Dip or Chew Tobacco: No; Tobacco Cessation Education Requested by Patient: No Hx Alcohol Use: Yes Alcohol type: wine Alcohol type Comment: daily w/dinner Alcohol Intake Frequency: 4 or More x per/Week Hx Substance Use: No Preferred Language: Serbian Communication Ability: Effective Visual Impairment: Limited Hearing Ability: Normal 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 Beliefs That Will Affect Care: [employer] marital status: Current Living Situation: Spouse Current Living Situation Comment: lives at home with current occupational status: retired Other Information That Helps Us Care for You: No Feels Safe at Home: Yes Safety Concerns: Feels Safe At This Time Diet: regular caffeine: Yes during the past year weight has: remained stable Gender Identity: Female Assistive Devices: Glasses and Other Assistive Devices Comment: rollator with patient Review of Systems Review of Systems: All systems reviewed & are unremarkable except as noted in HPI & below Physical Exam Physical Exam: General- Not in distress Head- atraumatic Eyes- PERRL. ENT- oropharynx clear Neck- supple, no JVD. Lungs- clear to auscultation no wheezing or crackles Heart- regular rate and rhythm; no murmur, no gallop. Abdomen- normal bowel sounds, soft, nontender, no distension Extremities- no pretibial edema, no erythema seen Neuro- alert, oriented PERRL, no facial palsy; no dysarthria; moves extremities Results & Data Results & Data Vital Signs (Past 12 Hours) Vital Signs Temp Pulse Pulse Resp BP BP Pulse Ox 08/19/24 20:35 101 H 20 169/71 H 97 08/19/24 18:54 36.6 C 96 H 19 155/84 H 96 O2 Del Method 08/19/24 20:35 Room Air 08/19/24 18:54 Room Air Diagnostic Findings Laboratory Results WBC 11.69 K/ul (4.8-10.8) H 08/19/24 19:45 RBC 3.85 M/uL (4.20-5.40) L 08/19/24 19:45 Hgb 13.6 g/dl (12.0-16.0) 08/19/24 19:45 Hct 38.5 % (37.0-47.0) 08/19/24 19:45 MCV 100.0 fL (80.0-100.0) 08/19/24 19:45 MCH 35.3 pg (25.0-34.0) H 08/19/24 19:45 MCHC 35.3 g/dL (32.0-36.0) 08/19/24 19:45 RDW Std Deviation 44.1 fL (36.4-46.3) 08/19/24 19:45 RDW Coeff of Jose G 12.1 % (11.5-14.5) 08/19/24 19:45 Plt Count 246 K/uL (130-400) 08/19/24 19:45 MPV 8.6 fL (9.4-12.4) L 08/19/24 19:45 PT 10.6 Seconds (9.0-12.0) 08/19/24 19:45 INR 1.0 (0.9-1.1) 08/19/24 19:45 APTT 28 Seconds (21-31) 08/19/24 19:45 PTT Ratio 1.0 08/19/24 19:45 Sodium 132 mmol/L (136-145) L 08/19/24 19:45 Potassium 3.8 mmol/L (3.5-5.1) 08/19/24 19:45 Chloride 100 mmol/L (98-107) 08/19/24 19:45 Carbon Dioxide 22 mmol/L (21-32) 08/19/24 19:45 Anion Gap 10 (3-11) 08/19/24 19:45 BUN 17 mg/dl (6-23) 08/19/24 19:45 Creatinine 0.84 mg/dl (0.6-1.2) 08/19/24 19:45 Est Cr Clr Drug Dosing 49.6 ml/min 08/19/24 19:45 eGFR 69.34 08/19/24 19:45 BUN/Creatinine Ratio 20.2 (10-20) H 08/19/24 19:45 Glucose 139 mg/dl (70-99(Fasting)) H 08/19/24 19:45 Calcium 9.9 mg/dl (8.6-10.3) 08/19/24 19:45 Total Bilirubin 0.7 mg/dl (0.2-1.0) 08/19/24 19:45 AST 19 U/L (13-39) 08/19/24 19:45 ALT 17 U/L (7-52) 08/19/24 19:45 Alkaline Phosphatase 95 U/L (34-104) 08/19/24 19:45 Troponin I High Sens 7.3 pg/ml (0-14) 08/19/24 19:45 Total Protein 7.1 gm/dl (6.0-8.3) 08/19/24 19:45 Albumin 4.6 gm/dl (3.4-5.0) 08/19/24 19:45 Globulin 2.5 gm/dl (2.5-4.0) 08/19/24 19:45 Albumin/Globulin Ratio 1.8 (0.9-2) 08/19/24 19:45 Procalcitonin 0.08 ng/ml (0-0.5) 08/19/24 19:45 Blood Type O Positive 08/19/24 20:43 Antibody Screen NEGATIVE 08/19/24 20:43 Code Status & VTE Plan VTE Prophylaxis Plan VTE Prophylaxis will be ordered: Yes
[2024-08-19] MEDS: ONDANSETRON INJ 2 MG/ML 2 ML VIAL IV STA (22:43)
[2024-08-19 22:44] LABS: C Reactive Protein 0.94 mg/dl (0-0.5)
[2024-08-20] MEDS ORDERED: ACETAMINOPHEN 325 MG TAB PO PRN (00:03)
[2024-08-20] MEDS ORDERED: NITROGLYCERIN SL 0.4 MG/TAB TAB SL PRN (00:03)
[2024-08-20] MEDS ORDERED: CARBOHYDRATES FOR HYPOGLYCEMIA PO PRN (00:03)
[2024-08-20] MEDS ORDERED: GLUCAGON FOR INJ 1 MG VIAL SQ PRN (00:03)
[2024-08-20] MEDS ORDERED: DEXTROSE 50% 50 ML SYRINGE IV PRN (00:03)
[2024-08-20] MEDS ORDERED: GLUCOSE 40% GEL 15 GM TUBE PO PRN (00:03)
[2024-08-20] MEDS ORDERED: GLUCOSE 10 TAB/TUBE PO PRN (00:03)
[2024-08-20] MEDS ORDERED: ONDANSETRON INJ 2 MG/ML 2 ML VIAL IV PRN (00:03)
[2024-08-20] MEDS: SODIUM CHLORIDE 0.9% 1,000 ML IV SCH (00:15)
[2024-08-20] MEDS: INSULIN ASPART PER UNIT CHARGE SC SCH (00:18)
--- NOTE | 2024-08-20 06:59 | Gastrointestinal Consultation ---
Date of Consultation August 20, 2024 Assessment & Plan (1) Rectal bleed: 83 year old female w/ history of T2DM, diabetic peripheral angiopathy, SIADH, dyslipidemia, HTN, purpura senilis, bilateral carotid stenosis, GERD, partial amputation of toe of left foot, anxiety, TIA, transcarotid artery revascul arization anticoagulated on ASA/Plavix admitted through the ED w/ rectal bleeding - 2013 colonoscopy w/ sigmoid colon diverticulosis otherwise negative. DDX discussed: diverticular bleed vs ischemic colitis vs infectious colitis vs other - Hold ASA/Plavix - Trend H&H - Monitor and document GI output - Transfuse PRN per primary service - Stool studies - Arrange CTAP - If above negative, consider colonoscopy this admission as ASA and Plavix will need to be restarted I spent a total of 60 minutes on the date of service in review of patient's record, and previously obtained information in person and appropriate medical visit, discussion and education of plan, with patient and/or caregiver, placing orders for tests/referral/procedures as medically necessary and documentation of pertinent clinical information in patient's medical records for their visit today. Supervising Physician Co-Signing Physician Notes Recent onset of abdominal pain associated with cramps and then bloody diarrhea. Elevated white count. No acidosis. CT shows colitis of the right colon. The presentation is that of colonic ischemia. Typically ischemic colitis is in the watershed area between the SMA and ERICK distributions. However this is solidly within the SMA territory. Yes may also show significant stenosis on CT scan. Vascular consult is recommended. She does not appear to have any acute got ischemia at present. Would recommend just liquid diets until assessed by vascular surgery Dr. Sawyer History of Present Illness Reason for Consultation: rectal bleeding Attending Physician: Graciela Ledezma MD History of Present Illness 83 year old female w/ history of T2DM, diabetic peripheral angiopathy, SIADH, dyslipidemia, HTN, purpura senilis, bilateral carotid stenosis, GERD, partial amputation of toe of left foot, anxiety, TIA, transcarotid artery revascularization anticoagulated on ASA Plavix admitted through the ED w/ rectal bleeding - GI was asked to evaluate. Pt was seen and evaluated, chart reviewed. Family at bedside. Hospitalist at bedside. Notes that she has been doctoring with outside systems for chronic loose stools. Endorses may have 5-6 loose watery stools daily and often times relies on PRN Imodium. Yesterday around 6pm she noted BRB in stools. This was large volume w/ associated blood clots. Denies prior black stools. Has abd cramping prior to BM but denies abd pain. No nausea/vomiting. She has had weight loss and endorses decreased appetite. Chronic GERD - maintained on Pantoprazole. No dysphagia. No fever, chills, CP, SOB. S/P CCY years ago. Has tried Questran for her suspected bile-salt diarrhea in the past which caused constipation. Colonoscopy 2013: Diverticulosis in the sigmoid colon. - Otherwise normal to the terminal ileum, with retroflexed views of the ascending colon and rectum. EGD 2008: Normal examined duodenum. - Normal stomach. This was biopsied. - Small hiatus hernia. - Schatzki ring (acquired). Dilated to 20 mm and biopsied. Allergies Allergy/AdvReac Type Severity Reaction Status Date / Time Bleach (Sodium Hypochlorite) AdvReac Severe hives, Verified 06/20/24 10:59 itching, rash morphine AdvReac Mild SEVERE Verified 06/20/24 10:59 NAUSEA AND VOMITING Home Medications Medication Instructions Recorded Confirmed Type acyclovir 400 mg tablet 400 mg PO BID 08/19/24 08/19/24 History amlodipine 2.5 mg tablet 2.5 mg PO DAILY 08/19/24 08/19/24 History aspirin 81 mg tablet,delayed 81 mg PO DAILY 08/19/24 08/19/24 History release atorvastatin 40 mg tablet 40 mg PO DAILY 08/19/24 08/19/24 History carvedilol 6.25 mg tablet 6.25 mg PO BID 08/19/24 08/19/24 History clopidogrel 75 mg tablet 75 mg PO DAILY 08/19/24 08/19/24 History lisinopril 40 mg tablet 40 mg PO DAILY 08/19/24 08/19/24 History magnesium oxide 500 mg PO BID 08/19/24 08/19/24 History pantoprazole 20 mg tablet,delayed 20 mg PO DAILY 08/19/24 08/19/24 History release Patient History Medical History History of TIA (transient ischemic attack) Encounter for pre-operative examination History of COVID-19 (02/05/24) pt. reports testing pos at her doctor office Hyponatremia Carotid stenosis Hip bursitis, left Hx-TIA (transient ischemic attack) (02/2024) recent admit to [facility], symptoms of speech difficulty have completely improved adn pt. reports no ongoing symptoms AMY (generalized anxiety disorder) Hx SBO History of Holter monitoring currently has, will complete on 04/16 GERD (gastroesophageal reflux disease) Hyperlipidemia Hypertension Anemia Wound infection (02/2024) right leg, inside of calf, due to a fall, currently taking cephalexin, states wound is resolving, will see the wound center at [facility], wound is dry, per pt. DM2 (diabetes mellitus, type 2) Peripheral neuropathy Amputated toe partial, left toe Surgical History History of intestinal surgery due to sbo History of trabeculectomy left eye History of arthroscopy of right shoulder Hx of colonoscopy Hx of esophagogastroduodenoscopy Hx of toe surgery multiple- bunionectomies, amputation of tips of toes History of carpal tunnel release of both wrists Hx of total hysterectomy Hx of total knee arthroplasty S/P cholecystectomy Hx of bilateral cataract extraction Family History Other Hypertension Social History Smoking Status: Never smoker Second Hand Exposure: No; Do You Dip or Chew Tobacco: No; Tobacco Cessation Education Requested by Patient: No Hx Alcohol Use: Yes Alcohol type: wine Alcohol type Comment: daily w/dinner Alcohol Intake Frequency: 4 or More x per/Week Hx Substance Use: No Preferred Language: Hebrew Communication Ability: Effective Visual Impairment: Limited Hearing Ability: Normal 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 Physical Exam Constitutional: WD/WN, vitals as above Respiratory: normal respiratory effort, lungs clear to auscultation Cardiovascular: Rate/Rhythm: regular rate and regular rhythm Gastrointestinal (Abdomen): normal bowel sounds, soft, nontender, no hepatosplenomegaly Skin: no rashes, warm and dry Results & Data Vital Signs (Past 12 Hours) Vital Signs Temp Pulse Pulse Pulse Resp BP BP 08/20/24 03:32 98.1 F 78 19 174/64 H 08/20/24 00:16 97.9 F 97 H 18 129/85 08/20/24 00:08 107 H 08/19/24 22:30 92 H 18 130/80 08/19/24 21:00 96 H 20 130/91 08/19/24 20:35 101 H 20 169/71 H Pulse Ox O2 Del Method 08/20/24 03:32 96 Room Air 08/20/24 00:16 90 Room Air 08/20/24 00:08 08/19/24 22:30 95 Room Air 08/19/24 21:00 94 Room Air 08/19/24 20:35 97 Room Air Laboratory Results 08/20/24 08/20/24 08/20/24 Range/Units 06:33 06:09 00:12 WBC 9.64 (4.8-10.8) K/ul RBC 2.96 L (4.20-5.40) M/uL Hgb 10.7 L D (12.0-16.0) g/dl Hct 30.0 L (37.0-47.0) % MCV 101.4 H (80.0-100.0) fL MCH 36.1 H (25.0-34.0) pg MCHC 35.7 (32.0-36.0) g/dL RDW Std Deviation 45.1 (36.4-46.3) fL RDW Coeff of Jose G 12.1 (11.5-14.5) % Plt Count 215 (130-400) K/uL MPV 8.9 L (9.4-12.4) fL Immature Gran % (Auto) 0.4 % Neut % (Auto) 78.0 % Lymph % (Auto) 9.5 % Faulkner % (Auto) 11.2 % Eos % (Auto) 0.7 % Baso % (Auto) 0.2 % Neut # (Auto) 7.51 H (1.40-6.50) K/uL Lymph # (Auto) 0.92 L (1.20-3.40) K/uL Faulkner # (Auto) 1.08 H (0.11-0.59) K/uL Eos # (Auto) 0.07 (0.00-0.50) K/uL Baso # (Auto) 0.02 (0.00-0.20) K/uL Immature Gran # (Auto) 0.04 (0.01-0.20) K/uL PT (9.0-12.0) Seconds INR (0.9-1.1) APTT (21-31) Seconds PTT Ratio Sodium 134 L (136-145) mmol/L Potassium 4.0 (3.5-5.1) mmol/L Chloride 102 (98-107) mmol/L Carbon Dioxide 27 (21-32) mmol/L Anion Gap 5 (3-11) BUN 14 (6-23) mg/dl Creatinine 0.83 (0.6-1.2) mg/dl Est Cr Clr Drug Dosing 49.0 ml/min eGFR 70.34 BUN/Creatinine Ratio 16.9 (10-20) Glucose 144 H (70-99(Fasting)) mg/dl POC Glucose 140 H 156 H (70-99) mg/dl Estimat Average Glucose 177 mg/dl Hemoglobin A1c 7.8 H (4.5-5.6) % Calcium 8.8 (8.6-10.3) mg/dl Magnesium 1.1 L (1.7-2.4) mg/dl Total Bilirubin (0.2-1.0) mg/dl AST (13-39) U/L ALT (7-52) U/L Alkaline Phosphatase (34-104) U/L Troponin I High Sens (0-14) pg/ml C-Reactive Protein (0-0.5) mg/dl Total Protein (6.0-8.3) gm/dl Albumin (3.4-5.0) gm/dl Globulin (2.5-4.0) gm/dl Albumin/Globulin Ratio (0.9-2) Procalcitonin (0-0.5) ng/ml Blood Type Antibody Screen 01/20/25 01/20/25 Range/Units 20:43 19:45 WBC 11.69 H (4.8-10.8) K/ul RBC 3.85 L (4.20-5.40) M/uL Hgb 13.6 (12.0-16.0) g/dl Hct 38.5 (37.0-47.0) % MCV 100.0 (80.0-100.0) fL MCH 35.3 H (25.0-34.0) pg MCHC 35.3 (32.0-36.0) g/dL RDW Std Deviation 44.1 (36.4-46.3) fL RDW Coeff of Jose G 12.1 (11.5-14.5) % Plt Count 246 (130-400) K/uL MPV 8.6 L (9.4-12.4) fL Immature Gran % (Auto) % Neut % (Auto) % Lymph % (Auto) % Faulkner % (Auto) % Eos % (Auto) % Baso % (Auto) % Neut # (Auto) (1.40-6.50) K/uL Lymph # (Auto) (1.20-3.40) K/uL Faulkner # (Auto) (0.11-0.59) K/uL Eos # (Auto) (0.00-0.50) K/uL Baso # (Auto) (0.00-0.20) K/uL Immature Gran # (Auto) (0.01-0.20) K/uL PT 10.6 (9.0-12.0) Seconds INR 1.0 (0.9-1.1) APTT 28 (21-31) Seconds PTT Ratio 1.0 Sodium 132 L (136-145) mmol/L Potassium 3.8 (3.5-5.1) mmol/L Chloride 100 (98-107) mmol/L Carbon Dioxide 22 (21-32) mmol/L Anion Gap 10 (3-11) BUN 17 (6-23) mg/dl Creatinine 0.84 (0.6-1.2) mg/dl Est Cr Clr Drug Dosing 49.6 ml/min eGFR 69.34 BUN/Creatinine Ratio 20.2 H (10-20) Glucose 139 H (70-99(Fasting)) mg/dl POC Glucose (70-99) mg/dl Estimat Average Glucose mg/dl Hemoglobin A1c (4.5-5.6) % Calcium 9.9 (8.6-10.3) mg/dl Magnesium (1.7-2.4) mg/dl Total Bilirubin 0.7 (0.2-1.0) mg/dl AST 19 (13-39) U/L ALT 17 (7-52) U/L Alkaline Phosphatase 95 (34-104) U/L Troponin I High Sens 7.3 (0-14) pg/ml C-Reactive Protein 0.94 H (0-0.5) mg/dl Total Protein 7.1 (6.0-8.3) gm/dl Albumin 4.6 (3.4-5.0) gm/dl Globulin 2.5 (2.5-4.0) gm/dl Albumin/Globulin Ratio 1.8 (0.9-2) Procalcitonin 0.08 (0-0.5) ng/ml Blood Type O Positive Antibody Screen NEGATIVE PG Care Time/CCT Total # of Minutes Spent Total Time Spent with Patient: Total time spent is greater than 50% in coordination of care (as documented) at patient's floor/unit and/or counseling patient: Coding Level of Care Code 83300 INT INP/OBS CARE MIN Diagnoses Rectal bleed K62.5
[2024-08-20 07:18] LABS: Hemoglobin 10.7 g/dl (12.0-16.0); Mean Corpuscular Hemoglobin 36.1 pg (25.0-34.0); Mean Corpuscular Hgb Conc 35.7 g/dL (32.0-36.0); Mean Corpuscular Volume 101.4 fL (80.0-100.0); Mean Platelet Volume 8.9 fL (9.4-12.4); Platelet Count 215 K/uL (130-400); RDW Coefficient of Variation 12.1 % (11.5-14.5); RDW Standard Deviation 45.1 fL (36.4-46.3); Red Blood Count 2.96 M/uL (4.20-5.40); White Blood Count 9.64 K/ul (4.8-10.8)
[2024-08-20 07:25] LABS: Basophils # (auto) 0.02 K/uL (0.00-0.20); Basophils % (auto) 0.2 %; Eosinophils # (auto) 0.07 K/uL (0.00-0.50); Eosinophils % (auto) 0.7 %; Immature Granulocytes # (auto) 0.04 K/uL (0.01-0.20); Immature Granulocytes % (auto) 0.4 %; Lymphocytes # (auto) 0.92 K/uL (1.20-3.40); Lymphocytes % (auto) 9.5 %; Monocytes # (auto) 1.08 K/uL (0.11-0.59); Monocytes % (auto) 11.2 %; Neutrophils # (auto) 7.51 K/uL (1.40-6.50)
[2024-08-20 07:35] LABS: BUN Creatinine Ratio 16.9 (10-20); Calcium 8.8 mg/dl (8.6-10.3); Magnesium 1.1 mg/dl (1.7-2.4)
[2024-08-20 08:12] LABS: Estimated Average Glucose 177 mg/dl; Hemoglobin A1C 7.8 % (4.5-5.6)
[2024-08-20] MEDS: MAGNESIUM OXIDE 400 MG TAB PO SCH (09:13)
[2024-08-20] MEDS: carvediloL 6.25 MG TAB PO SCH (09:13)
[2024-08-20] MEDS: ATORVASTATIN 40 MG TAB PO SCH (09:14)
[2024-08-20] MEDS: lisinopril 40 MG TAB PO SCH (09:14)
[2024-08-20] MEDS: PANTOprazole 40 MG TAB PO SCH (09:14)
[2024-08-20] MEDS: ACYCLOVIR 400 MG TAB PO SCH (09:15)
--- NOTE | 2024-08-20 09:50 | Hospitalist Progress Note ---
Date of Service August 20, 2024 Assessment & Plan (1) Rectal bleed: Plan: 83-year-old female with past medical history significant for type 2 diabetes, diabetic peripheral angiopathy, SIADH, dyslipidemia, hypomagnesia, hypertension, purpura senilis, bilateral carotid stenosis, GERD, nontraumatic complete tear of left rotator cuff, history of partial amputation of toe of left foot, anxiety, history of TIA, history of transcarotid artery revascularization who presented to the hospital for rectal bleed. Rectal bleed Acute blood loss anemia Hb was 13.6 yesterday and 10.7 this AM Part of it could be dilutional as all cell lines dropped Continue to monitor Hb. Transfuse prn to keep Hb>7 or with symptomatic anemia Keep NPO Discussed with GI FRANCHISE CONSULTANT who recommends getting CT Ab/Pelvis with po and iv contrast Continue NPO for now till full GI eval Follow up CT abd/Pelvis, stool studies Continue to hold aspirin and plavix for now History of TIA History of transient expressive aphasia Bilateral ICA stenosis 60 to 70% worse on left side Status post transcarotid artery revascularization with stent placement on the left side Discussed with Vascular PA. OK to interrupt DAPT for now since procedure is over 30 days ago. Can resume once appropriate Vascular consult canceled Diabetes type 2 Currently not on meds HbA1c is 7.8 ISS Hypomagnesemia Hyponatremia History of SIADH Sodium 134 today Mg is 1.1 today. Repletion with IV ordered Will monitor labs Hyperlipidemia On statin Hypertension On Coreg and lisinopril and amlodipine Will monitor GERD On Protonix DVT prophylaxis SCDs Full code. I spent a total of 55 minutes coordinating, documenting and providing care for this patient excluding time spent in performance of separately billed services Admission and Anticipated Discharge Date Admission Date: August 19, 2024 Subjective Patient seen and examined Reports painless rectal bleed (BRBPR) that started yesterday evening. Associated with mild abd discomfort and nausea which have resolved Reports chronic diarrhea Denied any other complaints on ROS Physical Exam Constitutional: + well hydrated; no acute distress Eyes: PERRL, conjunctivae normal, anicteric sclerae ENMT: external ear and nose normal, oropharynx normal Respiratory: normal respiratory effort, lungs clear to auscultation Cardiovascular: Rate/Rhythm: regular rate and regular rhythm Gastrointestinal (Abdomen): normal bowel sounds, soft, nontender, no hepatosplenomegaly Musculoskeletal: No pedal edema Neurologic: PERRL, EOMI, accommodation nl, no face palsy, no dysarthria Psychiatric: A+Ox3, euthymic affect Results & Data Results & Data Vital Signs (Past 12 Hours) Vital Signs Temp Pulse Pulse Pulse Resp BP BP 08/20/24 07:47 37.1 C 74 18 124/53 L 08/20/24 03:32 36.7 C 78 19 174/64 H 08/20/24 00:16 36.6 C 97 H 18 129/85 08/20/24 00:08 107 H 08/19/24 22:30 92 H 18 130/80 Pulse Ox O2 Del Method 08/20/24 07:47 97 Room Air 08/20/24 03:32 96 Room Air 08/20/24 00:16 90 Room Air 08/20/24 00:08 08/19/24 22:30 95 Room Air Laboratory Results Abnormal lab results 08/19/24 08/20/24 08/20/24 Range/Units 19:45 00:12 06:09 WBC 11.69 H (4.8-10.8) K/ul RBC 3.85 L (4.20-5.40) M/uL Hgb (12.0-16.0) g/dl Hct (37.0-47.0) % MCV (80.0-100.0) fL MCH 35.3 H (25.0-34.0) pg MPV 8.6 L (9.4-12.4) fL Neut # (Auto) (1.40-6.50) K/uL Lymph # (Auto) (1.20-3.40) K/uL Anderson # (Auto) (0.11-0.59) K/uL Sodium 132 L (136-145) mmol/L BUN/Creatinine Ratio 20.2 H (10-20) Glucose 139 H (70-99(Fasting)) mg/dl POC Glucose 156 H 140 H (70-99) mg/dl Hemoglobin A1c (4.5-5.6) % Magnesium (1.7-2.4) mg/dl C-Reactive Protein 0.94 H (0-0.5) mg/dl 08/20/24 Range/Units 06:33 WBC (4.8-10.8) K/ul RBC 2.96 L (4.20-5.40) M/uL Hgb 10.7 L D (12.0-16.0) g/dl Hct 30.0 L (37.0-47.0) % MCV 101.4 H (80.0-100.0) fL MCH 36.1 H (25.0-34.0) pg MPV 8.9 L (9.4-12.4) fL Neut # (Auto) 7.51 H (1.40-6.50) K/uL Lymph # (Auto) 0.92 L (1.20-3.40) K/uL Anderson # (Auto) 1.08 H (0.11-0.59) K/uL Sodium 134 L (136-145) mmol/L BUN/Creatinine Ratio (10-20) Glucose 144 H (70-99(Fasting)) mg/dl POC Glucose (70-99) mg/dl Hemoglobin A1c 7.8 H (4.5-5.6) % Magnesium 1.1 L (1.7-2.4) mg/dl C-Reactive Protein (0-0.5) mg/dl
[2024-08-20] MEDS: MAGNESIUM SULFATE / D5W 1 GM/100 ML BAG IV SCH (10:36)
[2024-08-20 11:02] LABS: Hematocrit (blood only) 29.1 % (37.0-47.0); Hemoglobin 10.3 g/dl (12.0-16.0)
[2024-08-20] MEDS: OPTIRAY 320 100ml IV ONE (11:47)
--- NOTE | 2024-08-20 12:47 | CT Scan Report ---
CT OF THE ABDOMEN AND PELVIS WITH CONTRAST CLINICAL HISTORY: Rectal bleeding. COMPARISON STUDY: CT of the abdomen and pelvis March 08, 2016. TECHNIQUE: Following IV administration of 93 mL of Optiray, axial images of the abdomen and pelvis we re obtained from the lung bases to the proximal femurs. Images were reviewed in the axial, sagittal, and coronal planes. IV contrast was administered without complication. Automated exposure control wa s utilized for the study. A dose lowering technique was utilized adhering to the principles of ALARA . Oral contrast was administered. CT DOSE: 1431.78 mGy.cm FINDINGS: There is moderate elevation of the right hemidiaphragm. No pneumatosis, free air or portal venous gas is present. Mild biliary ductal dilatation is likely related to cholecystectomy. There are no hepatic lesions. The spleen, adrenal glands, kidneys and pancreas are unremarkable. There is no e vidence for a bowel obstruction. The appendix is normal. There is moderate to severe circumferential wall thickening of the ascending colon with mild pericolonic stranding and a small amount of fluid. N o fluid collection to status post abscess is present. There is no extraluminal gas. There is sigmoid diverticulosis without evidence for acute diverticulitis. Trace fluid within the pelvis is present. T here are no pelvic fluid collections. There is extensive calcified atherosclerotic plaque within the abdominal aorta and branch vessels. 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 There is mild stenosis at the origin of the celiac axis. The inferior mesenteric artery is p atent but contains extensive calcified plaque. There is no lymphadenopathy. IMPRESSION: 1. Wall thickening of the ascending colon with adjacent stranding and a small amount of fluid. The fi ndings represent a moderate to severe colitis involving the right colon. Although nonspecific, an inf ectious or ischemic etiology is favored. No extraluminal gas. No abscess. 2. Extensive atherosclerotic plaque within the abdominal aorta and branch vessels. 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 3. No bowel obstruction. ACT 112: Negative or not required by law. Electronically signed by: Kemal Zamarripa M.D. 08/20/2024 12:46 PM
[2024-08-20 13:17] LABS: Adenovirus F 40/41 PCR Not Detected (NotDetected); Astrovirus PCR Not Detected (NotDetected); Campylobacter PCR Not Detected (NotDetected); Cryptosporidium PCR Not Detected (NotDetected); Cyclospora cayetanensis PCR Not Detected (NotDetected); Entamoeba histolytica PCR Not Detected (NotDetected); Enteroaggregative E.coli(EAEC) Not Detected (NotDetected); Enteropathogenic E.coli (EPEC) Not Detected (NotDetected); Enterotoxigenic E.coli (ETEC) Not Detected (NotDetected); Giardia lamblia PCR Not Detected (NotDetected); Norovirus GI/GII PCR Not Detected (NotDetected); Plesiomonas shigelloides PCR Not Detected (NotDetected); Rotavirus A PCR Not Detected (NotDetected); Salmonella PCR Not Detected (NotDetected); Sapovirus PCR Not Detected (NotDetected); Shiga-like Toxin E.coli (STEC) Not Detected (NotDetected); Shigella/Enteroinvasive E.coli Not Detected (NotDetected); Vibrio cholerae PCR Not Detected (NotDetected); Vibrio species PCR Not Detected (NotDetected); Yersinia enterocolitica PCR Not Detected (NotDetected)
[2024-08-20 17:40] LABS: Hematocrit (blood only) 32.5 % (37.0-47.0); Hemoglobin 11.5 g/dl (12.0-16.0)
[2024-08-21 08:38] LABS: Hematocrit (blood only) 30.9 % (37.0-47.0); Hemoglobin 10.8 g/dl (12.0-16.0); Mean Corpuscular Hemoglobin 35.2 pg (25.0-34.0); Mean Corpuscular Volume 100.7 fL (80.0-100.0); Mean Platelet Volume 8.5 fL (9.4-12.4); Platelet Count 193 K/uL (130-400); RDW Coefficient of Variation 12.4 % (11.5-14.5); RDW Standard Deviation 45.7 fL (36.4-46.3); Red Blood Count 3.07 M/uL (4.20-5.40); White Blood Count 7.38 K/ul (4.8-10.8)
[2024-08-21 09:00] LABS: BUN Creatinine Ratio 8.8 (10-20); Calcium 8.8 mg/dl (8.6-10.3); Creatinine Clr Calc Pharmacy 59.8 ml/min; Magnesium 1.4 mg/dl (1.7-2.4); Phosphorus 3.3 mg/dl (2.5-4.9); Potassium 3.4 mmol/L (3.5-5.1)
--- NOTE | 2024-08-21 10:04 | Gastroenterology Progress Note ---
Date of Service August 21, 2024 Assessment & Plan (1) Rectal bleed: Plan: 83 year old female w/ history of T2DM, diabetic peripheral angiopathy, SIADH, dyslipidemia, HTN, purpura senilis, bilateral carotid stenosis, GERD, partial amputation of toe of left foot, anxiety, TIA, transcarotid artery revascularization anticoagulated on ASA/Plavix admitted through the ED w/ rectal bleeding - 2013 colonoscopy w/ sigmoid colon diverticulosis otherwise negative. 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 Admission and Anticipated Discharge Date Admission Date: August 19, 2024 Supervising Physician Co-Signing Physician Notes Patient seen at the bedside. Sitting up eating a meal. Did not appear in any acute distress. Patient was assessed by vascular surgery. There is no plan for intervention. They have advised the patient if recurrent pain bleeding to return to emergency room as soon as possible. I did review with the patient the risks of potential blood interruption to the intestines. Recommended very close follow-up with vascular surgery. There are no endoscopic interventions or management required. Subjective Feeling improved! Abd pain is resolved. Rectal bleeding resolved. Stools becoming more semi-formed. S/P CCY years ago. Has tried Questran for her suspected bile-salt diarrhea in the past which caused constipation. Negative c.diff study Negative stool PCR CTAP 2024: Wall thickening of the ascending colon with adjacent stranding and a small amount of fluid. The findings represent a moderate to severe colitis involving the right colon. Although nonspecific, an infectious or ischemic etiology is favored. No extraluminal gas. No abscess. Extensive atherosclerotic plaque within the abdominal aorta and branch vessels. 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 No bowel obstruction. Colonoscopy 2013: Diverticulosis in the sigmoid colon. - Otherwise normal to the terminal ileum, with retroflexed views of the ascending colon and rectum. EGD 2008: Normal examined duodenum. - Normal stomach. This was biopsied. - Small hiatus hernia. - Schatzki ring (acquired). Dilated to 20 mm and biopsied. Review of Systems Review of Systems: All other findings negative except as noted in HPI. Physical Exam Constitutional: WD/WN, vitals as above Respiratory: normal respiratory effort Cardiovascular: Rate/Rhythm: regular rate and regular rhythm Gastrointestinal (Abdomen): normal bowel sounds, soft, nontender, no hepatosplenomegaly Skin: no rashes, warm and dry Results & Data Results & Data Vital Signs (Past 12 Hours) Vital Signs Temp Pulse Resp BP Pulse Ox O2 Del Method 08/21/24 03:37 97.7 F 82 18 155/80 H 96 Room Air 08/20/24 22:18 99.1 F 72 16 125/68 95 Room Air Laboratory Results 08/21/24 08/21/24 08/21/24 Range/Units 08:13 06:25 00:44 WBC 7.38 (4.8-10.8) K/ul RBC 3.07 L (4.20-5.40) M/uL Hgb 10.8 L (12.0-16.0) g/dl Hct 30.9 L (37.0-47.0) % MCV 100.7 H (80.0-100.0) fL MCH 35.2 H (25.0-34.0) pg MCHC 35.0 (32.0-36.0) g/dL RDW Std Deviation 45.7 (36.4-46.3) fL RDW Coeff of Jose G 12.4 (11.5-14.5) % Plt Count 193 (130-400) K/uL MPV 8.5 L (9.4-12.4) fL Sodium 134 L (136-145) mmol/L Potassium 3.4 L (3.5-5.1) mmol/L Chloride 103 (98-107) mmol/L Carbon Dioxide 25 (21-32) mmol/L Anion Gap 6 (3-11) BUN 6 (6-23) mg/dl Creatinine 0.68 (0.6-1.2) mg/dl Est Cr Clr Drug Dosing 59.8 ml/min eGFR 86.90 BUN/Creatinine Ratio 8.8 L (10-20) Glucose 196 H (70-99(Fasting)) mg/dl POC Glucose 135 H 133 H (70-99) mg/dl Calcium 8.8 (8.6-10.3) mg/dl Phosphorus 3.3 (2.5-4.9) mg/dl Magnesium 1.4 L (1.7-2.4) mg/dl POC Stool Occult Blood Stl C. cayetanensis PCR (NotDetected) Stool Rotavirus A PCR (NotDetected) Stl Adenov F 40/41 PCR (NotDetected) Stool Astrovirus (PCR) (NotDetected) Stool Campylobacter PCR (NotDetected) Stl C. diff Tox B Gene (Neg) Stool Cryptosporidium PCR (NotDetected) Stl E.coli Shiga Tox PCR (NotDetected) Stl Enterotoxigenic E PCR (NotDetected) Stool EPEC (PCR) (NotDetected) Stool EAEC (PCR) (NotDetected) Stl E. histolytica PCR (NotDetected) Stool Giardia Lamblia PCR (NotDetected) Stool Salmonella PCR (NotDetected) Stool Sapovirus (PCR) (NotDetected) Stl P. shigelloides PCR (NotDetected) Stl Shigella/EIEC PCR (NotDetected) St Y.enterocolitica PCR (NotDetected) Stool Vibrio (PCR) (NotDetected) Stl Vibrio cholerae PCR (NotDetected) Stl Norovirus GI/GII PCR (NotDetected) 08/20/24 08/20/24 08/20/24 Range/Units 17:18 16:19 12:23 WBC (4.8-10.8) K/ul RBC (4.20-5.40) M/uL Hgb 11.5 L (12.0-16.0) g/dl Hct 32.5 L (37.0-47.0) % MCV (80.0-100.0) fL MCH (25.0-34.0) pg MCHC (32.0-36.0) g/dL RDW Std Deviation (36.4-46.3) fL RDW Coeff of Jose G (11.5-14.5) % Plt Count (130-400) K/uL MPV (9.4-12.4) fL Sodium (136-145) mmol/L Potassium (3.5-5.1) mmol/L Chloride (98-107) mmol/L Carbon Dioxide (21-32) mmol/L Anion Gap (3-11) BUN (6-23) mg/dl Creatinine (0.6-1.2) mg/dl Est Cr Clr Drug Dosing ml/min eGFR BUN/Creatinine Ratio (10-20) Glucose (70-99(Fasting)) mg/dl POC Glucose 127 H 152 H (70-99) mg/dl Calcium (8.6-10.3) mg/dl Phosphorus (2.5-4.9) mg/dl Magnesium (1.7-2.4) mg/dl POC Stool Occult Blood Stl C. cayetanensis PCR (NotDetected) Stool Rotavirus A PCR (NotDetected) Stl Adenov F 40/41 PCR (NotDetected) Stool Astrovirus (PCR) (NotDetected) Stool Campylobacter PCR (NotDetected) Stl C. diff Tox B Gene (Neg) Stool Cryptosporidium PCR (NotDetected) Stl E.coli Shiga Tox PCR (NotDetected) Stl Enterotoxigenic E PCR (NotDetected) Stool EPEC (PCR) (NotDetected) Stool EAEC (PCR) (NotDetected) Stl E. histolytica PCR (NotDetected) Stool Giardia Lamblia PCR (NotDetected) Stool Salmonella PCR (NotDetected) Stool Sapovirus (PCR) (NotDetected) Stl P. shigelloides PCR (NotDetected) Stl Shigella/EIEC PCR (NotDetected) St Y.enterocolitica PCR (NotDetected) Stool Vibrio (PCR) (NotDetected) Stl Vibrio cholerae PCR (NotDetected) Stl Norovirus GI/GII PCR (NotDetected) 08/20/24 08/20/24 08/20/24 Range/Units 11:40 11:37 10:34 WBC (4.8-10.8) K/ul RBC (4.20-5.40) M/uL Hgb 10.3 L (12.0-16.0) g/dl Hct 29.1 L (37.0-47.0) % MCV (80.0-100.0) fL MCH (25.0-34.0) pg MCHC (32.0-36.0) g/dL RDW Std Deviation (36.4-46.3) fL RDW Coeff of Jose G (11.5-14.5) % Plt Count (130-400) K/uL MPV (9.4-12.4) fL Sodium (136-145) mmol/L Potassium (3.5-5.1) mmol/L Chloride (98-107) mmol/L Carbon Dioxide (21-32) mmol/L Anion Gap (3-11) BUN (6-23) mg/dl Creatinine (0.6-1.2) mg/dl Est Cr Clr Drug Dosing ml/min eGFR BUN/Creatinine Ratio (10-20) Glucose (70-99(Fasting)) mg/dl POC Glucose (70-99) mg/dl Calcium (8.6-10.3) mg/dl Phosphorus (2.5-4.9) mg/dl Magnesium (1.7-2.4) mg/dl POC Stool Occult Blood Pending Stl C. cayetanensis PCR Not Detected (NotDetected) Stool Rotavirus A PCR Not Detected (NotDetected) Stl Adenov F 40/41 PCR Not Detected (NotDetected) Stool Astrovirus (PCR) Not Detected (NotDetected) Stool Campylobacter PCR Not Detected (NotDetected) Stl C. diff Tox B Gene Negative Cdiff Gene (Neg) Stool Cryptosporidium PCR Not Detected (NotDetected) Stl E.coli Shiga Tox PCR Not Detected (NotDetected) Stl Enterotoxigenic E PCR Not Detected (NotDetected) Stool EPEC (PCR) Not Detected (NotDetected) Stool EAEC (PCR) Not Detected (NotDetected) Stl E. histolytica PCR Not Detected (NotDetected) Stool Giardia Lamblia PCR Not Detected (NotDetected) Stool Salmonella PCR Not Detected (NotDetected) Stool Sapovirus (PCR) Not Detected (NotDetected) Stl P. shigelloides PCR Not Detected (NotDetected) Stl Shigella/EIEC PCR Not Detected (NotDetected) St Y.enterocolitica PCR Not Detected (NotDetected) Stool Vibrio (PCR) Not Detected (NotDetected) Stl Vibrio cholerae PCR Not Detected (NotDetected) Stl Norovirus GI/GII PCR Not Detected (NotDetected) PG Care Time/CCT Total # of Minutes Spent Total Time Spent with Patient: Total time spent is greater than 50% in coordination of care (as documented) at patient's floor/unit and/or counseling patient: Coding Level of Care Code 11514 SUB INP/OBS CARE 2/35MIN Diagnoses Rectal bleed K62.5
--- NOTE | 2024-08-21 10:09 | Hospitalist Progress Note ---
Date of Service August 21, 2024 Assessment & Plan (1) Rectal bleed: Plan: per previous hospitalist notes with addendum: 83-year-old female with past medical history significant for type 2 diabetes, diabetic peripheral angiopathy, SIADH, dyslipidemia, hypomagnesia, hypertension, purpura senilis, bilateral carotid stenosis, GERD, nontraumatic complete tear of left rotator cuff, history of partial amputation of toe of left foot, anxiety, history of TIA, history of transcarotid artery revascularization who presented to the hospital for rectal bleed. Rectal bleed Acute blood loss anemia Colon Ischemia Severe SMA stenosis Hb was 13.6 yesterday and 10.7 this AM Part of it could be dilutional as all cell lines dropped Continue to monitor Hb. Transfuse prn to keep Hb>7 or with symptomatic anemia Keep NPO Discussed with GI CHEMICAL PROCESSING LABORER who recommends getting CT Ab/Pelvis with po and iv contrast Continue NPO for now till full GI eval Follow up CT abd/Pelvis, stool studies CT Abd/pelvis: 1. Wall thickening of the ascending colon with adjacent stranding and a small amount of fluid. The findings represent a moderate to severe colitis involving the right colon. Although nonspecific, an infectious or ischemic etiology is favored. No extraluminal gas. No abscess. 2. Extensive atherosclerotic plaque within the abdominal aorta and branch vessels. 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 3. No bowel obstruction. 08/21 Hematochezia resolved Hg stable ~10 for 2-3 days ok to resume ASA and Plavix per GI consulted/messaged Vascular Surgery service re: severe SMA stenosis with colon ischemia monitor closely advance diet to AHA History of TIA History of transient expressive aphasia Bilateral ICA stenosis 60 to 70% worse on left side Status post transcarotid artery revascularization with stent placement on the left side Discussed with Vascular PA. OK to interrupt DAPT for now since procedure is over 30 days ago. Can resume once appropriate 08/21 can resume ASA and Plavix per GI Diabetes type 2 Currently not on meds HbA1c is 7.8 ISS Hypomagnesemia Hyponatremia History of SIADH Sodium 134 today Mg is 1.1 today. Repletion with IV ordered Will monitor labs 08/21 K 3.4 Mg 1.4 -- will replaced Hyperlipidemia On statin Hypertension On Coreg and lisinopril and amlodipine Will monitor GERD On Protonix DVT prophylaxis SCDs Full code. Admission and Anticipated Discharge Date Admission Date: August 19, 2024 Subjective ff up for colon ischemia with hematochezia, etc seen resting in bed, comfortable in good spirits no BM today reports very mild discomfort BL lower lateral aspect of abdomen no chest pain, dyspnea, palpitations, dizziness no other new symptoms Review of Systems Review of Systems: all noted and negative except for above Physical Exam Physical Exam: General- oriented x 3, not in distress, speaks in sentences with no effort or accessory muscle use Eyes- anicteric Neck- no JVD Lungs- clear breath sounds bilaterally, no rales/wheezes Heart- normal rate, regular rhythm; no murmurs Abdomen- normal bowel sounds, nondistended, soft, nontender Extremities- no pretibial edema, no calf tenderness Neuro- alert, oriented x 3; no gross focal neurologic deficits Skin- warm & dry Results & Data Results & Data Vital Signs (Past 12 Hours) Vital Signs Temp Pulse Resp BP Pulse Ox O2 Del Method 08/21/24 03:37 36.5 C 82 18 155/80 H 96 Room Air 08/20/24 22:18 37.3 C 72 16 125/68 95 Room Air all noted and reviewed including below
[2024-08-21] MEDS: POTASSIUM CHLORIDE CRTAB 20 MEQ TABCR PO STA (12:52)
[2024-08-21] MEDS ORDERED: Nursing to Pharmacy Communication SCH (16:15)
--- NOTE | 2024-08-21 16:50 | Consultation ---
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 ERICK patent. No definite occlusions. Sx completely resolved at this time, denies any significant pain. No sx of post prandial pain, food fear, or signficant uni ntended weight loss to indicate chronic mesenteric ischemia. Discussed with Dr Sawyer at length. Will reeval in office in 6 months along with her scheduled TCAR surveillance. Pt and agreeable to this plan. Would restart her DAPT if felt to be safe from GI and hospitalist standpoint. Hx and CT concerning for ischemic colitis, consider general surgery eval if further sx. Please call if needed. History of Present Illness Reason for Consultation: ischemic colitis Attending Physician: Yahir Larsen MD History of Present Illness 83 yo f with hx of L ICA stenosis s/p L TCAR, anemia, HTN, hyperlipidemia, DMII, admitted with hematochezia, seen in consultation today for mesenteric stenosis. Pt states she was at home and noted mild abd cramping, so went to restroom, where she proceeded to have large bloody BM with clots. She was very concerned, so came to hospital for eval. States she has had no real pain, even while she was having the bleeding, which has now resolved. States had a normal BM today. She does take DAPT for her L TCAR, which was done by Dr Sawyer approx 3 months ago. This was stopped on arrival. hgb as low as 10. No transfusion required. Pt denies any chronic abd pain, post prandial pain, food fear, or unintended weight loss. Denies HARRISON, fever, chest pain, SOB, N/V, rest pain, claudication, other complaints. CTA abd/pelvis demonstrates 2 areas of stenosis in SMA, and a stenosis in celiac artery. ERICK patent. Ascending colon wall thickening consistent with colitis, possibly ischemic. Allergies Allergy/AdvReac Type Severity Reaction Status Date / Time Bleach (Sodium Hypochlorite) AdvReac Severe hives, Verified 06/20/24 10:59 itching, rash morphine AdvReac Mild SEVERE Verified 06/20/24 10:59 NAUSEA AND VOMITING Home Medications Medication Instructions Recorded Confirmed Type acyclovir 400 mg tablet 400 mg PO BID 08/19/24 08/19/24 History amlodipine 2.5 mg tablet 2.5 mg PO DAILY 08/19/24 08/19/24 History aspirin 81 mg tablet,delayed 81 mg PO DAILY 08/19/24 08/19/24 History release atorvastatin 40 mg tablet 40 mg PO DAILY 08/19/24 08/19/24 History carvedilol 6.25 mg tablet 6.25 mg PO BID 08/19/24 08/19/24 History clopidogrel 75 mg tablet 75 mg PO DAILY 08/19/24 08/19/24 History lisinopril 40 mg tablet 40 mg PO DAILY 08/19/24 08/19/24 History magnesium oxide 500 mg PO BID 08/19/24 08/19/24 History pantoprazole 20 mg tablet,delayed 20 mg PO DAILY 08/19/24 08/19/24 History release Patient History Medical History History of TIA (transient ischemic attack) Encounter for pre-operative examination History of COVID-19 (02/05/24) pt. reports testing pos at her doctor office Hyponatremia Carotid stenosis Hip bursitis, left Hx-TIA (transient ischemic attack) (02/2024) recent admit to [facility], symptoms of speech difficulty have completely improved adn pt. reports no ongoing symptoms AMY (generalized anxiety disorder) Hx SBO History of Holter monitoring currently has, will complete on 04/16 GERD (gastroesophageal reflux disease) Hyperlipidemia Hypertension Anemia Wound infection (02/2024) right leg, inside of calf, due to a fall, currently taking cephalexin, states wound is resolving, will see the wound center at [facility], wound is dry, per pt. DM2 (diabetes mellitus, type 2) Peripheral neuropathy Amputated toe partial, left toe Surgical History History of intestinal surgery due to sbo History of trabeculectomy left eye History of arthroscopy of right shoulder Hx of colonoscopy Hx of esophagogastroduodenoscopy Hx of toe surgery multiple- bunionectomies, amputation of tips of toes History of carpal tunnel release of both wrists Hx of total hysterectomy Hx of total knee arthroplasty S/P cholecystectomy Hx of bilateral cataract extraction Family History Other Hypertension Social History Smoking Status: Never smoker Second Hand Exposure: No; Do You Dip or Chew Tobacco: No; Tobacco Cessation Education Requested by Patient: No Hx Alcohol Use: Yes Alcohol type: wine Alcohol type Comment: daily w/dinner Alcohol Intake Frequency: 4 or More x per/Week Hx Substance Use: No Preferred Language: Kazakh Communication Ability: Effective Visual Impairment: Limited Hearing Ability: Normal Early Head Start Director Required: No Beliefs That Will Affect Care: Anglican marital status: Current Living Situation: Spouse Current Living Situation Comment: lives at home with current occupational status: retired Other Information That Helps Us Care for You: No Feels Safe at Home: Yes Safety Concerns: Feels Safe At This Time Diet: regular caffeine: Yes during the past year weight has: remained stable Gender Identity: Female Assistive Devices: Walker Assistive Devices Comment: rollator with patient Review of Systems Review of Systems: All systems reviewed & are unremarkable except as noted in HPI & below Physical Exam Constitutional: WD/WN, vitals as above cooperative and comfortable; not in distress ENMT: Ears: no hearing impairment Neck: trachea midline Respiratory: normal respiratory effort, lungs clear to auscultation Auscultation: + diminished lung sounds Cardiovascular: Rate/Rhythm: regular rate and regular rhythm Vessels: posterior tibial pulses present, dorsalis pedis pulses present and radial pulses present; + abnormal peripheral pulses Extremities: normal capillary refill; no edema Gastrointestinal (Abdomen): Inspection/Auscultation: abdomen normal to inspection and normal bowel sounds Percussion/Palpation: abdomen soft; abdomen nontender and no guarding Musculoskeletal: no cyanosis or clubbing, extremities motor strength 5/5 Skin: no rashes, warm and dry Neurologic: moves all extremities and awake; no focal motor deficits and not confused Psychiatric: A+Ox3, euthymic affect Results & Data Vital Signs (Past 12 Hours) Vital Signs Temp Pulse Pulse Resp BP Pulse Ox O2 Del Method 08/21/24 14:57 59 L 08/21/24 10:39 36.8 C 56 L 19 112/66 97 Room Air 08/21/24 08:58 60
[2024-08-21] MEDS: ASPIRIN 81 MG ECTAB PO SCH (17:28)
[2024-08-21] MEDS: CLOPIDOGREL BISULFATE 75 MG TAB PO SCH (17:28)
[2024-08-21] MEDS: MAGNESIUM SULFATE / D5W 1 GM/100 ML BAG IV SCH (17:29)
[2024-08-21] MEDS: INSULIN ASPART PER UNIT CHARGE SC SCH (18:13)
[2024-08-22 07:19] LABS: Basophils # (auto) 0.01 K/uL (0.00-0.20); Basophils % (auto) 0.2 %; Eosinophils # (auto) 0.11 K/uL (0.00-0.50); Eosinophils % (auto) 1.9 %; Hematocrit (blood only) 29.2 % (37.0-47.0); Hemoglobin 10.2 g/dl (12.0-16.0); Immature Granulocytes # (auto) 0.02 K/uL (0.01-0.20); Immature Granulocytes % (auto) 0.4 %; Lymphocytes # (auto) 0.63 K/uL (1.20-3.40); Mean Corpuscular Hemoglobin 34.6 pg (25.0-34.0); Mean Corpuscular Hgb Conc 34.9 g/dL (32.0-36.0); Mean Platelet Volume 8.4 fL (9.4-12.4); Monocytes # (auto) 0.53 K/uL (0.11-0.59); Monocytes % (auto) 9.3 %; Neutrophils # (auto) 4.41 K/uL (1.40-6.50); Neutrophils % (auto) 77.2 %; Platelet Count 180 K/uL (130-400); RDW Coefficient of Variation 11.9 % (11.5-14.5); RDW Standard Deviation 43.6 fL (36.4-46.3); Red Blood Count 2.95 M/uL (4.20-5.40); White Blood Count 5.71 K/ul (4.8-10.8)
[2024-08-22 07:22] VITALS: RESP 19
[2024-08-22 09:50] LABS: BUN Creatinine Ratio 9.6 (10-20); Calcium 9.1 mg/dl (8.6-10.3); Creatinine Clr Calc Pharmacy 54.7 ml/min; Magnesium 1.6 mg/dl (1.7-2.4)
[2024-08-22 10:51] VITALS: TEMP 98.4; O2SAT 96
[2024-08-22 11:33] VITALS: BP 129/85; PULSE 97
--- NOTE | 2024-08-22 18:27 | Discharge Summary ---
Discharge Summary Date of Service August 22, 2024 Principal Dx & Hospital Course #1 = Principal Diagnosis (1) Rectal bleed: per previous hospitalist notes with addendum: 83-year-old female with past medical history significant for type 2 diabetes, diabetic peripheral angiopathy, SIADH, dyslipidemia, hypomagnesia, hypertension, purpura senilis, bilateral carotid stenosis, GERD, nontraumatic complete tear of left rotator cuff, history of partial amputation of toe of left foot, anxiety, history of TIA, history of transcarotid artery revascularization who presented to the hospital for rectal bleed. Rectal bleed Acute blood loss anemia Secondary to Colon Ischemia Severe SMA stenosis GI service consulted Did not recommend colonoscopy Rectal bleeding felt to be secondary to colonic ischemia secondary to severe SMA stenosis CT Abd/pelvis: 1. Wall thickening of the ascending colon with adjacent stranding and a small amount of fluid. The findings represent a moderate to severe colitis involving the right colon. Although nonspecific, an infectious or ischemic etiology is favored. No extraluminal gas. No abscess. 2. Extensive atherosclerotic plaque within the abdominal aorta and branch vessels. 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 3. No bowel obstruction. Patient placed on bowel rest Hematochezia resolved Hg stable ~10 for 2-3 days ok to resume ASA and Plavix per GI Repeat CBC in 1 week consulted/messaged Vascular Surgery service re: severe SMA stenosis with colon ischemia Evaluated by Dr. Cesar/IZABEL Herman "Pt with 2 areas of stenosis in SMA and one in celiac artery. ERICK patent. No definite occlusions. Sx completely resolved at this time, denies any significant pain. No sx of post prandial pain, food fear, or signficant unintended weight loss to indicate chronic mesenteric ischemia. Discussed with Dr Cesar at length. Will reeval in office in 6 months along with her scheduled TCAR surveillance. " Recommended repeat CT abdomen pelvis to reevaluate SMA and celiac artery stenosis in 6 months History of TIA History of transient expressive aphasia Bilateral ICA stenosis 60 to 70% worse on left side Status post transcarotid artery revascularization with stent placement on the left side - ff up with Vascular Surgery Dr. Cesar in 6 months Diabetes type 2 Currently not on meds HbA1c is 7.8 ISS given Hypomagnesemia Hyponatremia History of SIADH K and Mg replaced - repeat K and Mg on ff up with PCP this week Hyperlipidemia On statin Hypertension On Coreg and lisinopril and amlodipine GERD On Protonix Notes For Next Care Provider please repeat CBC, K and Mg level on ff up visit Medication Changes From Visit None Admission HPI Per Admitting Provider 83-year-old female with past medical history significant for type 2 diabetes, diabetic peripheral angiopathy, SIADH, dyslipidemia, hypomagnesia, hypertension, purpura senilis, bilateral carotid stenosis, GERD, nontraumatic complete tear of left rotator cuff, history of partial amputation of toe of left foot, anxiety, history of TIA, history of transcarotid artery revascularization comes because of rectal bleed. Today 6 PM she started to have rectal bleed. She had few small bloody bowel movements and 1 large bloody bowel movement. In the ER also she has couple of episodes of blood per rectum. Has some abdominal discomfort. Feeling nauseous. Micturating okay. Denies chest pain or shortness of breath. Since about a week has some cold symptoms with runny nose. No fevers. No headache. No dizziness. Vision is okay. No earaches. She ambulates with a walker. Currently resting comfortably and hemodynamically stable. On 03/29/2024 she was admitted for transient expressive aphasia and brain MRI was okay but CTA head and neck showed moderate bilateral ICA stenosis 60 to 70% somewhat worse on the left side. She was placed on dual antiplatelets. On 04/16/2024 status post transcarotid artery revascularization with stent placement. Past medical history. As mentioned above Past surgical history. Right shoulder arthroscopy. Button correction. Carpal tunnel surgery. Colonoscopy. Dental surgery. EGD with biopsy. Bowel surgery for bowel obstruction. Knee arthroscopy. Right laser trabeculoplasty. Partial removal of eye fluid. Partial removal of toe. Tonsillectomy. Bilateral cataracts surgery. Removal of foot nerve lesion. Cholecystectomy. Repair of hammertoe. Total abdominal hysterectomy with removal of tubes. Social history. . No smoking. Alcohol 2/day per epic. No drug use. Family history. Mother had arthritis. Rheumatic fever. Stroke. Father had CHF. Brother has diabetes. Admission Exam Per Admitting Provider General- Not in distress Head- atraumatic Eyes- PERRL. ENT- oropharynx clear Neck- supple, no JVD. Lungs- clear to auscultation no wheezing or crackles Heart- regular rate and rhythm; no murmur, no gallop. Abdomen- normal bowel sounds, soft, nontender, no distension Extremities- no pretibial edema, no erythema seen Neuro- alert, oriented PERRL, no facial palsy; no dysarthria; moves extremities Discharge Exam General- oriented x 3, not in distress, speaks in sentences with no effort or accessory muscle use Eyes- anicteric Neck- no JVD Lungs- clear breath sounds bilaterally, no rales/wheezes Heart- normal rate, regular rhythm; no murmurs Abdomen- normal bowel sounds, nondistended, soft, nontender Extremities- no pretibial edema, no calf tenderness Neuro- alert, oriented x 3; no gross focal neurologic deficits Skin- warm & dry Updated Medication List Medication Instructions Recorded Confirmed Type acyclovir 400 mg tablet 400 mg PO BID 08/19/24 08/19/24 History amlodipine 2.5 mg tablet 2.5 mg PO DAILY 08/19/24 08/19/24 History aspirin 81 mg tablet,delayed 81 mg PO DAILY 08/19/24 08/19/24 History release atorvastatin 40 mg tablet 40 mg PO DAILY 08/19/24 08/19/24 History carvedilol 6.25 mg tablet 6.25 mg PO BID 08/19/24 08/19/24 History clopidogrel 75 mg tablet 75 mg PO DAILY 08/19/24 08/19/24 History lisinopril 40 mg tablet 40 mg PO DAILY 08/19/24 08/19/24 History magnesium oxide 500 mg PO BID 08/19/24 08/19/24 History pantoprazole 20 mg tablet,delayed 20 mg PO DAILY 08/19/24 08/19/24 History release Hospital Stay Data Consultations 08/19/24 20:50 ED Decision to Admit Stat 08/20/24 08:00 Consult Gastroenterology Routine 08/21/24 10:15 Consult Vascular Surgery Routine Diagnostic Imagining Performed 08/20/24 08:56 CT abd pelvis oral and IV con Urgent FINDINGS: There is moderate elevation of the right hemidiaphragm. No pneumatosis, free air or portal venous gas is present. Mild biliary ductal dilatation is likely related to cholecystectomy. There are no hepatic lesions. The spleen, adrenal glands, kidneys and pancreas are unremarkable. There is no evidence for a bowel obstruction. The appendix is normal. There is moderate to severe circumferential wall thickening of the ascending colon with mild pericolonic stranding and a small amount of fluid. No fluid collection to status post abscess is present. There is no extraluminal gas. There is sigmoid diverticulosis without evidence for acute diverticulitis. Trace fluid within the pelvis is present. There are no pelvic fluid collections. There is extensive calcified atherosclerotic plaque within the abdominal aorta and branch vessels. 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 There is mild stenosis at the origin of the celiac axis. The inferior mesenteric artery is patent but contains extensive calcified plaque. There is no lymphadenopathy. IMPRESSION: 1. Wall thickening of the ascending colon with adjacent stranding and a small amount of fluid. The findings represent a moderate to severe colitis involving the right colon. Although nonspecific, an infectious or ischemic etiology is favored. No extraluminal gas. No abscess. 2. Extensive atherosclerotic plaque within the abdominal aorta and branch vessels. 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 3. No bowel obstruction. Pending Results Patient Have Any Pending Studies at Discharge: Yes Discharge Instructions Given to Patient (Per Discharging Provider) CONTINUE YOUR USUAL MEDICATIONS. PLEASE CALL YOUR PRIMARY CARE PHYSICIAN OR RETURN TO THE ER IF WITH WORSENING OF SYMPTOMS, INCLUDING ABDOMINAL PAIN, BLOODY/BLACK STOOLS, WEAKNESS, DIZZINESS, CHEST PAIN, SHORTNESS OF BREATH, ETC FOLLOW UP WITH PRIMARY CARE PHYSICIAN in 1 WEEK. REPEAT HEMOGLOBIN, POTASSIUM AND MAGNESIUM LEVEL DURING THAT VISIT. FOLLOW UP WITH DR. CESAR'S OFFICE IN 6 MONTHS. YOU WILL ALSO NEED A REPEAT CT SCAN OF YOUR ABDOMEN AT THAT TIME. PLEASE CALL HIS OFFICE FOR AN APPOINTMENT. CONTACT INFORMATION NOTED BELOW. TAKE CARE. Total Time Total Time Spent Total Time Spent (In Minutes): 40 minutes
== END 2024-08-22 12:25 | disposition home or self-care (01) | DRG 394 ==
LOC: ED 18:44 → SUATTDRO 21:58 → 2S 21:58